=== PATIENT | female | born 1945 | race Caucasian/White ===

== ENCOUNTER → 2017-03-30 | Outpatient (CLI) | payer MEDICARE, BC ==
--- NOTE | 2017-03-30 10:37 | CT ---
EXAMINATION TYPE: CT abdomen pelvis wo con DATE OF EXAM: 03/30/2017 9:52 AM COMPARISON: NONE HISTORY: RUQ and RLQ pain CT DLP: 971.40 mGycm FINDINGS: LUNG BASES: No evidence for nodule. No evidence for infiltrate. LIVER/GB: There is evidence of cholelithiasis. Fatty infiltration is noted. No space-occupying hepati c lesion. PANCREAS: No pancreatic mass identified. No inflammatory process seen. SPLEEN: No evidence for splenomegaly. No intrasplenic lesions seen. ADRENALS: No adrenal nodules identified. No evidence for thickening. KIDNEYS: No evidence for renal mass. Left-sided extrarenal pelvis is suggested. No nephrolithiasis. N o hydronephrosis. BOWEL: Appendix has a normal appearance. No evidence of bowel obstruction. No inflammatory process. S igmoid diverticulosis without diverticulitis. Lymph nodes: No evidence for adenopathy greater than 1 cm. Abdominal aorta: Atheromatous changes seen. No evidence for aneurysm. Genital organs: No significant abnormality. Other: No significant abnormality. IMPRESSION: 1. UNCOMPLICATED CHOLELITHIASIS. 2. Hepatic steatosis.
== END | disposition home or self-care (01) ==
LOC: RADCTMAIN 09:35
PROVIDERS: ATTEND Family Medicine
DX: K80.20 Calculus of gallbladder without cholecystitis without obstruction (principal); K76.0 Fatty (change of) liver, not elsewhere classified; Z88.8 Allergy status to other drugs, medicaments and biological substances
CPT/HCPCS: 74176

== ENCOUNTER → 2017-04-22 | Outpatient (CLI) | payer MEDICARE, BC ==
--- NOTE | 2017-04-22 11:04 | US ---
EXAMINATION TYPE: US abdomen complete DATE OF EXAM: 04/22/2017 8:16 AM COMPARISON: NONE CLINICAL HISTORY: 71-year-old female R10.11 RUQ abdominal pain, K80.0 Gallstones. TECHNIQUE: Multiple sonographic images of the abdomen are obtained. FINDINGS: PHOTOGRAPH INSPECTOR NOTES: Patient of very large body habitus, technically difficult and somewhat limited st udy. EXAM MEASUREMENTS: Liver Length: 19.5 cm Gallbladder Wall: 0.2 cm CBD: 0.5 cm Spleen: 11.2 cm Right Kidney: 11.6 x 5.0 x 4.6 cm Left Kidney: 11.4 X 5.1 x 5.4 cm Pancreas: Limited visualization of the tail secondary to shadowing from bowel gas. Remaining portion s appear within normal limits. Liver: Echogenic and attenuating and mildly enlarged. This secondarily limits assessment for focal le shelli. There is some nodular hypoechoic areas along the gallbladder fossa suggesting focal fatty spari ng. Gallbladder: Small layering calculi present within measuring up to 7 mm. No abnormal gallbladder dis tention, wall thickening, or pericholecystic fluid. CBD: wnl Spleen: wnl Right Kidney: No hydronephrosis. Left Kidney: There is either a 2.8 cm parapelvic cyst in the upper pole or calyceal dilatation. Upper IVC: Not well seen Abd Aorta: bifurcation not visualized due to overlying bowel IMPRESSION: 1. Cholelithiasis without ancillary findings of acute cholecystitis at this time. 2. Hepatomegaly with moderate to severe hepatic steatosis. Correlate with LFTs, lipid profile, and pa tient risk factors. 3. Either a 2.8 cm parapelvic cyst or upper pole calyceal dilatation within the left kidney. Recommen d reassessment in 3 - 6 months.
== END | disposition home or self-care (01) ==
LOC: RADUSWWP 07:42
PROVIDERS: ATTEND Family Medicine
DX: K80.20 Calculus of gallbladder without cholecystitis without obstruction (principal); R16.0 Hepatomegaly, not elsewhere classified
CPT/HCPCS: 76700

== ENCOUNTER → 2017-04-29 | Outpatient (CLI) | payer MEDICARE, BC ==
[2017-04-29 15:27] LABS: ALT 20 U/L (9-52); AST 20 U/L (14-36); Alkaline Phosphatase 110 U/L (38-126); Anion Gap 11 mmol/L; Blood Urea Nitrogen 11 mg/dL (7-17); Calcium 9.5 mg/dL (8.4-10.2); Carbon Dioxide 27 mmol/L (22-30); Chloride 104 mmol/L (98-107); Glucose 148 mg/dL (74-99); Non-African American GFR(MDRD) >60 (>60 ml/min/1.73 sqM); Potassium 3.4 mmol/L (3.5-5.1); Sodium 142 mmol/L (137-145); Total Bilirubin 0.4 mg/dL (0.2-1.3); Total Protein 6.5 g/dL (6.3-8.2)
== END | disposition home or self-care (01) ==
LOC: LABWHC1 14:22
PROVIDERS: ATTEND Family Medicine
DX: R16.0 Hepatomegaly, not elsewhere classified (principal)
CPT/HCPCS: 36415; 80053

== ENCOUNTER → 2017-05-11 | Outpatient (CLI) | payer MEDICARE, BC ==
--- NOTE | 2017-05-11 13:54 | XR ---
EXAMINATION TYPE: XR cervical spine limited DATE OF EXAM: 05/11/2017 COMPARISON: NONE HISTORY: Chronic neck pain TECHNIQUE: 3 views are submitted. FINDINGS: The odontoid view is nondiagnostic but appears intact on the lateral view.. There are no compression deformities. The prevertebral soft tissue structures are within normal limits. Degenerative disc d isease at all levels with most marked changes at levels C5-6 and C6-C7 with facet arthropathy also no tresa at all levels. Posterior spondylosis C4-5 and C5-C6 may result in canal stenosis. IMPRESSION: 1. Multilevel degenerative disc disease with cervical spondylosis. Consider follow-up MRI.
== END | disposition home or self-care (01) ==
LOC: RADXRMAIN 13:19
PROVIDERS: ATTEND Family Medicine
DX: M50.322 Other cervical disc degeneration at C5-C6 level (principal); M47.812 Spondylosis without myelopathy or radiculopathy, cervical region
CPT/HCPCS: 72040

== ENCOUNTER → 2017-06-15 | Outpatient (CLI) | payer MEDICARE, BC ==
--- NOTE | 2017-06-15 14:01 | MR ---
EXAMINATION TYPE: MR cervical spine wo con DATE OF EXAM ORDERED: 06/15/2017 1:48 PM HISTORY: M47.012 osteoarthritis. TECHNOLOGIST HISTORY AT TIME OF EXAM: osteoarthritis COMPARISON: None. TECHNIQUE: Multiplanar, multiecho imaging of the cervical spine was obtained without contrast on a 1 .5 marito magnet. FINDINGS: Prevertebral soft tissues are normal. Vertebral body height and alignment are maintained. Atlantoaxial relationships are normal. There is abnormal signal within the medulla and the yudith. This may simply represent layering degenera tion. Cord signal is unremarkable. At C2-C3, is mild disc space loss. There is mild left-sided intervertebral foraminal narrowing. There is a diffuse disc displacement. There is mild hypertrophic changes in the left facet. There is mild uncovertebral joint disease. At C3-C4, there is disc space loss. There is a diffuse disc displacement. There is bilateral interver tebral foraminal narrowing. The facets are unremarkable. There is uncovertebral joint disease. At C4-C5, there is disc space loss. There is a mixed spondylitic bar present posteriorly deforming th e thecal sac without definite cord contact. The intervertebral foramina are narrowed bilaterally. The re is uncovertebral joint disease. There is mild facet arthropathy on the right. At C5-C6, there is disc space loss. There is a mixed spondylitic bar present posteriorly deforming th e thecal sac without cord contact. There is bilateral intervertebral foraminal narrowing, worse on th e right than the left. There is uncovertebral joint disease. The facets are unremarkable. At C6-C7, there is disc space loss. There is no significant compressive discopathy. There is bilatera l intervertebral foraminal narrowing which is relatively severe. There is mild facet arthropathy. The re is uncovertebral joint disease. At C7-T1, no definite abnormality is seen. IMPRESSION: 1. EXTENSIVE DEGENERATIVE CHANGE. 2. MULTILEVEL INTERVERTEBRAL FORAMINAL NARROWING. 3. ABNORMAL SIGNAL WITHIN THE YUDITH MAY REPRESENT WALLERIAN DEGENERATION. THIS COULD BE CONFIRMED WITH AN MRI OF THE BRAIN.
== END | disposition home or self-care (01) ==
LOC: RADMRIMAIN 13:09
PROVIDERS: ATTEND Family Medicine
DX: M99.71 Connective tissue and disc stenosis of intervertebral foramina of cervical region (principal); M47.812 Spondylosis without myelopathy or radiculopathy, cervical region
CPT/HCPCS: 72141

== ENCOUNTER → 2017-07-02 | Outpatient (CLI) | payer MEDICARE, BC ==
--- NOTE | 2017-07-02 08:54 | MR ---
EXAMINATION TYPE: MR brain wo con DATE OF EXAM: 07/02/2017 8:45 AM. COMPARISON: Previous MRI of the cervical spine dated 06/15/2017. HISTORY: Abnormal MRI of the cervical spine. Technique: Multiplanar, multiecho imaging of the brain was obtained without intravenous contrast. FINDINGS: There is a partially empty sella. Midline structures are otherwise unremarkable. There is a normal craniocervical junction. Echoplanar diffusion imaging is normal. There continues to be some abnormal signal within the alicia. This likely reflects layering degeneratio n. There are both punctate and confluent FLAIR lesions in the deep white matter tracts of the cerebral h emispheres. These are nonspecific. A differential diagnosis includes demyelination, small vessel dise ase, hypertension, migraine headaches and Lyme's disease. There is no mass effect or midline shift. I do not see evidence of intracranial blood. There is mild mucoperiosteal thickening involving the right frontal and ethmoid sinuses bilaterally a s well as the right maxillary sinus. The orbits are normal. There are normal vascular flow voids. There is no evidence of a CP angle mass lesion. IMPRESSION: 1. NO ACUTE INTRACRANIAL ABNORMALITY. 2. BOTH CONFLUENT AND PUNCTATE PERIVENTRICULAR WHITE MATTER FLAIR LESIONS LIKELY REFLECTING SMALL VES LEIGH ANN DISEASE. 3. CHANGES WITHIN THE ALICIA ARE FELT TO REFLECT LIMITED DEGENERATION. 4. PARTIALLY EMPTY SELLA. 5. MILD SINUS MUCOSAL DISEASE.
== END | disposition home or self-care (01) ==
LOC: RADMRIMAIN 08:02
PROVIDERS: ATTEND Family Medicine
DX: R90.89 Other abnormal findings on diagnostic imaging of central nervous system (principal)
CPT/HCPCS: 70551

== ENCOUNTER → 2018-01-16 | Outpatient (CLI) | payer MEDICARE ==
[2018-01-16 13:32] LABS: Blood Urea Nitrogen 14 mg/dL (7-17)
--- NOTE | 2018-01-16 14:59 | CT ---
EXAMINATION TYPE: CT angio chest DATE OF EXAM: 01/16/2018 COMPARISON: CT chest November 12, 2016 and older studies July 13, 2016. HISTORY: Aortic aneurysm follow-up. Shortness of breath. CT DLP: 390.4 mGycm. Automated Exposure Control for Dose Reduction was Utilized. CONTRAST: CTA scan of the thorax is performed with IV Contrast, patient injected with 100 mL of Omnipaque 350, pulmonary embolism protocol. MIP Images are created on CT scanner and reviewed. FINDINGS: LUNGS: Scattered small nodules throughout the left lung remain present. Largest nodule inferior later al left upper lobe on axial image 22 measures 6 x 4 mm and is not significantly changed in size from last 2 CTs. Additional scattered stable nodules are seen on axial images 16, 24, 30, 34, and 37 for r eference. There are similar stable scattered right-sided lung nodules redemonstrated. For reference 2 small nodules axial image 30 are unchanged from priors. No pleural effusion or pneumothorax is seen. Lungs are grossly clear. Tracheobronchial tree is patent. MEDIASTINUM: There is no CT evidence for central pulmonary embolism. There are no greater than 1 cm hilar or mediastinal lymph nodes. No significant pericardial effusion is seen. Cardiomegaly is rede monstrated. Coronary artery calcification is again seen which is noted marker for coronary artery dis ease. Ascending aorta measures 3.8 x 3.7 cm diameter axial image 28 not significantly changed from la st 2 studies. OTHER: Stone filled contracted gallbladder is redemonstrated. IMPRESSION: Accounting for technical differences, presumed stable borderline aneurysmal change of asc ending aorta measuring up to 3.8 cm in diameter on current study. Stable scattered bilateral pulmonar y nodules. No significant new finding seen.
== END | disposition home or self-care (01) ==
LOC: RADCTMAIN 12:52
PROVIDERS: ATTEND Internal Medicine
DX: R91.8 Other nonspecific abnormal finding of lung field (principal)
CPT/HCPCS: 82565; 84520; 71275; 36415; Q9967

== ENCOUNTER → 2018-07-06 | Outpatient (CLI) | payer MEDICARE ==
--- NOTE | 2018-07-07 03:20 | MR ---
EXAMINATION TYPE: MR knee LT wo con DATE OF EXAM: 07/06/2018 COMPARISON: None HISTORY: Lt knee pain, no trauma, poss stress fracture TECHNIQUE: Multiplanar, multisequence imaging of the left knee is performed without IV contrast. FINDINGS: There is a mild knee joint effusion. The posterior cruciate ligament is intact. There is partial tear of the anterior cruciate ligament. There is essentially obliteration of the anterior horn of the lateral meniscus. Posterior horn of the lateral meniscus shows small horizontal tear. There is small horizontal tear of the posterior horn medial meniscus extending to the inferior surfac e. There is severe narrowing of the anterior medial joint space with thinning of the anterior horn me dial meniscus. There is hypertrophic spurring of the femoral and tibial condyles. There is moderate n arrowing of the patellofemoral joint space with spur formation. The collateral ligaments are intact. There is a 8mm degenerative cyst in the subchondral lateral tibial condyle. There is a rounded 6 mm mixed signal lesion within the lateral joint space. This could be an intra-ar ticular loose body related to synovial chondromatosis. I see no fracture. IMPRESSION: Partial tear anterior cruciate ligament. Hypertrophic moderate osteoarthritis. Narrowing of the joint spaces. Patellofemoral joint space is severely narrowed. Obliteration of the anterior horn of the la teral meniscus. Degenerative thinning and displacement of the anterior horn medial meniscus. Horizont al tears of the posterior horn of the medial and lateral meniscus. Intra-articular loose body in the lateral joint space.
== END | disposition home or self-care (01) ==
LOC: RADMRIMAIN 18:55
PROVIDERS: ATTEND Family Medicine
DX: S83.512A Sprain of anterior cruciate ligament of left knee, initial encounter (principal); M17.12 Unilateral primary osteoarthritis, left knee; M25.862 Other specified joint disorders, left knee; S83.242A Other tear of medial meniscus, current injury, left knee, initial encounter; S83.282A Other tear of lateral meniscus, current injury, left knee, initial encounter

== ENCOUNTER → 2018-08-09 | Outpatient (CLI) | payer MEDICARE ==
[2018-08-09 10:39] LABS: HCT 42.2 % (34.0-46.0); HGB 13.4 gm/dL (11.4-16.0); MCHC 31.6 g/dL (31.0-37.0); MCV 91.8 fL (80.0-100.0); Mean Platelet Volume 7.1; Platelet Count 321 k/uL (150-450); WBC 8.3 k/uL (3.8-10.6)
[2018-08-09 10:50] LABS: Albumin 3.6 g/dL (3.5-5.0); Calcium 9.3 mg/dL (8.4-10.2); Potassium 4.1 mmol/L (3.5-5.1); Total Bilirubin 0.5 mg/dL (0.2-1.3); Total Protein 6.7 g/dL (6.3-8.2)
[2018-08-09 10:58] LABS: Partial Thromboplastin Time 23.1 sec (22.0-30.0)
[2018-08-09 11:07] LABS: Appearance,Urine Cloudy (Clear); Bacteria,Urine Many /hpf; Bilirubin,Urine Negative (Negative); Blood,Urine Moderate (Negative); Color,Urine Yellow; Glucose,Urine (UA) Negative (Negative); Hyaline Casts,Urine 1 /lpf (0-2); Ketones,Urine Negative (Negative); Leukocyte Esterase,Urine Moderate (Negative); Mucus,Urine Moderate /hpf; Nitrite,Urine Positive (Negative); PH, Urine 5.5 (5.0-8.0); Protein,Urine Trace (Negative); RBC,Urine 2 /hpf (0-5); Specific Gravity,Urine 1.023 (1.001-1.035); Squamous Epithelial Cell,Urine 5 /hpf (0-4); WBC,Urine 19 /hpf (0-5)
== END | disposition home or self-care (01) ==
LOC: LABPAT 10:06
PROVIDERS: ATTEND Orthopaedic Surgery Sports Medicine
DX: Z01.812 Encounter for preprocedural laboratory examination (principal); Z01.818 Encounter for other preprocedural examination; Z79.01 Long term (current) use of anticoagulants
CPT/HCPCS: 80053; 81001; 85027; 85610; 85730; 87070; 93005

== ENCOUNTER 2018-08-17 12:16 | Inpatient (IN) | payer MEDICARE ==
[2018-08-11 12:05] VITALS: BMI 33.7
[~2018-08-17 12:16] MED LIST: ACETAMINOPHEN TAB 500 MG TAB PO ONE; DEXAMETHASONE SOD PHOSPHATE 10 MG/ML 1 ML VIAL IV ONE; HYDROmorphone 0.5 MG/0.5 ML SYRINGE IVP PRN; LACTATED RINGERS 1,000 ML IV SCH; LIDOCAINE 1% 20 ML VIAL (10MG/ML) FOR IV START INTRADERMA PRN; MELOXICAM 7.5 MG TAB PO ONE; MIDAZOLAM 2 MG/2 ML VIAL IV PRN; NALBUPHINE 10 MG/ML VIAL (10ML MDV) IV PRN; NALOXONE 0.4 MG/ML 1 ML VIAL IV PRN; ONDANSETRON 4 MG/2 ML VIAL IVP ONE; TRANEXAMIC ACID 1,000 MG in SODIUM CHLORIDE 0.9% 50 ML IVPB ONE; VANCOMYCIN 1,500 MG in SODIUM CHLORIDE 0.9% 250 ML IVPB ONE; diphenhydrAMINE 50 MG/ML 1 ML VIAL IVP PRN; fentaNYL (PF) 50 MCG/ML 2 ML AMP IV PRN
[2018-08-17] MEDS ORDERED: ceFAZolin 2,000 MG in DEXTROSE/WATER 1 50ML.BAG IVPB STA (13:01)
[2018-08-17] MEDS ORDERED: ONDANSETRON 4 MG/2 ML VIAL IVP PRN (13:14)
[2018-08-17] MEDS ORDERED: HYDROcodone/APAP 10-325MG 1 EACH TAB PO PRN (13:14)
[2018-08-17] MEDS ORDERED: traMADol 50 MG TAB PO PRN (13:14)
[2018-08-17] MEDS ORDERED: HYDROmorphone 1 MG/ML 1 ML SYRINGE IVP PRN ×3 (13:14)
[2018-08-17] MEDS ORDERED: TEMAZEPAM 15 MG CAP PO PRN (13:14)
[2018-08-17] MEDS ORDERED: NA PHOS,M-B/NA PHOS,DI-BA 133 ML ENEMA RECTAL PRN (13:14)
[2018-08-17] MEDS ORDERED: DIAZEPAM 5 MG TAB PO PRN (13:14)
[2018-08-17] MEDS ORDERED: BISACODYL 10 MG SUPP RECTAL PRN (13:14)
[2018-08-17] MEDS ORDERED: HYDROcodone/APAP 7.5-325MG 1 EACH TAB PO PRN (13:14)
[2018-08-17] MEDS ORDERED: hydrOXYzine PAMOATE 25 MG CAP PO PRN (13:14)
[2018-08-17] MEDS ORDERED: NALOXONE 0.4 MG/ML 1 ML VIAL IV PRN (13:14)
[2018-08-17] MEDS ORDERED: HYDROcodone/APAP 5-325MG 1 EACH TAB PO PRN ×2 (13:14)
[2018-08-17] MEDS ORDERED: MAGNESIUM HYDROXIDE 2,400 MG/10 ML CUP PO PRN (13:14)
[2018-08-17] MEDS ORDERED: ceFAZolin IN SWFI 2 GM/20 ML SYRINGE IVP ONE (13:15)
[2018-08-17] MEDS: ROPIVACAINE 246.25 MG, EPINEPHrine 0.5 MG, KETOROLAC 30 MG, cloNIDine HCL/PF 80 MCG, WA... MISCELLANE ONE ×10 (14:14→16:30)
[2018-08-17] MEDS ORDERED: PROPOFOL 10 MG/ML 20 ML VIAL IV ONE (15:54)
[2018-08-17] MEDS ORDERED: diphenhydrAMINE 50 MG/ML 1 ML VIAL ONE (15:54)
[2018-08-17] MEDS ORDERED: fentaNYL (PF) 50 MCG/ML 2 ML AMP ONE (15:54)
[2018-08-17] MEDS ORDERED: TRANEXAMIC ACID 1,000 MG/10 ML VIAL ONE (15:54)
[2018-08-17] MEDS ORDERED: SODIUM CHLORIDE 0.9% 100 ML BAG ONE (15:54)
[2018-08-17] MEDS ORDERED: MORPHINE SULFATE (PF) 0.3 MG/0.3 ML SYR ONE (15:54)
[2018-08-17] MEDS ORDERED: MIDAZOLAM 2 MG/2 ML VIAL ONE (15:54)
[2018-08-17] MEDS ORDERED: ceFAZolin 3,000 MG in SODIUM CHLORIDE 0.9% IRRIGATIO 3,000 ML IRRIGATION ONE (16:19)
--- NOTE | 2018-08-17 18:06 | OP ---
OPERATIVE REPORT DATE OF PROCEDURE: 08/17/2018 SURGEON: Nakul James MD VENEER STACKER: Dante Dougherty PA-C PREOPERATIVE DIAGNOSIS: Left knee osteoarthrosis. POSTOPERATIVE DIAGNOSIS: Left knee osteoarthrosis. OPERATION: Left total knee arthroplasty. ANESTHESIA: Spinal with sedation. ESTIMATED BLOOD LOSS: 100 mL. TOURNIQUET TIME: 42 minutes @ 250 mmHg. COMPLICATIONS: None apparent. DRAINS: None. DISPOSITION: Post-Anesthesia Care Unit. INDICATIONS: Ana is a 72-year-old female with longstanding history of left knee pain. History and physical examination are consistent with advanced left knee osteoarthrosis. She has been through significant nonoperative management up to this point. Further treatment options were discussed, and she decided to go forward with left total knee arthroplasty. The risks of the procedure were discussed with her in detail. These risks include but are not limited to risk of infection, nerve damage, bleeding, pain and a risk of deep vein thrombosis which could lead to fatal pulmonary embolism. There is also a risk of loosening of the implant which could require revision operation. The patient understands these risks. All of her questions with regard to the risks were answered to her satisfaction. Appropriate informed consent was obtained. DESCRIPTION OF THE PROCEDURE: The patient was identified in the preoperative holding area. Surgical site was marked by both the patient and myself. She was given 2 grams of Ancef IV for prophylactic purposes. She was then transferred to the operative suite. She was placed supine on the operating room table. Spinal anesthetic was then administered and dosed per the anesthesia department without apparent complication. Examination under anesthesia was then performed. The patient was 2-3 degrees shy of full extension. She had 100 degrees of flexion, and the medial collateral ligament, lateral collateral ligament and posterior cruciate ligaments were stable. Tourniquet was then placed high on the left upper thigh, well padded in preparation for surgery. The patient's left lower extremity was then prepped and draped in the usual sterile fashion. Standard surgical pause was undertaken to ensure that we were operating on the correct site and that appropriate preoperative antibiotics had been given. All staff in the room were in agreement and we proceeded. The outlines of the patella were marked with a surgical pen. A planned 12 cm vertical incision centered over the patella was marked with a surgical pen. Leg was then exsanguinated with an Esmarch dressing. The knee was then flexed and the tourniquet was inflated to 250 mmHg. The total tourniquet time for the procedure was 42 minutes. Incision was then made with a 10 blade scalpel. Dissection was carried down sharply to the overlying fascia. Great care was taken to minimize the skin flaps. The knee was then exposed using standard medial parapatellar approach. A small cuff of quadriceps tendon was then left for suturing. She was in quite a bit of valgus preoperatively. A very minimal medial release was made. This was made just enough to place the retractors medially. The medial meniscus was then excised as well. The lateral meniscus was also released anteriorly. The leg was then externally rotated. The patella was everted. The knee was flexed. The retractors were then placed to protect the collateral ligaments. I then proceeded to remove the infrapatellar fat pad. This was excised sharply tangentially with the fibers of the patellar tendon. I then proceeded to remove peripheral osteophytes. This was done with a rongeur. I then proceeded with the distal femoral resection. She did have near-full extension. A planned 9 mm resection was then done. The femoral canal was then entered in the midline of the femur approximately 10 mm anterior to the origin of the posterior cruciate ligament. The liu was then advanced down the center of the femur and placed intramedullary. Based on preoperative radiographs, the angle between the anatomic and mechanical axis of the femur was approximately 4-5 degrees. The valgus angle of the femoral cutting guide was then set at 4 degrees for the left knee. The distal femoral cutting guide was then advanced over the intramedullary liu. This was seated firmly against the femur. I then, as mentioned, planned to take 9 mm off the distal femur. The cutting block was then secured onto the femur with pins. The jig was removed and the distal femoral cut was made through the slot of the block. The pins were then removed and the distal femoral cutting block was removed. The accuracy of the distal femoral cuts was checked with 2 flat bars. I then proceeded with femoral sizing. Posterior referencing sizing guide was held firmly against the resected distal surface of the femur. Posterior condyles were resting on the posterior plane of the guide. The sizing stylus was then placed onto the anterior femur. The size was measured as a size 7. I then assessed for femoral rotation. The plan was for 3 degrees of external rotation. Three degrees of external rotation was placed onto the jig. These holes were then marked. I then confirmed the rotation by 3 separate methods. This was done using epicondylar axis as well as Whitesides line and posterior referencing. It was deemed that the external rotation was proper. I then went forward with placing the femoral cutting block. This was placed over the previously placed pin holes. The Jorge wing was then placed onto the anterior slots to ensure that we would not notch the anterior femur with the anterior femoral cut. I then proceeded with the anterior femoral cut. This was flush with the anterior cortex of the femur. The posterior cuts were then made followed by the anterior chamfer cut and then the posterior chamfer cut. The cutting block was then removed. Throughout the resection, the collateral ligaments were protected with retractors. I then placed a trial size 7 femur. It fit very nice medial to lateral and fit flush with the distal end of the femur. The drill holes were then made. I then proceeded with the tibial cut. I planned for a cruciate-retaining knee. The guide was placed and set for varus, valgus and for slope. The height was set for an approximate 2 mm resection from the lateral tibial plateau, which was the lower side. I was happy with the alignment and the amount of resection. The cutting block was then pinned to the proximal tibia. The alignment liu was removed and the proximal tibia was resected with a reciprocating saw. Again this was done with retractors protecting the collateral ligaments as well as the posterior cruciate ligament. I then proceeded to evaluate the flexion and extension gaps. A 10 mm block was placed. The flexion and extension gaps were equal. I then proceeded with resection of posterior osteophytes. She had very minimal posterior osteophytes. This was done using a curved osteotome. This resected the posterior osteophytes, and posterior capsule stripping was also done off the posterior aspect of the femur at this time. The osteophytes were removed. I then proceeded with resection of the patella. The thickness of the patella was measured using a caliper. The thickness was 22 mm. The thickness of the anticipated patellar dome was taken into account. Resection was then performed and confirmed to be equal in 4 quadrants using a caliper. Approximately 14 mm of bone remained after resection. A 29 x 8 mm standard patellar trial was then placed. The holes were drilled and the trial was then placed. I then proceeded with sizing the tibial plate. A size E tibial plate fit very nicely. I then placed the trial femur, the tibial tray and the patellar button. A 10 mm trial tibial insert was also placed. The components fit very nicely. She had full extension and flexion. The extension and flexion gaps were equal and stable to both varus and valgus stress. The patella tracked appropriately. The tibial tray rotation was marked with a Bovie. This was externally rotated properly. I then proceeded with tibial preparation. I first drilled the femoral holes removed femoral component. The tibial tray was then set for proper external rotation as well as mediolateral placement onto the tibia. It was pinned into place. I then proceeded with punching the keel. I then decided to proceed with cementing of all of our components. The knee was thoroughly irrigated with sterile saline solution via pulse lavage. The lateral geniculate artery was identified and cauterized. All blood was removed from the bone of the tibia, femur and patella with pulse lavage. I then proceed with cementing. Two packs of antibiotic bone cement were prepared on the back table by the surgical services tech. I then proceeded with cementing of the tibia first. The cement was impacted into the keel as well as deeply seated in the bone. A second coat of cement was then placed. The tibia was then impacted into place. Excess cement was removed with Dickerson's and Joker's. I then proceeded with cementing of the femoral component. The femoral component was also cemented using standard technique. Excess cement was removed. A 10 mm trial insert was then placed into the knee. It was brought into full extension with a constant axial load placed until the cement had hardened. The patellar component was then cemented. This was held firmly with a compressive device until the cement had dried. When the cement had dried, the knee was taken out of extension. All excess cement was removed from around the prosthesis. I then trialed the knee with a 10 mm insert. Flexion and extension gaps were appropriate. I then trialed with an 11 mm insert. The flexion and extension gaps felt better. The knee was stable with an 11 mm insert. It came into full extension. I decided to go forward with an 11 mm cross-linked cruciate- retaining tibial insert. Polyethylene was then placed onto the tray and locked into place. The knee was then reduced. The knee was again further irrigated with sterile saline solution with antibiotic added. The tourniquet was then deflated. The total tourniquet time for the procedure was 42 minutes at 250 mmHg. Final components were Marcos Persona size 7 cruciate-retaining femoral component, a size E tibial tray, an 11 mm medial-congruent cruciate-retaining polyethylene insert, and a 29 x 8 mm patella. I then proceeded with closure. Again the knee was thoroughly irrigated. The quadriceps tendon and the medial retinaculum were reapproximated with #2 Ethibond suture. The extensor mechanism was then closed with a running #2 Quill suture. Subcutaneous tissues were closed with 2-0 Vicryl interrupted suture. The skin was closed with running 3-0 Quill suture. Dermabond was applied to the incision. Sterile compressive dressing was then applied. All sponge and needle counts were deemed correct prior to closure. The patient tolerated the procedure without apparent complication. She was transferred to the recovery room in stable condition. MMODL / IJN: [id number] /
[2018-08-17] MEDS ORDERED: LACTATED RINGERS 1,000 ML IV ONE (18:19)
--- NOTE | 2018-08-17 18:29 | XR ---
EXAMINATION TYPE: XR knee limited LT DATE OF EXAM: 08/17/2018 COMPARISON: 10/19/2013 HISTORY: Postop TECHNIQUE: 2 views FINDINGS: There is a left knee prosthesis. Components appear in anatomic position. IMPRESSION: Knee prosthesis without evidence of a complicating process.
[2018-08-17] MEDS ORDERED: ALPRAZolam 0.25 MG TAB PO PRN (20:03)
[2018-08-17] MEDS ORDERED: ALBUTEROL NEBULIZED 2.5 MG/3 ML INHALATION PRN (20:03)
[2018-08-17] MEDS ORDERED: CITALOPRAM HYDROBROMIDE 20 MG TAB PO SCH (21:00)
[2018-08-17] MEDS: LACTATED RINGERS 1,000 ML IV SCH ×2 (21:00→21:03)
[2018-08-17] MEDS ORDERED: SENNOSIDES-DOCUSATE SODIUM 1 EACH TAB PO SCH (21:00)
[2018-08-17 21:59] VITALS: RESP 16
[2018-08-18] MEDS ORDERED: VANCOMYCIN 1,500 MG in SODIUM CHLORIDE 0.9% 250 ML IVPB ONE (01:00)
[2018-08-18] MEDS: LACTATED RINGERS 1,000 ML IV SCH ×2 (01:00→08:58)
--- NOTE | 2018-08-18 06:46 | P.PN ---
Progress Note - Text Date: 08/18 Time:640am Patient is status post total knee replacement by Dr. James. Patient seen this morning with VAS score of 0.no c/o pruritus, no c/o nausea/vomiting, comfortable and doing well.
[2018-08-18] MEDS ORDERED: PANTOPRAZOLE 40 MG TABLET PO SCH (07:30)
[2018-08-18 08:00] LABS: Basophils % (A) 0 %; Eosinophils % (A) 0 %; HCT 35.9 % (34.0-46.0); HGB 11.5 gm/dL (11.4-16.0); Lymphocytes # (A) 2.2 k/uL (1.0-4.8); Lymphocytes % (A) 13 %; MCH 29.8 pg (25.0-35.0); MCHC 32.2 g/dL (31.0-37.0); MCV 92.6 fL (80.0-100.0); Mean Platelet Volume 7.4; Monocytes # (A) 0.7 k/uL (0-1.0); Monocytes % (A) 4 %; Neutrophils # (A) 13.5 k/uL (1.3-7.7); Neutrophils % (A) 81 %; Platelet Count 296 k/uL (150-450); RBC 3.88 m/uL (3.80-5.40); RDW 13.2 % (11.5-15.5); WBC 16.6 k/uL (3.8-10.6)
--- NOTE | 2018-08-18 08:20 | P.CONS ---
History of Present Illness - Reason for Consult Consult date: 08/18/18 - Chief Complaint Knee osteoarthritis - History of Present Illness This is a consultation on a 72-year-old white female with history of asthma and hypertension who is essentially here for knee replacement. The patient is sitting bedside quite comfortable. No postoperative nausea or vomiting. Appetite is nominal. No significant fever or chills are stated. Pain is fairly well controlled with appropriate postoperative protocol. Review of Systems Constitutional: Denies chills, Denies fever Eyes: denies blurred vision, denies pain Ears, nose, mouth and throat: Denies headache, Denies sore throat Cardiovascular: Reports as per HPI Respiratory: Denies cough Gastrointestinal: Denies abdominal pain, Denies diarrhea, Denies nausea, Denies vomiting Genitourinary: Denies dysuria, Denies hematuria Past Medical History Past Medical History: Asthma, CVA/TIA, Deep Vein Thrombosis (DVT), GERD/Reflux, Hypertension Additional Past Medical History / Comment(s): "mini stroke-no residual",urinary leakage, restless leg syndrome, "thickening in left lung per recent scan", states upset stomach most, "lung aneurysm", States Hx of Rheumatic Fever, Measles x5 and several occurances of Mumps when she was a child,varicose veins History of Any Multi-Drug Resistant Organisms: None Reported Past Surgical History: Hernia Repair, Tonsillectomy, Tubal Ligation Additional Past Surgical History / Comment(s): vein stripping left leg,left carpel tunnel Past Anesthesia/Blood Transfusion Reactions: No Reported Reaction, Motion Sickness Additional Past Anesthesia/Blood Transfusion Reaction / Comm: no hx blood transfusion Smoking Status: Never smoker - Past Family History Mother Family Medical History: Cancer Additional Family Medical History / Comment(s): Lung cancer Father Family Medical History: Hypertension Medications and Allergies Home Medications Medication Instructions Recorded Confirmed Type ALPRAZolam [Xanax] 0.25 mg PO TID PRN 07/14/16 08/17/18 History Acetaminophen Tab [Tylenol Tab] 1,000 mg PO Q6H PRN 07/14/16 08/17/18 History Calcium Citrate 500 mg PO DAILY 07/14/16 08/17/18 History Clopidogrel [Plavix] 75 mg PO DAILY 07/14/16 08/17/18 History Multivitamins, Thera [Multivitamin] 1 tab PO DAILY 07/14/16 08/17/18 History amLODIPine BESYLATE [Norvasc] 10 mg PO QAM 07/14/16 08/17/18 History Albuterol Sulfate [Proventil Hfa] 1 - 2 puff INHALATION RT-Q6H PRN 08/11/18 History Citalopram Hydrobromide [CeleXA] 20 mg PO HS 08/17/18 08/17/18 History Omeprazole 40 mg PO DAILY 08/17/18 08/17/18 History Sulfamethox-Tmp 800-160Mg [Bactrim 1 tab PO Q12HR 08/17/18 08/17/18 History DS 800-160 mg] Allergies Allergy/AdvReac Type Severity Reaction Status Date / Time albuterol Allergy Severe Rapid Verified 08/17/18 19:52 Heart Rate,see comment Physical Exam Vitals: Vital Signs Temp Pulse Pulse Resp BP BP Pulse Ox 08/17/18 23:59 97.6 F 78 16 100/62 92 L 08/17/18 22:29 94 L 08/17/18 21:15 86 106/67 91 L 08/17/18 21:00 87 105/55 89 L 08/17/18 20:45 87 118/74 90 L 08/17/18 20:30 92 108/72 88 L 08/17/18 20:15 88 117/49 94 L 08/17/18 20:00 85 123/75 95 08/17/18 19:45 82 99/63 95 08/17/18 19:30 83 107/70 94 L 08/17/18 19:15 86 98/52 08/17/18 19:00 81 100/53 08/17/18 18:45 98 F 84 16 101/51 94 L 08/17/18 18:15 78 18 117/55 95 08/17/18 18:02 75 18 109/55 95 08/17/18 17:45 83 18 118/59 96 08/17/18 17:38 98.8 F 83 16 120/58 92 L 08/17/18 13:03 97.8 F 77 16 193/81 93 L Intake and Output 08/17/18 08/18/18 08/18/18 22:59 06:59 14:59 Intake Total 951 1250 Output Total 400 Balance 551 1250 Intake: IV 751 Intake, IV Titration 200 1250 Amount Lactated Ringers 1,000 ml 200 1000 @ 100 mls/hr IV .Q10H [facility] Rx#:[id number] Vancomycin 1,500 mg In 250 Sodium Chloride 0.9% 250 ml @ 125 mls/hr IVPB ONCE ONE Rx#:[id number] Output: Urine 300 Estimated Blood Loss 100 Other: Voiding Method Toilet # Voids 1 - Constitutional General appearance: no acute distress - EENT Eyes: EOMI - Neck Neck: no lymphadenopathy - Respiratory Respiratory: bilateral: CTA - Cardiovascular Rhythm: regular Heart sounds: normal: S1, S2 Abnormal Heart Sounds: no S3 Gallop - Gastrointestinal General gastrointestinal: soft, no tenderness Results CBC & Chem 7: 08/18/18 07:07 Labs: Abnormal Lab Results - Last 24 Hours (Table) 08/18/18 Range/Units 07:07 WBC 16.6 H (3.8-10.6) k/uL Neutrophils # 13.5 H (1.3-7.7) k/uL Assessment and Plan (1) Knee osteoarthritis Current Visit: Yes Status: Acute Code(s): M17.10 - UNILATERAL PRIMARY OSTEOARTHRITIS, UNSPECIFIED KNEE SNOMED Code(s): 089795325 (2) History of DVT (deep vein thrombosis) Current Visit: Yes Status: Acute Code(s): Z86.718 - PERSONAL HISTORY OF OTHER VENOUS THROMBOSIS AND EMBOLISM SNOMED Code(s): 157070979 (3) Asthma Current Visit: Yes Status: Acute Code(s): J45.909 - UNSPECIFIED ASTHMA, UNCOMPLICATED SNOMED Code(s): 667864141 (4) Hypertension Current Visit: Yes Status: Acute Code(s): I10 - ESSENTIAL (PRIMARY) HYPERTENSION SNOMED Code(s): 63776414 Plan: reconcile home medications. Hypertension parameters for blood pressure control. The patient is full code. Appropriate pain control. See orders otherwise. Ancillary discharge in next 2440 hours if stable. Otherwise, Dr. Corona's group will covering for the weekend. Time with Patient: Greater than 30
[2018-08-18 08:54] VITALS: BP 118/76; PULSE 75; TEMP 97.8
[2018-08-18] MEDS ORDERED: MULTIVITAMINS, THERA 1 EACH TAB PO SCH ×2 (09:00→13:16)
[2018-08-18] MEDS ORDERED: CLOPIDOGREL 75 MG TAB PO SCH (09:00)
[2018-08-18] MEDS ORDERED: amLODIPine 10 MG TAB PO SCH (09:00)
[2018-08-18] MEDS ORDERED: CALCIUM CARBONATE 500 MG CHEWABLE PO SCH (09:00)
--- NOTE | 2018-08-18 11:15 | P.DS ---
Providers Date of admission: 08/17/18 12:16 Expected date of discharge: 08/18/18 Attending physician: Nakul James Consults: 08/17/18 13:14 Consult Physician Routine Consulting Provider: Anmol Rey Consult Reason/Comments: post op medical management Do you want consulting provider notified?: Yes Primary care physician: Anmol Rey - Discharge Diagnosis(es) (1) Knee osteoarthritis Patient was admitted to the OR on 08/18/2018 to undergo a left total knee arthroplasty. She had failed conservative measures as an outpatient and desired to proceed with elective surgery after given informed consent. She underwent the above procedure which she tolerated well without complication. Postoperative hospital course has remained without complication. On day of discharge she is afebrile, vital signs stable, labs within acceptable ranges, tolerating by mouth meds and diet, voiding without difficulty, positive flatus, denies abdominal pain or calf pain, pain is controlled on oral pain medication and has no new complaints. Wound is benign, neurovascular status is intact, calf is soft and nontender, abdomen soft and nontender. Review of systems is negative for numbness, tingling, fever, chills, chest pain, shortness breath, nausea, vomiting, dizziness, headaches, slurred speech or other. Current Visit: Yes Status: Acute Priority: Medium Procedures: Left TKA Patient Condition at Discharge: Good Plan - Discharge Summary Discharge Rx Participant: No New Discharge Prescriptions: No Action ALPRAZolam [Xanax] 0.25 mg PO TID PRN PRN Reason: Anxiety amLODIPine BESYLATE [Norvasc] 10 mg PO QAM Clopidogrel [Plavix] 75 mg PO DAILY Acetaminophen Tab [Tylenol Tab] 1,000 mg PO Q6H PRN PRN Reason: Pain Multivitamins, Thera [Multivitamin] 1 tab PO DAILY Calcium Citrate 500 mg PO DAILY Albuterol Sulfate [Proventil Hfa] 1 - 2 puff INHALATION RT-Q6H PRN PRN Reason: Shortness Of Breath Sulfamethox-Tmp 800-160Mg [Bactrim DS 800-160 mg] 1 tab PO Q12HR Omeprazole 40 mg PO DAILY Citalopram Hydrobromide [CeleXA] 20 mg PO HS Discharge Medication List ALPRAZolam [Xanax] 0.25 mg PO TID PRN 07/14/16 [History] Acetaminophen Tab [Tylenol Tab] 1,000 mg PO Q6H PRN 07/14/16 [History] Calcium Citrate 500 mg PO DAILY 07/14/16 [History] Clopidogrel [Plavix] 75 mg PO DAILY 07/14/16 [History] Multivitamins, Thera [Multivitamin] 1 tab PO DAILY 07/14/16 [History] amLODIPine BESYLATE [Norvasc] 10 mg PO QAM 07/14/16 [History] Albuterol Sulfate [Proventil Hfa] 1 - 2 puff INHALATION RT-Q6H PRN 08/11/18 [ History] Citalopram Hydrobromide [CeleXA] 20 mg PO HS 08/17/18 [History] Omeprazole 40 mg PO DAILY 08/17/18 [History] Sulfamethox-Tmp 800-160Mg [Bactrim DS 800-160 mg] 1 tab PO Q12HR 08/17/18 [ History] Follow up Appointment(s)/Referral(s): [facility], [NON-STAFF] -
== END 2018-08-18 14:00 | disposition home health service (06) | DRG 470 ==
LOC: 2ORMAIN 12:16 → 3SUR 18:33
PROVIDERS: ADMIT Orthopaedic Surgery Sports Medicine; ATTEND Orthopaedic Surgery Sports Medicine
PROC: 0SRD0J9 Replacement of Left Knee Joint with Synthetic Substitute, Cemented, Open Approach (ICD-10-PCS; principal; 2018-08-17 15:35)
DX: M17.12 Unilateral primary osteoarthritis, left knee (principal); I10 Essential (primary) hypertension; J45.909 Unspecified asthma, uncomplicated; G25.81 Restless legs syndrome; F41.9 Anxiety disorder, unspecified; K21.9 Gastro-esophageal reflux disease without esophagitis; N39.41 Urge incontinence; Z79.02 Long term (current) use of antithrombotics/antiplatelets; Z79.899 Other long term (current) drug therapy; Z86.718 Personal history of other venous thrombosis and embolism; Z86.73 Personal history of transient ischemic attack (TIA), and cerebral infarction without residual deficits; Z86.19 Personal history of other infectious and parasitic diseases; Z98.51 Tubal ligation status; Z88.8 Allergy status to other drugs, medicaments and biological substances; Z80.1 Family history of malignant neoplasm of trachea, bronchus and lung; Z82.49 Family history of ischemic heart disease and other diseases of the circulatory system; Z80.49 Family history of malignant neoplasm of other genital organs
CPT/HCPCS: 85025; 88300; 94760

== ENCOUNTER → 2019-02-09 | Outpatient (CLI) | payer OTHER ==
--- NOTE | 2019-02-09 13:08 | XR ---
EXAMINATION TYPE: XR thoracic spine 2V DATE OF EXAM: 02/09/2019 COMPARISON: NONE HISTORY: Pain Alignment is anatomic. There is no compression deformities. Vertebral body height and disc interspa gena are maintained. Curvature the spine. Degenerative changes seen. Diffuse osteopenia. Pedicles int act. IMPRESSION: 1. Diffuse osteopenia with multilevel degenerative change.
--- NOTE | 2019-02-09 13:12 | XR ---
EXAM TYPE: LUMBAR SPINE X RAY SERIES COMPARISON: 10/19/2013 HISTORY: Pain TECHNIQUE: 4 views are submitted. FINDINGS: There is diffuse osteopenia. Arthropathy of the right SI joint noted. There is grade 1 anterolisthesi s L4 on L5 with multilevel severe facet arthropathy and multilevel moderate to severe degenerative di sc disease. There is a moderate superior endplate compression fracture of L3. IMPRESSION: 1. Severe multilevel degenerative disc disease and facet arthropathy with grade 1 anterolisthesis L4 on L5. 2. Superior endplate compression fracture L3 of indeterminate age but likely chronic. Correlate with MRI as clinically warranted.
== END ==
LOC: RADXRMAIN 11:43
PROVIDERS: ATTEND Family Medicine
DX: M43.16 Spondylolisthesis, lumbar region (principal); M51.36 Other intervertebral disc degeneration, lumbar region; M46.96 Unspecified inflammatory spondylopathy, lumbar region; S32.039A Unspecified fracture of third lumbar vertebra, initial encounter for closed fracture; M47.814 Spondylosis without myelopathy or radiculopathy, thoracic region; M85.88 Other specified disorders of bone density and structure, other site
CPT/HCPCS: 72070; 72100

== ENCOUNTER 2021-01-25 18:54 | Emergency (ER) | payer MEDICARE ==
[2021-01-25 18:59] VITALS: BP 171/95; PULSE 88; RESP 22; TEMP 98
[2021-01-25] MEDS ORDERED: MORPHINE SULFATE 2 MG/ML SYRINGE IM STA (19:16)
--- NOTE | 2021-01-25 19:19 | ED ---
Extremity Problem HPI - General Chief complaint: Extremity Problem,Nontraumatic Stated complaint: Fall, R knee Pain Time Seen by Provider: 01/25/21 19:03 Source: patient, RN notes reviewed Mode of arrival: ambulatory Limitations: no limitations - History of Present Illness Initial comments: Patient is 75-year-old female presents to emergency department complaining of right knee pain status post fall approximately 1 week ago on Tuesday at 10:30 in the morning. She noted that she did not go to the doctor or get any x-rays done, she's regretting it today because he has been urinating or since then. She notes that she can walk on it with no issue is just sore. She does have old bruising at the superior aspect of the patella on the medial aspect of the knee. She states the pain is about 8 out of 10 currently worse with walking throbbing while in bed. She notes that she does have a high pain tolerance [place] pain medication. She denied any tenderness to the touch decreased range of motion decreased strength weakness numbness tingling chest pain shortness of breath headache nausea vomiting diarrhea constipation fever fatigue chills - Related Data Home Medications Medication Instructions Recorded Confirmed ALPRAZolam [Xanax] 0.25 mg PO TID PRN 07/14/16 08/17/18 Acetaminophen Tab [Tylenol Tab] 1,000 mg PO Q6H PRN 07/14/16 08/17/18 Calcium Citrate 500 mg PO DAILY 07/14/16 08/17/18 Clopidogrel [Plavix] 75 mg PO DAILY 07/14/16 08/17/18 Multivitamins, Thera [Multivitamin] 1 tab PO DAILY 07/14/16 08/17/18 amLODIPine BESYLATE [Norvasc] 10 mg PO QAM 07/14/16 08/17/18 Albuterol Sulfate [Proventil Hfa] 1 - 2 puff INHALATION RT-Q6H PRN 08/11/18 08/17/18 Citalopram Hydrobromide [CeleXA] 20 mg PO HS 08/17/18 08/17/18 Omeprazole 40 mg PO DAILY 08/17/18 08/17/18 Sulfamethox-Tmp 800-160Mg [Bactrim 1 tab PO Q12HR 08/17/18 08/17/18 DS 800-160 mg] Previous Rx's Medication Instructions Recorded Aspirin 325 mg PO BID #60 tab 08/18/18 Docusate [Colace] 100 mg PO BID #60 capsule 08/18/18 HYDROcodone/APAP 7.5-325MG [[place] 1 - 2 tab PO Q6HR PRN #56 tab 08/18/18 7.5-325] Allergies Allergy/AdvReac Type Severity Reaction Status Date / Time albuterol Allergy Severe Rapid Verified 01/25/21 18:58 Heart Rate,see comment Review of Systems ROS Statement: Those systems with pertinent positive or pertinent negative responses have been documented in the HPI. ROS Other: All systems not noted in ROS Statement are negative. Past Medical History Past Medical History: Asthma, CVA/TIA, Deep Vein Thrombosis (DVT), GERD/Reflux, Hypertension Additional Past Medical History / Comment(s): "mini stroke-no residual",urinary leakage, restless leg syndrome, "thickening in left lung per recent scan", states upset stomach most, "lung aneurysm", States Hx of Rheumatic Fever, Measles x5 and several occurances of Mumps when she was a child,varicose veins History of Any Multi-Drug Resistant Organisms: None Reported Past Surgical History: Hernia Repair, Tonsillectomy, Tubal Ligation Additional Past Surgical History / Comment(s): vein stripping left leg,left carpel tunnel Past Anesthesia/Blood Transfusion Reactions: No Reported Reaction, Motion Sickness Additional Past Anesthesia/Blood Transfusion Reaction / Comment(s): no hx blood transfusion Past Psychological History: Anxiety Smoking Status: Never smoker Past Alcohol Use History: None Reported Past Drug Use History: None Reported - Past Family History Mother Family Medical History: Cancer Additional Family Medical History / Comment(s): Lung cancer Father Family Medical History: Hypertension General Exam Limitations: no limitations General appearance: alert, in no apparent distress, obese Head exam: Present: atraumatic, normocephalic, normal inspection Eye exam: Present: normal appearance, PERRL, EOMI. Absent: scleral icterus, conjunctival injection, periorbital swelling Neck exam: Present: normal inspection. Absent: tenderness, meningismus, lymphadenopathy Respiratory exam: Present: normal lung sounds bilaterally. Absent: respiratory distress, wheezes, rales, rhonchi, stridor Cardiovascular Exam: Present: regular rate, normal rhythm, normal heart sounds. Absent: systolic murmur, diastolic murmur, rubs, gallop, clicks Extremities exam: Present: normal inspection, full ROM, normal capillary refill, other (Ecchymosis to the right knee superior-medial aspect). Absent: tenderness, pedal edema, joint swelling, calf tenderness Neurological exam: Present: alert, oriented X3, CN II-XII intact Psychiatric exam: Present: normal affect, normal mood Skin exam: Present: warm, dry, intact, normal color. Absent: rash Course Vital Signs 01/25/21 18:56 Temperature 98 F Pulse Rate 88 Respiratory 22 Rate Blood Pressure 171/95 O2 Sat by Pulse 95 Oximetry Medical Decision Making - Medical Decision Making 75-year-old female complaining of right knee pain status post fall 1 week ago Complete right knee x-ray, 2 mg morphine ordered for pain. No acute fracture or abnormality. Case discussed with Dr. dunn, was decided the patient could discharge home with conservative management. - Radiology Data Radiology results: report reviewed, image reviewed Complete right knee x-ray: Moderate hypertrophic osteoarthritis no fracture. Disposition Clinical Impression: Knee osteoarthritis, Knee pain Disposition: HOME SELF-CARE Condition: Stable Instructions (If sedation given, give patient instructions): Knee Pain (ED), Arthralgia (ED) Additional Instructions: Please return to the Emergency Department if symptoms worsen or any other concerns. Follow-up primary care 1-2 days. Rest ice elevate compress, use ice or heating pads as needed for conservative pain management. Continue to take [id number] pain medications for symptom control. Is patient prescribed a controlled substance at d/c from ED?: No Referrals: Anmol Rey MD [Primary Care Provider] - 1-2 days Ishaan Rodas DO [Doctor of Osteopathic Medicine] - 1-2 days Time of Disposition: 20:22
--- NOTE | 2021-01-25 20:14 | XR ---
EXAMINATION TYPE: XR knee complete RT DATE OF EXAM: 01/25/2021 COMPARISON: NONE HISTORY: Pain TECHNIQUE: 3 views FINDINGS: There is moderate narrowing of the medial joint space. There is spurring of the femoral and tibial condyles. There is mild calcification of the lateral meniscus. I see no fracture nor dislocat ion. There is spurring on the patella. IMPRESSION: Moderate hypertrophic osteoarthritis. No fracture.
== END 2021-01-25 20:45 | disposition home or self-care (01) ==
LOC: EC 18:54
DX: M17.11 Unilateral primary osteoarthritis, right knee (principal); J45.909 Unspecified asthma, uncomplicated; K21.9 Gastro-esophageal reflux disease without esophagitis; F41.9 Anxiety disorder, unspecified; I10 Essential (primary) hypertension; Z86.73 Personal history of transient ischemic attack (TIA), and cerebral infarction without residual deficits; Z86.718 Personal history of other venous thrombosis and embolism; Z98.51 Tubal ligation status; Z90.09 Acquired absence of other part of head and neck; Z79.02 Long term (current) use of antithrombotics/antiplatelets; Z79.82 Long term (current) use of aspirin
CPT/HCPCS: 73562; 99283; 96372; J2270

== ENCOUNTER 2021-10-13 18:23 | Inpatient (IN) | payer MEDICARE ==
[2021-10-13] MEDS ORDERED: methylPREDNISolone SOD SUCCI 125 MG/2 ML VIAL IV STA (19:56)
[2021-10-13 20:30] LABS: Basophils % (A) 0 %; Eosinophils % (A) 0 %; HCT 40.9 % (34.0-46.0); HGB 13.6 gm/dL (11.4-16.0); Lymphocytes # (A) 1.3 k/uL (1.0-4.8); Lymphocytes % (A) 19 %; MCH 30.1 pg (25.0-35.0); MCHC 33.3 g/dL (31.0-37.0); MCV 90.5 fL (80.0-100.0); Mean Platelet Volume 8.5; Monocytes # (A) 0.3 k/uL (0-1.0); Monocytes % (A) 5 %; Neutrophils # (A) 5.2 k/uL (1.3-7.7); Neutrophils % (A) 75 %; Platelet Count 183 k/uL (150-450); RBC 4.52 m/uL (3.80-5.40); RDW 12.1 % (11.5-15.5)
[2021-10-13 20:38] LABS: INR 0.9 (<1.2); Partial Thromboplastin Time 23.9 sec (22.0-30.0); Prothrombin Time 10.2 sec (9.0-12.0)
[2021-10-13 20:47] LABS: Albumin 3.5 g/dL (3.5-5.0); Calcium 8.7 mg/dL (8.4-10.2); Magnesium 1.6 mg/dL (1.6-2.3); Potassium 3.5 mmol/L (3.5-5.1); Total Bilirubin 0.5 mg/dL (0.2-1.3); Total Protein 6.6 g/dL (6.3-8.2)
--- NOTE | 2021-10-13 20:47 | ED ---
General Adult HPI - General Chief complaint: Shortness of Breath Stated complaint: sob Time Seen by Provider: 10/13/21 19:47 Source: patient, RN notes reviewed, old records reviewed Mode of arrival: wheelchair Limitations: no limitations - History of Present Illness Initial comments: 68-year-old female presenting with cough and dyspnea. No measured fever. No central chest pain. Patient had been treated as an outpatient for pneumonia. She has a history of asthma. She has had several sick contacts but has not had a confirmatory testing of patient with coronavirus. She is not currently vaccinated. - Related Data Home Medications Medication Instructions Recorded Confirmed ALPRAZolam [Xanax] 0.25 mg PO TID PRN 07/14/16 10/13/21 Clopidogrel [Plavix] 75 mg PO DAILY 07/14/16 10/13/21 Citalopram Hydrobromide [CeleXA] 20 mg PO HS 08/17/18 10/13/21 Omeprazole 40 mg PO BID 08/17/18 10/13/21 Albuterol Sulfate [Proventil Hfa] 1 puff INHALATION RT-Q6H PRN 10/13/21 10/13/21 Montelukast Sodium [Singulair] 10 mg PO DAILY PRN 10/13/21 10/13/21 Tolterodine Tartrate [Tolterodine 4 mg PO DAILY 10/13/21 10/13/21 Tartrate ER] amLODIPine [Norvasc] 5 mg PO DAILY 10/13/21 10/13/21 rOPINIRole HCL [Requip] 0.5 mg PO HS 10/13/21 10/13/21 Allergies Allergy/AdvReac Type Severity Reaction Status Date / Time albuterol Allergy Severe Rapid Verified 10/13/21 21:28 Heart Rate,see comment Review of Systems ROS Statement: Those systems with pertinent positive or pertinent negative responses have been documented in the HPI. ROS Other: All systems not noted in ROS Statement are negative. Past Medical History Past Medical History: Asthma, CVA/TIA, Deep Vein Thrombosis (DVT), GERD/Reflux, Hypertension Additional Past Medical History / Comment(s): "mini stroke-no residual",urinary leakage, restless leg syndrome, "thickening in left lung per recent scan", states upset stomach most, "lung aneurysm", States Hx of Rheumatic Fever, Measles x5 and several occurances of Mumps when she was a child,varicose veins History of Any Multi-Drug Resistant Organisms: None Reported Past Surgical History: Hernia Repair, Tonsillectomy, Tubal Ligation Additional Past Surgical History / Comment(s): vein stripping left leg,left carpel tunnel Past Anesthesia/Blood Transfusion Reactions: No Reported Reaction, Motion Sickness Additional Past Anesthesia/Blood Transfusion Reaction / Comment(s): no hx blood transfusion Past Psychological History: Anxiety Smoking Status: Never smoker Past Alcohol Use History: None Reported Past Drug Use History: None Reported - Past Family History Mother Family Medical History: Cancer Additional Family Medical History / Comment(s): Lung cancer Father Family Medical History: Hypertension General Exam Limitations: no limitations General appearance: alert, in no apparent distress Head exam: Present: atraumatic, normocephalic Eye exam: Present: normal appearance, PERRL ENT exam: Present: normal exam Neck exam: Present: normal inspection. Absent: tenderness, meningismus Respiratory exam: Present: wheezes, rhonchi, decreased breath sounds. Absent: respiratory distress Cardiovascular Exam: Present: regular rate, normal rhythm GI/Abdominal exam: Present: soft. Absent: distended, tenderness, guarding Extremities exam: Present: normal inspection, normal capillary refill. Absent: pedal edema, calf tenderness Neurological exam: Present: alert, oriented X3, CN II-XII intact. Absent: motor sensory deficit Psychiatric exam: Present: normal affect, normal mood Skin exam: Present: warm, dry, intact. Absent: cyanosis, diaphoretic Course Vital Signs 10/13/21 19:16 Temperature 98.2 F Pulse Rate 78 Respiratory 18 Rate Blood Pressure 139/75 O2 Sat by Pulse 94 L Oximetry EKG Findings - EKG Comments: EKG Findings:: EKG: Normal sinus rhythm, rate of 70, AK interval 196, QRS duration 98, QTC 451, no ST segment elevation. Medical Decision Making - Medical Decision Making 76-year-old female not vaccinated against coronavirus presenting with increased cough and dyspnea. Chest x-ray performed as an outpatient was negative for larg e focal pneumonia. She had a normal CBC, normal CMP, negative troponin, negative BNP. Her coronavirus test was positive. She was transfused monoclonal antibodies in the emergency department as well as given steroids. On reevaluation the patient still is moderate dyspnea. She will be admitted for IV steroids, IV fluid and reevaluation. She has an ALLERGY to albuterol and therefore no bronchodilators will be given currently. Case discussed with Dr. Rey. - Lab Data Result diagrams: 10/13/21 Unknown 10/13/21 Unknown Lab Results 10/13/21 10/13/21 10/13/21 Range/Units 20:43 Unknown Unknown WBC 7.0 (3.8-10.6) k/uL RBC 4.52 (3.80-5.40) m/uL Hgb 13.6 (11.4-16.0) gm/dL Hct 40.9 (34.0-46.0) % MCV 90.5 (80.0-100.0) fL MCH 30.1 (25.0-35.0) pg MCHC 33.3 (31.0-37.0) g/dL RDW 12.1 (11.5-15.5) % Plt Count 183 (150-450) k/uL MPV 8.5 Neutrophils % 75 % Lymphocytes % 19 % Monocytes % 5 % Eosinophils % 0 % Basophils % 0 % Neutrophils # 5.2 (1.3-7.7) k/uL Lymphocytes # 1.3 (1.0-4.8) k/uL Monocytes # 0.3 (0-1.0) k/uL Eosinophils # 0.0 (0-0.7) k/uL Basophils # 0.0 (0-0.2) k/uL PT 10.2 (9.0-12.0) sec INR 0.9 (<1.2) APTT 23.9 (22.0-30.0) sec Sodium (137-145) mmol/L Potassium (3.5-5.1) mmol/L Chloride (98-107) mmol/L Carbon Dioxide (22-30) mmol/L Anion Gap mmol/L BUN (7-17) mg/dL Creatinine (0.52-1.04) mg/dL Est GFR (CKD-EPI)AfAm (>60 ml/min/1.73 sqM) Est GFR (CKD-EPI)NonAf (>60 ml/min/1.73 sqM) Glucose (74-99) mg/dL Plasma Lactic Acid Olvin (0.7-2.0) mmol/L Calcium (8.4-10.2) mg/dL Magnesium (1.6-2.3) mg/dL Total Bilirubin (0.2-1.3) mg/dL AST (14-36) U/L ALT (4-34) U/L Alkaline Phosphatase (38-126) U/L Troponin I (0.000-0.034) ng/mL NT-Pro-B Natriuret Pep pg/mL Total Protein (6.3-8.2) g/dL Albumin (3.5-5.0) g/dL Coronavirus (PCR) Detected A (Not Detectd) 10/13/21 10/13/21 10/13/21 Range/Units Unknown Unknown Unknown WBC (3.8-10.6) k/uL RBC (3.80-5.40) m/uL Hgb (11.4-16.0) gm/dL Hct (34.0-46.0) % MCV (80.0-100.0) fL MCH (25.0-35.0) pg MCHC (31.0-37.0) g/dL RDW (11.5-15.5) % Plt Count (150-450) k/uL MPV Neutrophils % % Lymphocytes % % Monocytes % % Eosinophils % % Basophils % % Neutrophils # (1.3-7.7) k/uL Lymphocytes # (1.0-4.8) k/uL Monocytes # (0-1.0) k/uL Eosinophils # (0-0.7) k/uL Basophils # (0-0.2) k/uL PT (9.0-12.0) sec INR (<1.2) APTT (22.0-30.0) sec Sodium 135 L (137-145) mmol/L Potassium 3.5 (3.5-5.1) mmol/L Chloride 101 (98-107) mmol/L Carbon Dioxide 25 (22-30) mmol/L Anion Gap 9 mmol/L BUN 11 (7-17) mg/dL Creatinine 0.79 (0.52-1.04) mg/dL Est GFR (CKD-EPI)AfAm 84 (>60 ml/min/1.73 sqM) Est GFR (CKD-EPI)NonAf 73 (>60 ml/min/1.73 sqM) Glucose 113 H (74-99) mg/dL Plasma Lactic Acid Olvin 1.5 (0.7-2.0) mmol/L Calcium 8.7 (8.4-10.2) mg/dL Magnesium 1.6 (1.6-2.3) mg/dL Total Bilirubin 0.5 (0.2-1.3) mg/dL AST 29 (14-36) U/L ALT 13 (4-34) U/L Alkaline Phosphatase 102 (38-126) U/L Troponin I <0.012 (0.000-0.034) ng/mL NT-Pro-B Natriuret Pep pg/mL Total Protein 6.6 (6.3-8.2) g/dL Albumin 3.5 (3.5-5.0) g/dL Coronavirus (PCR) (Not Detectd) 10/13/21 Range/Units Unknown WBC (3.8-10.6) k/uL RBC (3.80-5.40) m/uL Hgb (11.4-16.0) gm/dL Hct (34.0-46.0) % MCV (80.0-100.0) fL MCH (25.0-35.0) pg MCHC (31.0-37.0) g/dL RDW (11.5-15.5) % Plt Count (150-450) k/uL MPV Neutrophils % % Lymphocytes % % Monocytes % % Eosinophils % % Basophils % % Neutrophils # (1.3-7.7) k/uL Lymphocytes # (1.0-4.8) k/uL Monocytes # (0-1.0) k/uL Eosinophils # (0-0.7) k/uL Basophils # (0-0.2) k/uL PT (9.0-12.0) sec INR (<1.2) APTT (22.0-30.0) sec Sodium (137-145) mmol/L Potassium (3.5-5.1) mmol/L Chloride (98-107) mmol/L Carbon Dioxide (22-30) mmol/L Anion Gap mmol/L BUN (7-17) mg/dL Creatinine (0.52-1.04) mg/dL Est GFR (CKD-EPI)AfAm (>60 ml/min/1.73 sqM) Est GFR (CKD-EPI)NonAf (>60 ml/min/1.73 sqM) Glucose (74-99) mg/dL Plasma Lactic Acid Olvin (0.7-2.0) mmol/L Calcium (8.4-10.2) mg/dL Magnesium (1.6-2.3) mg/dL Total Bilirubin (0.2-1.3) mg/dL AST (14-36) U/L ALT (4-34) U/L Alkaline Phosphatase (38-126) U/L Troponin I (0.000-0.034) ng/mL NT-Pro-B Natriuret Pep 518 pg/mL Total Protein (6.3-8.2) g/dL Albumin (3.5-5.0) g/dL Coronavirus (PCR) (Not Detectd) Disposition Clinical Impression: Pneumonia due to COVID-19 virus Disposition: ADMITTED IP TO THIS [facility] Condition: Stable Is patient prescribed a controlled substance at d/c from ED?: No Referrals: Anmol Rey MD [Primary Care Provider] - 1-2 days Decision to Admit Reason: Admit from EC Decision Date: 10/13/21 Decision Time: 22:45
--- NOTE | 2021-10-13 22:40 | CT ---
EXAMINATION TYPE: CT angio chest DATE OF EXAM: 10/13/2021 COMPARISON: 01/16/2018 HISTORY: cough, SOB CT DLP: 321.7 mGycm Automated exposure control for dose reduction was used. CONTRAST: Performed with IV Contrast, patient injected with 85cc mL of Isovue 370. There are 3-D post processed images. Heart is enlarged. There is no pericardial effusion. There are small bilateral pleural effusions. There is patchy peripheral bilateral pulmonary predominantly interstitial infiltrates. No suspicious pulmonary mass. There is some atelectasis at the lung bases. Thoracic aorta is atheromatous. Ascending aorta measures 4 cm. There are no hilar masses. There is no mediastinal adenopathy. There are a few bronchial lymph nodes up to 1.5 cm. There is normal contrast opacification of the pulmonary arteries. There are no filling defects. The bony thorax is intact. Up per abdominal soft tissues are intact. IMPRESSION: bilateral pulmonary infiltrates consistent with multifocal pneumonia. Small pleural effusions. Cardi omegaly. Mild thoracic aortic aneurysm. Heart appears increased compared to old exam. There is probab ly congestive heart failure. no evidence of pulmonary embolism.
[2021-10-13] MEDS ORDERED: NALOXONE 0.4 MG/ML 1 ML VIAL IV PRN (22:42)
[2021-10-13] MEDS ORDERED: ONDANSETRON 4 MG/2 ML VIAL IVP PRN (22:42)
[2021-10-13] MEDS ORDERED: BAMLANIVIMAB (EUA) 700 MG, ETESEVIMAB (EUA) 1,400 MG in SODIUM CHLORIDE 0.9% 50 ML IVPB ONE (22:45)
[2021-10-13] MEDS ORDERED: SODIUM CHLORIDE 0.9% 50 ML IVPB ONE (22:45)
[2021-10-13] MEDS: SODIUM CHLORIDE 0.9% 1,000 ML IV SCH (23:34)
[2021-10-14] MEDS: methylPREDNISolone SOD SUCCI 125 MG/2 ML VIAL IV SCH ×3 (03:22→15:34)
[2021-10-14] MEDS ORDERED: ALPRAZolam 0.25 MG TAB PO PRN (08:11)
[2021-10-14] MEDS ORDERED: MONTELUKAST 10 MG TAB PO PRN (08:11)
--- NOTE | 2021-10-14 08:19 | P.HPIM ---
History of Present Illness H&P Date: 10/14/21 Chief Complaint: Weakness This is a history and physical on a 68-year-old white female who has an underlying history of ALLERGIES and asthma who came in yesterday with signifi cant weakness. There was no significant dyspnea but when I sent her for an x- ray she got weaker. There was no overt cough no fever but evaluation did show significant weakness: Positivity was noted on admission and she is now admitted. No known sick contacts she's quite sequestered. However she did go shopping about 5 days ago. 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 Otherwise history of asthma and reflux Review of Systems Constitutional: Denies chills, Denies fever Eyes: denies blurred vision, denies pain Ears, nose, mouth and throat: Denies headache, Denies sore throat Cardiovascular: Denies chest pain, Denies shortness of breath Respiratory: Reports congestion, Reports cough Gastrointestinal: Denies abdominal pain, Denies diarrhea, Denies nausea, Denies vomiting Genitourinary: Denies dysuria, Denies hematuria Past Medical History Past Medical History: Asthma, CVA/TIA, Deep Vein Thrombosis (DVT), GERD/Reflux, Hypertension Additional Past Medical History / Comment(s): "mini stroke-no residual",urinary leakage, restless leg syndrome, "thickening in left lung per recent scan", states upset stomach most, "lung aneurysm", States Hx of Rheumatic Fever, Measles x5 and several occurances of Mumps when she was a child,varicose veins History of Any Multi-Drug Resistant Organisms: None Reported Past Surgical History: Hernia Repair, Tonsillectomy, Tubal Ligation Additional Past Surgical History / Comment(s): vein stripping left leg,left carpel tunnel Past Anesthesia/Blood Transfusion Reactions: No Reported Reaction, Motion Sickness Additional Past Anesthesia/Blood Transfusion Reaction / Comment(s): no hx blood transfusion Past Psychological History: Anxiety Smoking Status: Never smoker Past Alcohol Use History: None Reported Past Drug Use History: None Reported - Past Family History Mother Family Medical History: Cancer Additional Family Medical History / Comment(s): Lung cancer Father Family Medical History: Hypertension Medications and Allergies Home Medications Medication Instructions Recorded Confirmed Type ALPRAZolam [Xanax] 0.25 mg PO TID PRN 07/14/16 10/13/21 History Clopidogrel [Plavix] 75 mg PO DAILY 07/14/16 10/13/21 History Citalopram Hydrobromide [CeleXA] 20 mg PO HS 08/17/18 10/13/21 History Omeprazole 40 mg PO BID 08/17/18 10/13/21 History Albuterol Sulfate [Proventil Hfa] 1 puff INHALATION RT-Q6H PRN 10/13/21 10/13/21 History Montelukast Sodium [Singulair] 10 mg PO DAILY PRN 10/13/21 10/13/21 History Tolterodine Tartrate [Tolterodine 4 mg PO DAILY 10/13/21 10/13/21 History Tartrate ER] amLODIPine [Norvasc] 5 mg PO DAILY 10/13/21 10/13/21 History rOPINIRole HCL [Requip] 0.5 mg PO HS 10/13/21 10/13/21 History Allergies Allergy/AdvReac Type Severity Reaction Status Date / Time albuterol Allergy Severe Rapid Verified 10/13/21 21:28 Heart Rate,see comment Physical Exam Vitals: Vital Signs Temp Pulse Resp BP Pulse Ox 10/14/21 06:38 69 16 141/66 95 10/13/21 23:23 72 17 142/82 93 L 10/13/21 19:16 98.2 F 78 18 139/75 94 L Intake and Output 10/13/21 10/14/21 10/14/21 22:59 06:59 14:59 Other: Weight 91.626 kg - Constitutional General appearance: mild distress - EENT Eyes: EOMI - Neck Neck: no lymphadenopathy - Respiratory Respiratory: bilateral: wheezing - Cardiovascular Rhythm: regular Heart sounds: normal: S1, S2 Abnormal Heart Sounds: no S3 Gallop - Gastrointestinal General gastrointestinal: soft, no tenderness - Integumentary Integumentary: no cellulitis - Musculoskeletal Musculoskeletal: generalized weakness - Psychiatric Psychiatric: A&O x's 3 Results CBC & Chem 7: 10/13/21 Unknown 10/13/21 Unknown Labs: Abnormal Lab Results - Last 24 Hours (Table) 10/13/21 10/13/21 Range/Units 20:43 Unknown Sodium 135 L (137-145) mmol/L Glucose 113 H (74-99) mg/dL Coronavirus (PCR) Detected A (Not Detectd) Assessment and Plan (1) Pneumonia due to COVID-19 virus Current Visit: Yes Status: Acute Code(s): U07.1 - COVID-19; J12.82 - Pneumonia due to coronavirus disease 2019 SNOMED Code(s): 870426139252678491 (2) Asthma Current Visit: No Status: Acute Code(s): J45.909 - UNSPECIFIED ASTHMA, UNCOMPLICATED SNOMED Code(s): 243335179 (3) History of DVT (deep vein thrombosis) Current Visit: No Status: Acute Code(s): Z86.718 - PERSONAL HISTORY OF OTHER VENOUS THROMBOSIS AND EMBOLISM SNOMED Code(s): 383950762 (4) Hypertension Current Visit: No Status: Acute Code(s): I10 - ESSENTIAL (PRIMARY) HYPERTENS ION SNOMED Code(s): 12394270 Plan: Antibody infusion given. Reconcile home medications. Check CBC and CMP in a.m. The patient is otherwise full code. Consult pulmonology. Anticipate discharge if she improves in the next 24-48 hours
[2021-10-14] MEDS: CLOPIDOGREL 75 MG TAB PO SCH (08:49)
[2021-10-14] MEDS: amLODIPine 5 MG TAB PO SCH (08:49)
[2021-10-14] MEDS: SODIUM CHLORIDE 0.9% 1,000 ML IV SCH (08:50)
[2021-10-14] MEDS: PANTOPRAZOLE 40 MG TABLET PO SCH ×2 (08:52→15:33)
[2021-10-14] MEDS: OXYBUTYNIN XL 5 MG TAB.ER.24 PO SCH (11:36)
[2021-10-14] MEDS: ACETAMINOPHEN TAB 325 MG TAB PO PRN (20:43)
[2021-10-14] MEDS: CITALOPRAM HYDROBROMIDE 20 MG TAB PO SCH (20:45)
[2021-10-15] MEDS: methylPREDNISolone SOD SUCCI 125 MG/2 ML VIAL IV SCH ×3 (01:08→16:41)
[2021-10-15] MEDS: SODIUM CHLORIDE 0.9% 1,000 ML IV SCH ×2 (05:31→17:22)
[2021-10-15] MEDS: PANTOPRAZOLE 40 MG TABLET PO SCH ×2 (08:31→16:41)
[2021-10-15] MEDS: CLOPIDOGREL 75 MG TAB PO SCH (08:31)
[2021-10-15] MEDS: amLODIPine 5 MG TAB PO SCH (08:31)
[2021-10-15] MEDS: OXYBUTYNIN XL 5 MG TAB.ER.24 PO SCH (08:31)
--- NOTE | 2021-10-15 08:47 | P.PN ---
Subjective Progress Note Date: 10/15/21 Principal diagnosis: This is a 68-year-old white female essentially admitted for: Pneumonia. Pulse ox is still dropping on room air to 83%. No significant nausea or vomiting. Sh e's not having issues tolerating diet no voiding difficulties. Weakness is stated The patient states that she has enough weakness where she would have difficulty completing the minimal ADLs at home. Objective - Vital Signs Vital signs: Vital Signs Temp 97.8 F 10/15/21 08:00 Pulse 70 10/15/21 08:00 Resp 16 10/15/21 08:00 BP 132/70 10/15/21 08:00 Pulse Ox 92 L 10/15/21 08:00 Intake & Output 10/14/21 10/15/21 10/15/21 18:59 06:59 18:59 Intake Total 118 825 118 Balance 118 825 118 Intake: Intake, IV Titration 825 Amount Sodium Chloride 0.9% 1, 825 000 ml @ 75 mls/hr IV . [id number] [facility] Rx#:[id number] Oral 118 118 - Constitutional General appearance: Present: average body habitus - EENT Eyes: Absent: abnormal pupil - Neck Neck: Absent: lymphadenopathy - Respiratory Respiratory: right: wheezing, bilateral: diminished - Cardiovascular Rhythm: regular Heart sounds: normal: S1, S2 Abnormal Heart Sounds: Absent: S3 Gallop - Gastrointestinal General gastrointestinal: Present: soft. Absent: tenderness - Integumentary Integumentary: Absent: cellulitis - Labs CBC & Chem 7: 10/13/21 Unknown 10/13/21 Unknown Assessment and Plan (1) Pneumonia due to COVID-19 virus Current Visit: Yes Status: Acute Code(s): U07.1 - COVID-19; J12.82 - Pneumonia due to coronavirus disease 2019 SNOMED Code(s): 164537005418425853 (2) Asthma Current Visit: No Status: Acute Code(s): J45.909 - UNSPECIFIED ASTHMA, UNCOMPLICATED SNOMED Code(s): 081012489 (3) History of DVT (deep vein thrombosis) Current Visit: No Status: Acute Code(s): Z86.718 - PERSONAL HISTORY OF OTHER VENOUS THROMBOSIS AND EMBOLISM SNOMED Code(s): 367647844 (4) Hypertension Current Visit: No Status: Acute Code(s): I10 - ESSENTIAL (PRIMARY) HYPERTE NSION SNOMED Code(s): 94300605 Plan: Antibody infusion given. Reconcile home medications. Check CBC and CMP in a.m. The patient is otherwise full code. Consult pulmonology. Anticipate discharge if she improves in the next 24-48 hours Continue steroids. Add vitamin C and zinc.
[2021-10-15 09:14] LABS: HGB 12.1 g/dL (12.0-15.0); MCH 28.9 pg (27.0-32.0); MCHC 31.8 g/dL (32.0-37.0); MCV 90.9 fL (80.0-97.0); Mean Platelet Volume 11.5 fL (9.5-12.2); Platelet Count 186 X 10*3/uL (140-440); RBC 4.18 X 10*6/uL (4.10-5.20); WBC 9.88 X 10*3/uL (4.50-10.00)
[2021-10-15] MEDS: ZINC SULFATE 220 MG CAP PO SCH (09:58)
[2021-10-15] MEDS: ASCORBIC ACID 500 MG TAB PO SCH (09:58)
--- NOTE | 2021-10-15 10:02 | P.CNPUL ---
History of Present Illness Consult date: 10/14/21 Reason for consult: dyspnea, cough Chief complaint: Shortness of breath and cough History of present illness: Patient is a 76-year-old morbidly obese nonsmoker start not feeling well aches pains shortness of breath for 2 weeks with intermittent cough, symptoms were consistent, she has a history of mild intermittent asthma, she has exposure to several sick contacts, presented to emergency department with above symptoms labs reviewed CBC within normal limit, she had a computed tomography scan done in the emergency department significant for bilateral patchy multifocal infiltrate consistent with the COVID-19 pneumonia admitted into the hospital and services Dr. Rey she still feel congested and short of breath but feels that severity or shortness of breath improved, she is on 2 L oxygen currently, Past medical history significant for mild intermittent asthma, CVA, DVT, GERD, hypertension hypertensive cardiovascular disease, Past surgical history significant for a venous stripping varicose veins, left-sided carpal tunnel surgery Review of Systems All systems: negative Past Medical History Past Medical History: Asthma, CVA/TIA, Deep Vein Thrombosis (DVT), GERD/Reflux, Hypertension Additional Past Medical History / Comment(s): "mini stroke-no residual",urinary leakage, restless leg syndrome, "thickening in left lung per recent scan", states upset stomach most, "lung aneurysm", States Hx of Rheumatic Fever, Measles x5 and several occurances of Mumps when she was a child,varicose veins History of Any Multi-Drug Resistant Organisms: None Reported Past Surgical History: Hernia Repair, Tonsillectomy, Tubal Ligation Additional Past Surgical History / Comment(s): vein stripping left leg,left carpel tunnel Past Anesthesia/Blood Transfusion Reactions: No Reported Reaction, Motion Sickness Additional Past Anesthesia/Blood Transfusion Reaction / Comment(s): no hx blood transfusion Past Psychological History: Anxiety Smoking Status: Never smoker Past Alcohol Use History: None Reported Past Drug Use History: None Reported - Past Family History Mother Family Medical History: Cancer Additional Family Medical History / Comment(s): Lung cancer Father Family Medical History: Hypertension Medications and Allergies Home Medications Medication Instructions Recorded Confirmed Type ALPRAZolam [Xanax] 0.25 mg PO TID PRN 07/14/16 10/13/21 History Clopidogrel [Plavix] 75 mg PO DAILY 07/14/16 10/13/21 History Citalopram Hydrobromide [CeleXA] 20 mg PO HS 08/17/18 10/13/21 History Omeprazole 40 mg PO BID 08/17/18 10/13/21 History Albuterol Sulfate [Proventil Hfa] 1 puff INHALATION RT-Q6H PRN 10/13/21 10/13/21 History Montelukast Sodium [Singulair] 10 mg PO DAILY PRN 10/13/21 10/13/21 History Tolterodine Tartrate [Tolterodine 4 mg PO DAILY 10/13/21 10/13/21 History Tartrate ER] amLODIPine [Norvasc] 5 mg PO DAILY 10/13/21 10/13/21 History rOPINIRole HCL [Requip] 0.5 mg PO HS 10/13/21 10/13/21 History Allergies Allergy/AdvReac Type Severity Reaction Status Date / Time albuterol Allergy Severe Rapid Verified 10/13/21 21:28 Heart Rate,see comment Physical Exam Vitals: Vital Signs Temp Pulse Pulse Resp BP BP Pulse Ox 10/14/21 15:09 97.6 F 73 16 152/70 96 10/14/21 11:47 97.9 F 75 16 133/62 92 L 10/14/21 09:08 92 L 10/14/21 08:30 73 18 10/14/21 07:14 98.1 F 73 18 148/69 92 L 10/14/21 06:38 69 16 141/66 95 10/13/21 23:23 72 17 142/82 93 L 10/13/21 19:16 98.2 F 78 18 139/75 94 L Intake and Output 10/14/21 10/14/21 10/14/21 06:59 14:59 22:59 Other: Weight 91.626 kg - Constitutional General appearance: disheveled, morbidly obese, no acute distress - EENT Eyes: EOMI, PERRLA Ears: bilateral: normal - Neck Neck: normal ROM Carotids: bilateral: upstroke normal Thyroid: bilateral: normal size - Respiratory Respiratory: bilateral: wheezing - Cardiovascular Rhythm: regular Heart sounds: normal: S1, S2 - Gastrointestinal General gastrointestinal: normal bowel sounds - Integumentary Integumentary: decreased turgor, normal turgor - Neurologic Neurologic: CNII-XII intact - Musculoskeletal Musculoskeletal: gait normal, generalized weakness, strength equal bilaterally - Psychiatric Psychiatric: A&O x's 3, appropriate affect, intact judgment & insight Results - Laboratory Findings CBC and BMP: 10/15/21 06:12 10/13/21 Unknown PT/INR, D-dimer PT 10.2 sec (9.0-12.0) 10/13/21 Unknown INR 0.9 (<1.2) 10/13/21 Unknown Abnormal lab findings: Abnormal Labs 10/13/21 10/13/21 20:43 Unknown Sodium 135 L Glucose 113 H Coronavirus (PCR) Detected A - Diagnostic Findings CT scan - chest: report reviewed, image reviewed (Finding as noted above) Assessment and Plan Assessment: COVID-19 pneumonia Acute hypoxic respiratory failure due to COVID-19 pneumonia History of chronic intermittent asthma but it appears to have acute exacerbation post covert TIA by history Remote History of DVT Plan: Patient has passed the window of REMdesivir and antibody therapy, patient has been started on IV steroids Patient refused bronchodilator Continue Singulair Continue home medications Follow clinical response of the therapy closely Time with Patient: Greater than 30
--- NOTE | 2021-10-15 10:07 | P.PN ---
Subjective Progress Note Date: 10/15/21 Principal diagnosis: COVID-19 pneumonia Acute hypoxic respiratory failure due to COVID-19 pneumonia History of chronic intermittent asthma but it appears to have acute exacerbation post covert TIA by history Remote History of DVT 10/15/2021, patient seen eval examined follow-up for asthma exacerbation COVID- 19 pneumonia, patient remains on IV steroids feels slightly better appetite has improved, but still complaining of severe generalized weakness, denies any chest pain, no fever or chills, computed tomography scan of the chest reviewed positive bilateral infiltrate noted however no pulmonary embolism Patient is a 76-year-old morbidly obese nonsmoker start not feeling well aches pains shortness of breath for 2 weeks with intermittent cough, symptoms were consistent, she has a history of mild intermittent asthma, she has exposure to several sick contacts, presented to emergency department with above symptoms labs reviewed CBC within normal limit, she had a computed tomography scan done in the emergency department significant for bilateral patchy multifocal i nfiltrate consistent with the COVID-19 pneumonia admitted into the hospital and services Dr. Rey she still feel congested and short of breath but feels that severity or shortness of breath improved, she is on 2 L oxygen currently, Past medical history significant for mild intermittent asthma, CVA, DVT, GERD, hypertension hypertensive cardiovascular disease, Past surgical history significant for a venous stripping varicose veins, left- sided carpal tunnel surgery Objective - Vital Signs Vital signs: Vital Signs Temp 97.8 F 10/15/21 08:00 Pulse 70 10/15/21 08:00 Resp 16 10/15/21 08:00 BP 132/70 10/15/21 08:00 Pulse Ox 92 L 10/15/21 08:00 Intake & Output 10/14/21 10/15/21 10/15/21 18:59 06:59 18:59 Intake Total 118 825 118 Balance 118 825 118 Intake: Intake, IV Titration 825 Amount Sodium Chloride 0.9% 1, 825 000 ml @ 75 mls/hr IV . [id number] [facility] Rx#:[id number] Oral 118 118 - Exam - Constitutional General appearance: disheveled, morbidly obese, no acute distress - EENT Eyes: EOMI, PERRLA Ears: bilateral: normal - Neck Neck: normal ROM Carotids: bilateral: upstroke normal Thyroid: bilateral: normal size - Respiratory Respiratory: bilateral: wheezing - Cardiovascular Rhythm: regular Heart sounds: normal: S1, S2 - Gastrointestinal General gastrointestinal: normal bowel sounds - Integumentary Integumentary: decreased turgor, normal turgor - Neurologic Neurologic: CNII-XII intact - Musculoskeletal Musculoskeletal: gait normal, generalized weakness, strength equal bilaterally - Psychiatric Psychiatric: A&O x's 3, appropriate affect, intact judgment & insight - Labs CBC & Chem 7: 10/15/21 06:12 10/13/21 Unknown Labs: Abnormal Lab Results - Last 24 Hours (Table) 10/15/21 Range/Units 06:12 MCHC 31.8 L (32.0-37.0) g/dL Assessment and Plan Assessment: COVID-19 pneumonia Acute hypoxic respiratory failure due to COVID-19 pneumonia History of chronic intermittent asthma but it appears to have acute exacerbation post covert TIA by history Remote History of DVT Plan: Patient has passed the window of REMdesivir and antibody therapy, patient has been started on IV steroids Will order inflammatory panel and also d-dimer DVT prophylaxis/anticoagulation with Lovenox Patient refused bronchodilator Continue Singulair Continue home medications Follow clinical response of the therapy closely Time with Patient: Greater than 30
[2021-10-15] MEDS: ENOXAPARIN 30 MG/0.3 ML SYRINGE SQ SCH (10:57)
[2021-10-15 10:59] LABS: C Reactive Protein 2.6 mg/dL (<1.0)
[2021-10-15 13:02] LABS: African American GFR (CKD) 96.2 (60.0-200.0); Albumin 3.1 g/dL (3.8-4.9); Albumin/Globulin Ratio 1.29 (1.60-3.17); Anion Gap 11.1 mmol/L (4.00-12.00); Blood Urea Nitrogen 9.8 mg/dL (9.0-27.0); Calcium 8.3 mg/dL (8.7-10.3); Carbon Dioxide 23.9 mmol/L (21.6-31.8); Globulin 2.4 g/dL (1.6-3.3); Potassium 3.6 mmol/L (3.5-5.5); Total Bilirubin 0.3 mg/dL (0.30-1.20); Total Protein 5.5 g/dL (6.2-8.2)
[2021-10-15] MEDS: CITALOPRAM HYDROBROMIDE 20 MG TAB PO SCH (21:28)
[2021-10-15] MEDS: ACETAMINOPHEN TAB 325 MG TAB PO PRN (21:37)
[2021-10-16] MEDS: SODIUM CHLORIDE 0.9% 1,000 ML IV SCH ×2 (00:31→19:36)
[2021-10-16] MEDS: methylPREDNISolone SOD SUCCI 125 MG/2 ML VIAL IV SCH ×3 (00:31→17:18)
[2021-10-16] MEDS: CLOPIDOGREL 75 MG TAB PO SCH (08:45)
[2021-10-16] MEDS: PANTOPRAZOLE 40 MG TABLET PO SCH ×2 (08:45→17:18)
[2021-10-16] MEDS: ASCORBIC ACID 500 MG TAB PO SCH (08:45)
[2021-10-16] MEDS: amLODIPine 5 MG TAB PO SCH (08:45)
[2021-10-16] MEDS: ENOXAPARIN 30 MG/0.3 ML SYRINGE SQ SCH (08:46)
[2021-10-16] MEDS: ZINC SULFATE 220 MG CAP PO SCH (08:46)
[2021-10-16] MEDS: OXYBUTYNIN XL 5 MG TAB.ER.24 PO SCH (08:46)
--- NOTE | 2021-10-16 08:49 | P.PN ---
Subjective Principal diagnosis: This is a 68-year-old white female essentially admitted for: Pneumonia. Pulse ox is still dropping on room air to 83%. No significant nausea or vomiting. She's not having issues tolerating diet no voiding difficulties. Weakness is stated The patient states that she has enough weakness where she would have difficulty completing the minimal ADLs at home. The patient otherwise is having saturations drop below normal when ambulating. Objective - Vital Signs Vital signs: Vital Signs Temp 97.6 F 10/16/21 07:52 Pulse 72 10/16/21 07:52 Resp 18 10/16/21 07:52 BP 136/74 10/16/21 07:52 Pulse Ox 90 L 10/16/21 07:52 Intake & Output 10/15/21 10/16/21 10/16/21 18:59 06:59 18:59 Intake Total 236 180 Output Total 0 Balance 236 180 Intake: Oral 236 180 Output: Emesis 0 Other: Voiding Method Toilet Diaper - Constitutional General appearance: Present: obese - EENT Eyes: Absent: abnormal pupil - Neck Neck: Present: normal ROM. Absent: lymphadenopathy - Respiratory Respiratory: bilateral: diminished - Cardiovascular Rhythm: regular Heart sounds: normal: S1, S2 Abnormal Heart Sounds: Absent: S3 Gallop - Gastrointestinal General gastrointestinal: Present: soft. Absent: tenderness - Neurologic Neurologic: Present: CNII-XII intact - Musculoskeletal Musculoskeletal: Present: generalized weakness - Labs CBC & Chem 7: 10/15/21 06:12 10/15/21 06:12 Labs: Abnormal Lab Results - Last 24 Hours (Table) 10/15/21 10/15/21 10/15/21 Range/Units 06:12 06:12 10:05 MCHC 31.8 L (32.0-37.0) g/dL D-Dimer (<0.60) mg/L FEU Glucose 161 H (70-110) mg/dL Plasma Lactic Acid Olvin 2.7 H* (0.7-2.0) mmol/L Calcium 8.3 L (8.7-10.3) mg/dL Ferritin (10.0-291.0) ng/mL C-Reactive Protein (<1.0) mg/dL Total Protein 5.5 L (6.2-8.2) g/dL Albumin 3.1 L (3.8-4.9) g/dL Albumin/Globulin Ratio 1.29 L (1.60-3.17) g/dL 10/15/21 10/15/21 Range/Units 10:33 10:34 MCHC (32.0-37.0) g/dL D-Dimer 0.76 H (<0.60) mg/L FEU Glucose (70-110) mg/dL Plasma Lactic Acid Olvin (0.7-2.0) mmol/L Calcium (8.7-10.3) mg/dL Ferritin 503.0 H (10.0-291.0) ng/mL C-Reactive Protein 2.6 H (<1.0) mg/dL Total Protein (6.2-8.2) g/dL Albumin (3.8-4.9) g/dL Albumin/Globulin Ratio (1.60-3.17) g/dL Assessment and Plan (1) Pneumonia due to COVID-19 virus Current Visit: Yes Status: Acute Code(s): U07.1 - COVID-19; J12.82 - PNEUMON IA DUE TO CORONAVIRUS DISEASE 2018 SNOMED Code(s): 366019054533562506 (2) Asthma Current Visit: No Status: Acute Code(s): J45.909 - UNSPECIFIED ASTHMA, UNCOMPLICATED SNOMED Code(s): 357040981 (3) History of DVT (deep vein thrombosis) Current Visit: No Status: Acute Code(s): Z86.718 - PERSONAL HISTORY OF OTHER VENOUS THROMBOSIS AND EMBOLISM SNOMED Code(s): 433284793 (4) Hypertension Current Visit: No Status: Acute Code(s): I10 - ESSENTIAL (PRIMARY) HYPERTENSION SNOMED Code(s): 49703759 Plan: Antibody infusion given. Reconcile home medications. Check CBC and CMP in a.m. Continue to follow, trajectory of recovery is improving.
[2021-10-16 09:17] LABS: HCT 36.3 % (37.2-46.3); HGB 11.4 g/dL (12.0-15.0); MCH 28.9 pg (27.0-32.0); MCHC 31.4 g/dL (32.0-37.0); MCV 91.9 fL (80.0-97.0); Mean Platelet Volume 11.8 fL (9.5-12.2); Platelet Count 233 X 10*3/uL (140-440); RBC 3.95 X 10*6/uL (4.10-5.20); RDW 12.1 % (11.5-14.5); WBC 9.72 X 10*3/uL (4.50-10.00)
[2021-10-16 13:22] LABS: ALT 10 U/L (8-44); AST 16 U/L (13-35); African American GFR (CKD) 97.1 (60.0-200.0); Albumin 2.9 g/dL (3.8-4.9); Albumin/Globulin Ratio 1.35 (1.60-3.17); Alkaline Phosphatase 71 U/L (41-126); BUN/Creat Ratio 18.68 Ratio (12.00-20.00); Blood Urea Nitrogen 12.7 mg/dL (9.0-27.0); Calcium 8.4 mg/dL (8.7-10.3); Carbon Dioxide 24.8 mmol/L (21.6-31.8); Chloride 105 mmol/L (96-109); Globulin 2.2 g/dL (1.6-3.3); Glucose 149 mg/dL (70-110); Non-African American GFR(CKD) 83.8 (60.0-200.0); Potassium 3.7 mmol/L (3.5-5.5); Sodium 140 mmol/L (135-145); Total Bilirubin <0.20 mg/dL (0.30-1.20); Total Protein 5.1 g/dL (6.2-8.2)
--- NOTE | 2021-10-16 16:12 | P.PN ---
Subjective Progress Note Date: 10/16/21 Principal diagnosis: COVID-19 pneumonia Acute hypoxic respiratory failure due to COVID-19 pneumonia History of chronic intermittent asthma but it appears to have acute exacerbation post covert TIA by history Remote History of DVT 10/16/2021, patient seen eval reexamined still short of breath somewhat abscesses with multiple illnesses in the immediate family, and cough is slightly better wheezing is better, 10/15/2021, patient seen eval examined follow-up for asthma exacerbation COVID- 19 pneumonia, patient remains on IV steroids feels slightly better appetite has improved, but still complaining of severe generalized weakness, denies any chest pain, no fever or chills, computed tomography scan of the chest reviewed positive bilateral infiltrate noted however no pulmonary embolism Patient is a 76-year-old morbidly obese nonsmoker start not feeling well aches pains shortness of breath for 2 weeks with intermittent cough, symptoms were consistent, she has a history of mild intermittent asthma, she has exposure to several sick contacts, presented to emergency department with above symptoms labs reviewed CBC within normal limit, she had a computed tomography scan done in the emergency department significant for bilateral patchy multifocal infiltrate consistent with the COVID-19 pneumonia admitted into the hospital and services Dr. Rey she still feel congested and short of breath but feels that severity or shortness of breath improved, she is on 2 L oxygen currently, Past medical history significant for mild intermittent asthma, CVA, DVT, GERD, hypertension hypertensive cardiovascular disease, Past surgical history significant for a venous stripping varicose veins, left- sided carpal tunnel surgery Objective - Vital Signs Vital signs: Vital Signs Temp 97.6 F 10/16/21 14:00 Pulse 65 10/16/21 14:00 Resp 17 10/16/21 14:00 BP 138/71 10/16/21 14:00 Pulse Ox 91 L 10/16/21 15:13 Intake & Output 10/15/21 10/16/21 10/16/21 18:59 06:59 18:59 Intake Total 236 180 236 Output Total 0 Balance 236 180 236 Intake: Oral 236 180 236 Output: Emesis 0 Other: Voiding Method Toilet Diaper - Exam - Constitutional General appearance: disheveled, morbidly obese, no acute distress - EENT Eyes: EOMI, PERRLA Ears: bilateral: normal - Neck Neck: normal ROM Carotids: bilateral: upstroke normal Thyroid: bilateral: normal size - Respiratory Respiratory: bilateral: wheezing - Cardiovascular Rhythm: regular Heart sounds: normal: S1, S2 - Gastrointestinal General gastrointestinal: normal bowel sounds - Integumentary Integumentary: decreased turgor, normal turgor - Neurologic Neurologic: CNII-XII intact - Musculoskeletal Musculoskeletal: gait normal, generalized weakness, strength equal bilaterally - Psychiatric Psychiatric: A&O x's 3, appropriate affect, intact judgment & insight - Labs CBC & Chem 7: 10/16/21 06:17 10/16/21 06:17 Labs: Abnormal Lab Results - Last 24 Hours (Table) 10/15/21 10/16/21 10/16/21 Range/Units 10:33 06:17 06:17 RBC 3.95 L (4.10-5.20) X 10*6/uL Hgb 11.4 L (12.0-15.0) g/dL Hct 36.3 L (37.2-46.3) % MCHC 31.4 L (32.0-37.0) g/dL Glucose 149 H (70-110) mg/dL Calcium 8.4 L (8.7-10.3) mg/dL Ferritin 503.0 H (10.0-291.0) ng/mL Total Bilirubin <0.20 L (0.30-1.20) mg/dL Total Protein 5.1 L (6.2-8.2) g/dL Albumin 2.9 L (3.8-4.9) g/dL Albumin/Globulin Ratio 1.35 L (1.60-3.17) g/dL Microbiology - Last 24 Hours (Table) 10/15/21 10:05 Blood Culture - Preliminary Blood No Growth after 24 hours Assessment and Plan Assessment: COVID-19 pneumonia Acute hypoxic respiratory failure due to COVID-19 pneumonia History of chronic intermittent asthma but it appears to have acute exacerbation post covert TIA by history Remote History of DVT Plan: Patient has passed the window of REMdesivir and antibody therapy, patient has been started on IV steroids Will order inflammatory panel and also d-dimer DVT prophylaxis/anticoagulation with Lovenox Patient refused bronchodilator Continue Singulair Continue home medications Follow clinical response of the therapy closely
[2021-10-16] MEDS: CITALOPRAM HYDROBROMIDE 20 MG TAB PO SCH (20:21)
[2021-10-16] MEDS: ACETAMINOPHEN TAB 325 MG TAB PO PRN (20:23)
[2021-10-17] MEDS: methylPREDNISolone SOD SUCCI 125 MG/2 ML VIAL IV SCH ×4 (00:56→23:15)
[2021-10-17 09:00] LABS: HCT 36.7 % (37.2-46.3); HGB 11.5 g/dL (12.0-15.0); MCH 28.8 pg (27.0-32.0); MCHC 31.3 g/dL (32.0-37.0); Mean Platelet Volume 11.4 fL (9.5-12.2); Platelet Count 254 X 10*3/uL (140-440); RBC 3.99 X 10*6/uL (4.10-5.20); RDW 11.9 % (11.5-14.5); WBC 7.69 X 10*3/uL (4.50-10.00)
[2021-10-17 09:06] LABS: African American GFR (CKD) 100.9 (60.0-200.0); Albumin 2.9 g/dL (3.8-4.9); Albumin/Globulin Ratio 1.36 (1.60-3.17); Anion Gap 10.7 mmol/L (4.00-12.00); BUN/Creat Ratio 22.11 Ratio (12.00-20.00); Blood Urea Nitrogen 13.4 mg/dL (9.0-27.0); Calcium 8.2 mg/dL (8.7-10.3); Carbon Dioxide 24.3 mmol/L (21.6-31.8); Globulin 2.1 g/dL (1.6-3.3); Potassium 3.7 mmol/L (3.5-5.5); Total Bilirubin 0.2 mg/dL (0.30-1.20)
[2021-10-17] MEDS: ASCORBIC ACID 500 MG TAB PO SCH (09:23)
[2021-10-17] MEDS: CLOPIDOGREL 75 MG TAB PO SCH (09:23)
[2021-10-17] MEDS: PANTOPRAZOLE 40 MG TABLET PO SCH ×2 (09:23→17:39)
[2021-10-17] MEDS: amLODIPine 5 MG TAB PO SCH (09:23)
[2021-10-17] MEDS: OXYBUTYNIN XL 5 MG TAB.ER.24 PO SCH (09:24)
[2021-10-17] MEDS: ZINC SULFATE 220 MG CAP PO SCH (09:25)
[2021-10-17] MEDS: ENOXAPARIN 30 MG/0.3 ML SYRINGE SQ SCH (09:25)
[2021-10-17] MEDS: SODIUM CHLORIDE 0.9% 1,000 ML IV SCH ×3 (09:29→20:48)
--- NOTE | 2021-10-17 12:14 | XR ---
EXAMINATION TYPE: XR chest 1V portable DATE OF EXAM: 10/17/2021 Comparison: 10/13/2021 Clinical History: 76-year-old female pneumonia Findings: Heart mildly enlarged. No focal right midlung, left midlung, and left basilar opacities. No pleural e ffusion. Impression: 1. Mild cardiomegaly. 2. New airspace disease in the bilateral mid lungs and left base. Correlate for multifocal pneumonia.
[2021-10-17] MEDS: CITALOPRAM HYDROBROMIDE 20 MG TAB PO SCH (20:48)
--- NOTE | 2021-10-17 21:17 | PN ---
PROGRESS NOTE DATE OF SERVICE: 10/17/2021 I am covering for Dr. Rey. This 76-year-old woman who was admitted with acute Covid 19 pneumonia and acute hypoxic respiratory being closely monitored. The patient is extremely weak. The patient is unable to ambulate without much support. The patient is afraid of falls at this time. Chest x-ray which I reviewed personally showed bilateral interstitial pneumonia at this time. Lab-barrera, hemoglobin 7.5. The patient had some elevations inflammatory markers of Covid 19. PAST MEDICAL HISTORY: Reviewed. REVIEW OF SYSTEMS: CARDIOVASCULAR system: No angina or palpitations. RESPIRATORY: As mentioned earlier. GI no nausea or vomiting. no dysuria. Nervous system: No numbness. Generalized weakness. CURRENT MEDICATIONS: Tylenol. Xanax, Norvasc, vitamin C, Celebrex, Plavix, Lovenox. Doses and other medication reviewed. PHYSICAL EXAMINATION: Alert and oriented times three. Pulse 70. Blood pressure 165/70, respiration 18, temperature 97.8, pulse ox 98% on 2 L. HEENT: Conjunctivae normal. NECK: No JVD. RESPIRATION: Breath sounds diminished in the bases. Few scattered rhonchi. ABDOMEN: Soft. Obese. LEGS are no edema. No swelling. Nervous system: Diffusely weak. LABS: WBC 7, hemoglobin 7.4. ASSESSMENT: 1. Acute Covid 19 infection with acute bilateral aspiration pneumonia with acute hypoxic respiratory failure. 2. Gait dysfunction and high risk of falls. 3. History of intermittent asthma. 4. History of transient ischemic attack. 5. Remote history of deep vein thrombosis. 6. Anemia, normocytic anemia of chronic disease. 7. Hypoalbuminemia with mild protein-calorie malnutrition. 8. Severe morbid obesity, BMI of 32.6. 9. History of cerebrovascular accident/transient ischemic attack. 10.Deep vein thrombosis. 11.Hypertension. 12.History of gastroesophageal reflux disease. 13.History of hernia repair. 14.History of tonsillectomy. 15.History of anxiety. 16.FULL CODE. RECOMMENDATIONS AND DISCUSSION: This 76-year-old woman who presented with multiple complex medical issues, we will monitor the patient closely, continue the current medications, management and symptomatic treatment. Continue the IV steroids. Continue with the rest of the medications. PT/OT evaluation. Also recommend ECF rehab. Continue with Lovenox. Increase Lovenox dose to 40 and we will continue to monitor with Pulmonary. Prognosis guarded. Further recommendations to follow. MMODL / IJN: [id number] /
[2021-10-17] MEDS: ACETAMINOPHEN TAB 325 MG TAB PO PRN (23:15)
[2021-10-18] MEDS: ENOXAPARIN 40 MG/0.4 ML SYRINGE SQ SCH (08:50)
[2021-10-18] MEDS: PANTOPRAZOLE 40 MG TABLET PO SCH ×2 (08:50→16:15)
[2021-10-18] MEDS: methylPREDNISolone SOD SUCCI 125 MG/2 ML VIAL IV SCH ×2 (08:50→16:14)
[2021-10-18] MEDS: OXYBUTYNIN XL 5 MG TAB.ER.24 PO SCH (08:51)
[2021-10-18] MEDS: CLOPIDOGREL 75 MG TAB PO SCH (08:51)
[2021-10-18] MEDS: ZINC SULFATE 220 MG CAP PO SCH (08:51)
[2021-10-18] MEDS: amLODIPine 5 MG TAB PO SCH (08:51)
[2021-10-18] MEDS: ASCORBIC ACID 500 MG TAB PO SCH (08:51)
[2021-10-18] MEDS: SODIUM CHLORIDE 0.9% 1,000 ML IV SCH (11:27)
[2021-10-18 12:27] LABS: Basophils # (A) 0.02 X 10*3/uL (0.00-0.10); Basophils % (A) 0.3 %; Eosinophils # (A) 0 X 10*3/uL (0.04-0.35); Eosinophils % (A) 0 %; HCT 36.8 % (37.2-46.3); HGB 11.8 g/dL (12.0-15.0); Lymphocytes # (A) 0.97 X 10*3/uL (0.90-5.00); Lymphocytes % (A) 15.8 %; MCH 29.1 pg (27.0-32.0); MCHC 32.1 g/dL (32.0-37.0); MCV 90.9 fL (80.0-97.0); Mean Platelet Volume 11.2 fL (9.5-12.2); Monocytes # (A) 0.25 X 10*3/uL (0.20-1.00); Monocytes % (A) 4.1 %; Neutrophils # (A) 4.75 X 10*3/uL (1.80-7.70); Neutrophils % (A) 77.2 %; Platelet Count 280 X 10*3/uL (140-440); RBC 4.05 X 10*6/uL (4.10-5.20); WBC 6.15 X 10*3/uL (4.50-10.00)
[2021-10-18 13:06] LABS: African American GFR (CKD) 96.2 (60.0-200.0); Anion Gap 11.8 mmol/L (4.00-12.00); BUN/Creat Ratio 19.71 Ratio (12.00-20.00); Blood Urea Nitrogen 13.8 mg/dL (9.0-27.0); Calcium 8.3 mg/dL (8.7-10.3); Carbon Dioxide 25.2 mmol/L (21.6-31.8); Potassium 3.5 mmol/L (3.5-5.5)
--- NOTE | 2021-10-18 19:15 | PN ---
PROGRESS NOTE DATE OF SERVICE: 10/18/2021 I am covering for Dr. Rey. This 70-year-old woman was admitted with acute Covid 19 infection, had pneumonia and is being closely monitored. The patient complains of weakness yesterday but today the patient is feeling much better. The patient is able to ambulate herself. No chest pain. No palpitations. No fever. The most recent chest x-ray which was done and reviewed by me showed bilateral extensive pneumonia apparently secondary to Covid 19 pneumonia. No chest pain. No palpitations. No fever. PHYSICAL EXAMINATION: Alert and oriented x3. Pulse 77. Blood pressure 151/81, respiration 18, temperature 97.6, pulse ox 90% on room air. HEENT: Conjunctivae normal. Neck: No JVD. Cardiovascular: S1, S2 muffled. Respiratory: Breath sounds diminished in the bases. A few scattered rhonchi and crackles. Abdomen: Soft. Nontender. Nervous system: No focal deficits. LABS: WBC 6.2, hemoglobin 11.8. Labs are reviewed. ASSESSMENT: 1. Acute Covid 19 infection with acute bilateral interstitial pneumonia with acute hypoxic respiratory failure. 2. Gait dysfunction. 3. History of intermittent asthma. 4. History of transient ischemic attack. 5. Remote history of deep vein thrombosis. 6. Anemia, normocytic anemia of chronic disease. 7. Hypoalbuminemia with mild protein-calorie malnutrition. 8. Severe morbid obesity, BMI of 38.6. 9. History of cerebrovascular accident, transient ischemic attack. 10.History of deep vein thrombosis. 11.Hypertension. 12.History of gastroesophageal reflux disease. 13.History of hernia repair. 14.History of tonsillectomy. 15.History of anxiety. 16.FULL CODE. RECOMMENDATION AND DISCUSSION: Continue current medications, management and symptomatic treatment. Bronchodilators. Continue rest of medications and the patient would like to go home at this point. Dr. Rey will follow tomorrow. Further recommendations to follow then. MMODL / IJN: [id number] /
[2021-10-18] MEDS: CITALOPRAM HYDROBROMIDE 20 MG TAB PO SCH (20:20)
[2021-10-19] MEDS: SODIUM CHLORIDE 0.9% 1,000 ML IV SCH (00:18)
[2021-10-19] MEDS: methylPREDNISolone SOD SUCCI 125 MG/2 ML VIAL IV SCH ×2 (00:54→07:56)
[2021-10-19] MEDS: ACETAMINOPHEN TAB 325 MG TAB PO PRN (00:54)
[2021-10-19 07:47] VITALS: BP 156/73; PULSE 67; TEMP 97.4
[2021-10-19] MEDS: CLOPIDOGREL 75 MG TAB PO SCH (07:56)
[2021-10-19] MEDS: ZINC SULFATE 220 MG CAP PO SCH (07:56)
[2021-10-19] MEDS: OXYBUTYNIN XL 5 MG TAB.ER.24 PO SCH (07:57)
[2021-10-19] MEDS: PANTOPRAZOLE 40 MG TABLET PO SCH (07:57)
[2021-10-19] MEDS: amLODIPine 5 MG TAB PO SCH (07:57)
[2021-10-19] MEDS: ASCORBIC ACID 500 MG TAB PO SCH (07:57)
[2021-10-19] MEDS: ENOXAPARIN 40 MG/0.4 ML SYRINGE SQ SCH (07:57)
--- NOTE | 2021-10-19 08:31 | P.DS ---
Providers Date of admission: 10/15/21 09:50 Attending physician: Anmol Jones Consults: 10/14/21 08:10 Consult Physician Routine Consulting Provider: Abad Salas Consult Reason/Comments: Covid pneumonia Do you want consulting provider notified?: Yes Primary care physician: Anmol Jones - Discharge Diagnosis(es) (1) Pneumonia due to COVID-19 virus Current Visit: Yes Status: Acute (2) Asthma Current Visit: No Status: Acute (3) History of DVT (deep vein thrombosis) Current Visit: No Status: Acute (4) Hypertension Current Visit: No Status: Acute Hospital Course: This is a continuing discharge summary on a 76-year-old white female essentially admitted for bilateral pelvic pneumonia. The patient was stabilized with antibiotic infusion and started on appropriate steroid treatment. She was ashen dependent until 24 hours prior to discharge. She will be discharged in stable condition to follow-up with me in about 7-10 days Patient Condition at Discharge: Stable Plan - Discharge Summary New Discharge Prescriptions: New Dexamethasone [Decadron] 6 mg PO DAILY #6 tablet Zinc Sulfate [Orazinc] 220 mg PO DAILY #20 cap Acetaminophen Tab [Tylenol] 650 mg PO Q6HR PRN tab PRN Reason: Mild Pain Or Fever > 100.5 Ascorbic Acid [Vitamin C] 500 mg PO DAILY #20 tab Continue ALPRAZolam [Xanax] 0.25 mg PO TID PRN PRN Reason: Anxiety Clopidogrel [Plavix] 75 mg PO DAILY Omeprazole 40 mg PO BID Citalopram Hydrobromide [CeleXA] 20 mg PO HS Tolterodine Tartrate [Tolterodine Tartrate ER] 4 mg PO DAILY Montelukast Sodium [Singulair] 10 mg PO DAILY PRN PRN Reason: Allergy Symptoms rOPINIRole HCL [Requip] 0.5 mg PO HS Albuterol Sulfate [Proventil Hfa] 1 puff INHALATION RT-Q6H PRN PRN Reason: Shortness Of Breath amLODIPine [Norvasc] 5 mg PO DAILY Discharge Medication List ALPRAZolam [Xanax] 0.25 mg PO TID PRN 07/14/16 [History] Clopidogrel [Plavix] 75 mg PO DAILY 07/14/16 [History] Citalopram Hydrobromide [CeleXA] 20 mg PO HS 08/17/18 [History] Omeprazole 40 mg PO BID 08/17/18 [History] Albuterol Sulfate [Proventil Hfa] 1 puff INHALATION RT-Q6H PRN 10/13/21 [History] Montelukast Sodium [Singulair] 10 mg PO DAILY PRN 10/13/21 [History] Tolterodine Tartrate [Tolterodine Tartrate ER] 4 mg PO DAILY 10/13/21 [History] amLODIPine [Norvasc] 5 mg PO DAILY 10/13/21 [History] rOPINIRole HCL [Requip] 0.5 mg PO HS 10/13/21 [History] Acetaminophen Tab [Tylenol] 650 mg PO Q6HR PRN tab 10/17/21 [Rx] Ascorbic Acid [Vitamin C] 500 mg PO DAILY #20 tab 10/17/21 [Rx] Dexamethasone [Decadron] 6 mg PO DAILY #6 tablet 10/17/21 [Rx] Zinc Sulfate [Orazinc] 220 mg PO DAILY #20 cap 10/17/21 [Rx] Follow up Appointment(s)/Referral(s): Etelvina Pedro [NON-STAFF] - 1-2 Days Anmol Jones MD [Primary Care Provider] - 1 Week Ambulatory/Diagnostic Orders: Complete Blood Count w/diff [LAB.AMB] Location: None Selected Activity/Diet/Wound Care/Special Instructions: diet cardiac.. Activity Limited follow-up Arrange follow-up with dr jones and pulmonology Arrange home O2 Discharge Disposition: HOME SELF-CARE
[2021-10-19 09:06] VITALS: RESP 18
== END 2021-10-19 09:55 | disposition home health service (06) | DRG 177 ==
LOC: EC 18:23 → 4SSUR 22:42 → 1SOBS 10-14 04:08 → 6NMEDSUR 10-14 16:27 → OBSVTOIN 10-15 09:50 → 6NMEDSUR 10-15 21:39
PROVIDERS: ADMIT Family Medicine; ATTEND Family Medicine
DX: U07.1 COVID-19 (principal); J12.82 Pneumonia due to coronavirus disease 2019; J96.01 Acute respiratory failure with hypoxia; E44.1 Mild protein-calorie malnutrition; J45.21 Mild intermittent asthma with (acute) exacerbation; G25.81 Restless legs syndrome; D63.8 Anemia in other chronic diseases classified elsewhere; E66.01 Morbid (severe) obesity due to excess calories; F41.9 Anxiety disorder, unspecified; I10 Essential (primary) hypertension; Z68.38 Body mass index [BMI] 38.0-38.9, adult; Z79.02 Long term (current) use of antithrombotics/antiplatelets; Z79.899 Other long term (current) drug therapy; Z86.718 Personal history of other venous thrombosis and embolism; Z86.73 Personal history of transient ischemic attack (TIA), and cerebral infarction without residual deficits; Z91.81 History of falling; Z87.19 Personal history of other diseases of the digestive system; Z88.8 Allergy status to other drugs, medicaments and biological substances; Z98.51 Tubal ligation status
CPT/HCPCS: 36415; 71045; 71275; 80048; 80053; 82728; 83605; 83735; 83880; 84484; 85025; 85027; 85379; 85610; 85730; 86140; 87040; 87635; 93005; 94760; 96374; 99285

== ENCOUNTER → 2022-09-13 | Outpatient (CLI) | payer MEDICARE ==
--- NOTE | 2022-09-13 14:02 | XR ---
EXAMINATION TYPE: XR chest 2V DATE OF EXAM: 09/13/2022 11:25 AM COMPARISON: Chest radiographs from 03/03/2022. TECHNIQUE: XR chest 2V Frontal and lateral views of the chest. CLINICAL INDICATION:Female, 77 years old with history of R05.9 Cough; FINDINGS: Lungs/Pleura: There is no evidence of pleural effusion or pneumothorax. Similar right suprahilar left infrahilar prominent lung markings. No new focal consolidation. Pulmonary vascularity: Unremarkable. Heart/mediastinum: Cardiomediastinal silhouette is unremarkable. Musculoskeletal: No acute osseous pathology. Degenerative changes of the visualized spine. IMPRESSION: No acute cardiopulmonary disease/process. No significant change from prior examination.
== END | disposition home or self-care (01) ==
LOC: RADXRMAIN 11:08
PROVIDERS: ATTEND Family Medicine
DX: R05.9 Cough, unspecified (principal)
CPT/HCPCS: 71046

== ENCOUNTER → 2022-10-25 | Outpatient (CLI) | payer MEDICARE ==
--- NOTE | 2022-10-26 12:46 | XR ---
EXAMINATION TYPE: XR chest 2V DATE OF EXAM: 10/25/2022 COMPARISON: Chest x-ray September 13, 2022 HISTORY: Cough. TECHNIQUE: Frontal and lateral views of the chest are obtained. FINDINGS: There is chronic parenchymal change bilaterally redemonstrated without suspicious focal ai r space opacity, pleural effusion, or pneumothorax seen. The cardiac silhouette size is stable and u pper limits of normal with atherosclerotic thoracic aorta redemonstrated. The osseous structures re main demineralized. Underlying scoliosis redemonstrated. IMPRESSION: Chronic changes without new acute pulmonary process.
== END | disposition home or self-care (01) ==
LOC: RADXRMAIN 15:49
PROVIDERS: ATTEND Family Medicine
DX: J98.4 Other disorders of lung (principal); R05.9 Cough, unspecified
CPT/HCPCS: 71046

== ENCOUNTER 2022-11-17 17:17 | Inpatient (IN) | payer MEDICARE ==
[2022-11-17] MEDS ORDERED: PANTOPRAZOLE 40 MG/10 ML VIAL IVP STA (18:09)
--- NOTE | 2022-11-17 18:38 | ED ---
General Adult HPI - General Chief complaint: Recheck/Abnormal Lab/Rx Stated complaint: air in abd sent from dr office Time Seen by Provider: 11/17/22 18:09 Source: patient, RN notes reviewed, old records reviewed (Computed tomography scan revealed from outpatient earlier today) Mode of arrival: ambulatory Limitations: no limitations - History of Present Illness Initial comments: Patient is a pleasant 77-year-old female presenting to the reported abnormal computed tomography scan. Computed tomography scan was done today as a routine monitoring for aneurysm. Patient denies any abdominal discomfort. When further questioned patient states there has been some mild epigastric discomfort for the past approximately 13 months since she had COVID-19 infection. Patient states this is no worse or different than normal. Patient has no complaints at this time. No fever. No nausea vomiting. No chest pain. - Related Data Home Medications Medication Instructions Recorded Confirmed ALPRAZolam [Xanax] 0.25 mg PO TID PRN 07/14/16 10/13/21 Clopidogrel [Plavix] 75 mg PO DAILY 07/14/16 10/13/21 Citalopram Hydrobromide [CeleXA] 20 mg PO HS 08/17/18 10/13/21 Omeprazole 40 mg PO BID 08/17/18 10/13/21 Albuterol Sulfate [Proventil Hfa] 1 puff INHALATION RT-Q6H PRN 10/13/21 10/13/21 Montelukast Sodium [Singulair] 10 mg PO DAILY PRN 10/13/21 10/13/21 Tolterodine Tartrate [Tolterodine 4 mg PO DAILY 10/13/21 10/13/21 Tartrate ER] amLODIPine [Norvasc] 5 mg PO DAILY 10/13/21 10/13/21 rOPINIRole HCL [Requip] 0.5 mg PO HS 10/13/21 10/13/21 Previous Rx's Medication Instructions Recorded Acetaminophen Tab [Tylenol] 650 mg PO Q6HR PRN tab 10/17/21 Ascorbic Acid [Vitamin C] 500 mg PO DAILY #20 tab 10/17/21 Zinc Sulfate [Orazinc] 220 mg PO DAILY #20 cap 10/17/21 dexAMETHasone [Decadron] 6 mg PO DAILY #6 tablet 10/17/21 Allergies Allergy/AdvReac Type Severity Reaction Status Date / Time albuterol Allergy Severe Rapid Verified 11/17/22 17:50 Heart Rate,see comment Review of Systems ROS Statement: Those systems with pertinent positive or pertinent negative responses have been documented in the HPI. ROS Other: All systems not noted in ROS Statement are negative. Constitutional: Denies: fever Eyes: Denies: eye pain ENT: Denies: ear pain Respiratory: Denies: cough Cardiovascular: Denies: chest pain Endocrine: Denies: fatigue Gastrointestinal: Denies: abdominal pain Genitourinary: Denies: dysuria Musculoskeletal: Denies: back pain Skin: Denies: rash Neurological: Denies: weakness Past Medical History Past Medical History: Asthma, CVA/TIA, Deep Vein Thrombosis (DVT), GERD/Reflux, Hypertension Additional Past Medical History / Comment(s): "mini stroke-no residual",urinary leakage, restless leg syndrome, "thickening in left lung per recent scan", states upset stomach most, "lung aneurysm", States Hx of Rheumatic Fever, Measles x5 and several occurances of Mumps when she was a child,varicose veins History of Any Multi-Drug Resistant Organisms: None Reported Past Surgical History: Hernia Repair, Tonsillectomy, Tubal Ligation Additional Past Surgical History / Comment(s): vein stripping left leg,left carpel tunnel Past Anesthesia/Blood Transfusion Reactions: No Reported Reaction, Motion Sickness Additional Past Anesthesia/Blood Transfusion Reaction / Comment(s): no hx blood transfusion Past Psychological History: Anxiety Smoking Status: Never smoker Past Alcohol Use History: None Reported Past Drug Use History: None Reported - Past Family History Mother Family Medical History: Cancer Additional Family Medical History / Comment(s): Lung cancer Father Family Medical History: Hypertension General Exam Limitations: no limitations General appearance: alert, in no apparent distress Head exam: Present: normocephalic Eye exam: Present: normal appearance Neck exam: Present: normal inspection Respiratory exam: Present: normal lung sounds bilaterally Cardiovascular Exam: Present: regular rate, normal rhythm GI/Abdominal exam: Present: soft, tenderness (Minimal epigastric which patient claims is a chronic condition for her symptoms she had COVID-19 in September of last year), normal bowel sounds. Absent: distended, guarding, rebound, rigid, pulsatile mass Extremities exam: Present: normal inspection Neurological exam: Present: alert Psychiatric exam: Present: normal affect, normal mood Skin exam: Present: normal color Course Vital Signs 11/17/22 17:46 Temperature 97.9 F Pulse Rate 85 Respiratory 16 Rate Blood Pressure 129/76 O2 Sat by Pulse 95 Oximetry EKG Findings - EKG Results: EKG: interpreted by ERMD (Left axis. LVH criteria. PVC present.), sinus rhythm, normal ST/T Medical Decision Making - Medical Decision Making Patient reevaluated and remains resting comfortably in bed, symptomatic free. Patient updated on results and plan. Case was discussed in detail with Dr. Ryan who does want patient to be treated medically at this point. She recommends nothing by mouth except ice chips, antibiotics and Protonix. She will consult. - Lab Data Result diagrams: 11/17/22 18:09 11/17/22 18:09 Lab Results 11/17/22 11/17/22 11/17/22 Range/Units 18:09 18:09 18:09 WBC 12.4 H (3.8-10.6) k/uL RBC 4.42 (3.80-5.40) m/uL Hgb 13.2 (11.4-16.0) gm/dL Hct 39.3 (34.0-46.0) % MCV 89.1 (80.0-100.0) fL MCH 29.8 (25.0-35.0) pg MCHC 33.4 (31.0-37.0) g/dL RDW 13.4 (11.5-15.5) % Plt Count 267 (150-450) k/uL MPV 9.0 Neutrophils % 57 % Lymphocytes % 35 % Monocytes % 4 % Eosinophils % 2 % Basophils % 1 % Neutrophils # 7.0 (1.3-7.7) k/uL Lymphocytes # 4.3 (1.0-4.8) k/uL Monocytes # 0.6 (0-1.0) k/uL Eosinophils # 0.2 (0-0.7) k/uL Basophils # 0.1 (0-0.2) k/uL PT 9.9 (9.0-12.0) sec INR 0.9 (<1.2) APTT 22.5 (22.0-30.0) sec Sodium 137 (137-145) mmol/L Potassium 4.0 (3.5-5.1) mmol/L Chloride 105 (98-107) mmol/L Carbon Dioxide 25 (22-30) mmol/L Anion Gap 7 mmol/L BUN 13 (7-17) mg/dL Creatinine 0.92 (0.52-1.04) mg/dL Est GFR (CKD-EPI)AfAm 69 (>60 ml/min/1.73 sqM) Est GFR (CKD-EPI)NonAf 60 (>60 ml/min/1.73 sqM) Glucose 104 H (74-99) mg/dL Plasma Lactic Acid Olvin (0.7-2.0) mmol/L Calcium 8.7 (8.4-10.2) mg/dL Total Bilirubin 0.5 (0.2-1.3) mg/dL AST 18 (14-36) U/L ALT 12 (4-34) U/L Alkaline Phosphatase 119 (38-126) U/L Total Protein 6.4 (6.3-8.2) g/dL Albumin 3.6 (3.5-5.0) g/dL Amylase 32 (30-110) U/L Lipase 63 (23-300) U/L 11/17/22 Range/Units 18:09 WBC (3.8-10.6) k/uL RBC (3.80-5.40) m/uL Hgb (11.4-16.0) gm/dL Hct (34.0-46.0) % MCV (80.0-100.0) fL MCH (25.0-35.0) pg MCHC (31.0-37.0) g/dL RDW (11.5-15.5) % Plt Count (150-450) k/uL MPV Neutrophils % % Lymphocytes % % Monocytes % % Eosinophils % % Basophils % % Neutrophils # (1.3-7.7) k/uL Lymphocytes # (1.0-4.8) k/uL Monocytes # (0-1.0) k/uL Eosinophils # (0-0.7) k/uL Basophils # (0-0.2) k/uL PT (9.0-12.0) sec INR (<1.2) APTT (22.0-30.0) sec Sodium (137-145) mmol/L Potassium (3.5-5.1) mmol/L Chloride (98-107) mmol/L Carbon Dioxide (22-30) mmol/L Anion Gap mmol/L BUN (7-17) mg/dL Creatinine (0.52-1.04) mg/dL Est GFR (CKD-EPI)AfAm (>60 ml/min/1.73 sqM) Est GFR (CKD-EPI)NonAf (>60 ml/min/1.73 sqM) Glucose (74-99) mg/dL Plasma Lactic Acid Olvin 1.5 (0.7-2.0) mmol/L Calcium (8.4-10.2) mg/dL Total Bilirubin (0.2-1.3) mg/dL AST (14-36) U/L ALT (4-34) U/L Alkaline Phosphatase (38-126) U/L Total Protein (6.3-8.2) g/dL Albumin (3.5-5.0) g/dL Amylase (30-110) U/L Lipase (23-300) U/L - Radiology Data Radiology results: report reviewed Interpreted by me: Chest and abdominal x-ray do show concern for air under the diaphragm. Disposition Clinical Impression: Pneumoperitoneum Disposition: ADMITTED IP TO THIS HOSP Is patient prescribed a controlled substance at d/c from ED?: No Referrals: Anmol Rey MD [Primary Care Provider] - 1-2 days Time of Disposition: 19:44
[2022-11-17 18:53] LABS: Basophils # (A) 0.1 k/uL (0-0.2); Basophils % (A) 1 %; Eosinophils # (A) 0.2 k/uL (0-0.7); Eosinophils % (A) 2 %; HCT 39.3 % (34.0-46.0); HGB 13.2 gm/dL (11.4-16.0); Lymphocytes # (A) 4.3 k/uL (1.0-4.8); Lymphocytes % (A) 35 %; MCH 29.8 pg (25.0-35.0); MCHC 33.4 g/dL (31.0-37.0); MCV 89.1 fL (80.0-100.0); Monocytes # (A) 0.6 k/uL (0-1.0); Monocytes % (A) 4 %; Neutrophils % (A) 57 %; Platelet Count 267 k/uL (150-450); RBC 4.42 m/uL (3.80-5.40); RDW 13.4 % (11.5-15.5); WBC 12.4 k/uL (3.8-10.6)
[2022-11-17 18:56] LABS: Albumin 3.6 g/dL (3.5-5.0); Calcium 8.7 mg/dL (8.4-10.2); Total Bilirubin 0.5 mg/dL (0.2-1.3); Total Protein 6.4 g/dL (6.3-8.2)
[2022-11-17 18:58] LABS: INR 0.9 (<1.2); Partial Thromboplastin Time 22.5 sec (22.0-30.0); Prothrombin Time 9.9 sec (9.0-12.0)
--- NOTE | 2022-11-17 19:02 | XR ---
EXAMINATION TYPE: XR chest 2V DATE OF EXAM: 11/17/2022 6:53 PM COMPARISON: CT 11/17/2022 TECHNIQUE: XR chest 2V Frontal and lateral views of the chest. CLINICAL INDICATION:Female, 77 years old with history of abdominal pain; FINDINGS: Lungs/Pleura: There is no evidence of pleural effusion, focal consolidation, or pneumothorax. Flatte roxanna of the diaphragm with increased lucency the lung apices.. Pulmonary vascularity: Unremarkable. Heart/mediastinum: Cardiomediastinal silhouette is unremarkable. Musculoskeletal: No acute osseous pathology. Other: There is free air under the diaphragm similar same day CT. IMPRESSION: 1. Free air under the diaphragm is again seen similar to same day 11/17/2022 CT. 2. COPD changes.
--- NOTE | 2022-11-17 19:10 | XR ---
EXAMINATION TYPE: XR abdomen 2V DATE OF EXAM: 11/17/2022 6:53 PM INDICATION: Patient age:Female; 77 years old; Reason for study: abdominal pain; COMPARISON: Same day CT TECHNIQUE: Two views of the abdomen were obtained. FINDINGS: There is free air under of the diaphragm seen on the right. The bowel gas pattern is nonspe cific without dilated loops of small or large bowel. There is no evidence for organomegaly. The osse ous structures are intact. No abnormal calcifications are present. Fecal material and gas are demons trated throughout the colon and rectum. Excreted IV contrast is seen within urinary bladder. IMPRESSION: Redemonstration of free air under the right diaphragm as seen on same day CT.
[2022-11-17] MEDS ORDERED: NALOXONE 0.4 MG/ML 1 ML VIAL IV PRN (19:48)
[2022-11-17 19:53] LABS: Appearance,Urine Clear (Clear); Bacteria,Urine Occasional /hpf; Bilirubin,Urine Negative (Negative); Blood,Urine Small (Negative); Color,Urine Yellow; Glucose,Urine (UA) Negative (Negative); Ketones,Urine Negative (Negative); Leukocyte Esterase,Urine Negative (Negative); Mucus,Urine Rare /hpf; Nitrite,Urine Positive (Negative); PH, Urine 5.5 (5.0-8.0); Protein,Urine Negative (Negative); RBC,Urine 4 /hpf (0-5); Squamous Epithelial Cell,Urine <1 /hpf (0-4)
[2022-11-17 19:55] LABS: Specific Gravity,Urine >1.050 (1.001-1.035)
[2022-11-17] MEDS: PIPERACILLIN-TAZOBACTAM 3.375 GM in SODIUM CHLORIDE 0.9% 100 ML IVPB SCH (20:24)
[2022-11-17] MEDS: SODIUM CHLORIDE 0.9% 1,000 ML IV SCH (20:24)
[2022-11-18] MEDS: PIPERACILLIN-TAZOBACTAM 3.375 GM in SODIUM CHLORIDE 0.9% 100 ML IVPB SCH ×2 (06:10→16:41)
[2022-11-18] MEDS: PANTOPRAZOLE 40 MG/10 ML VIAL IVP SCH (07:40)
[2022-11-18 08:56] LABS: HCT 44.1 % (37.2-46.3); HGB 13.3 g/dL (12.0-15.0); MCH 28.1 pg (27.0-32.0); MCHC 30.2 g/dL (32.0-37.0); NRBC Per 100 WBC 0 /100 WBCS (0.0-0.0); Platelet Count 311 X 10*3/uL (140-440); RBC 4.74 X 10*6/uL (4.10-5.20); RDW 13.3 % (11.5-14.5); WBC 13.09 X 10*3/uL (4.50-10.00)
--- NOTE | 2022-11-18 09:02 | P.HPIM ---
History of Present Illness H&P Date: 11/18/22 Chief Complaint: Abnormal CT, free air in abdomen This is a 77-year-old female who was admitted after an abnormal routine outpatient CT yesterday. Dr. Rey was called with the CT results which showed possible free air below the diaphragm. He then called the patient and told her to come in to the ER to be evaluated. Past medical history is extensive as noted below. Patient is seen resting comfortably in bed today. She remains nothing by mouth, but is allowed ice chips. Does admit to some left lower quadrant tenderness. Dr. Reyes has been consult. Review of Systems Constitutional: Denies chills, Denies fever Cardiovascular: Denies chest pain, Denies dyspnea on exertion Respiratory: Denies cough, Denies dyspnea Gastrointestinal: Denies abdominal pain, Denies nausea Musculoskeletal: Denies arm numbness/tingling, Denies leg numbness/tingling Past Medical History Past Medical History: Asthma, CVA/TIA, Deep Vein Thrombosis (DVT), GERD/Reflux, Hypertension Additional Past Medical History / Comment(s): "mini stroke-no residual",urinary leakage, restless leg syndrome, "thickening in left lung per recent scan", states upset stomach most, "lung aneurysm", States Hx of Rheumatic Fever, Measles x5 and several occurances of Mumps when she was a child,varicose veins History of Any Multi-Drug Resistant Organisms: None Reported Past Surgical History: Hernia Repair, Tonsillectomy, Tubal Ligation Additional Past Surgical History / Comment(s): vein stripping left leg,left carpel tunnel Past Anesthesia/Blood Transfusion Reactions: No Reported Reaction, Motion Sickness Additional Past Anesthesia/Blood Transfusion Reaction / Comment(s): no hx blood transfusion Past Psychological History: Anxiety Smoking Status: Never smoker Past Alcohol Use History: None Reported Past Drug Use History: None Reported - Past Family History Mother Family Medical History: Cancer Additional Family Medical History / Comment(s): Lung cancer Father Family Medical History: Hypertension Medications and Allergies Home Medications Medication Instructions Recorded Confirmed Type ALPRAZolam [Xanax] 0.25 mg PO BID 07/14/16 11/17/22 History Clopidogrel [Plavix] 75 mg PO DAILY 07/14/16 11/17/22 History Citalopram Hydrobromide [CeleXA] 20 mg PO HS 08/17/18 11/17/22 History Omeprazole 40 mg PO BID 08/17/18 11/17/22 History Montelukast Sodium [Singulair] 10 mg PO HS 10/13/21 11/17/22 History Tolterodine Tartrate [Tolterodine 4 mg PO DAILY 10/13/21 11/17/22 History Tartrate ER] amLODIPine [Norvasc] 5 mg PO DAILY 10/13/21 11/17/22 History rOPINIRole HCL [Requip] 0.5 mg PO HS 10/13/21 11/17/22 History Acetaminophen Tab [Tylenol Tab] 1,000 mg PO Q6HR PRN 11/17/22 11/17/22 History Famotidine [Pepcid] 40 mg PO BID 11/17/22 11/17/22 History Allergies Allergy/AdvReac Type Severity Reaction Status Date / Time albuterol Allergy Severe Rapid Verified 11/17/22 20:16 Heart Rate,see comment Physical Exam Vitals: Vital Signs Temp Pulse Pulse Resp BP BP Pulse Ox 11/18/22 01:01 97.4 F L 67 19 118/79 95 11/17/22 20:00 97.9 F 75 18 143/81 96 11/17/22 17:46 97.9 F 85 16 129/76 95 Intake and Output 11/17/22 11/18/22 11/18/22 22:59 06:59 14:59 Other: # Voids 1 Weight 86.636 kg - Constitutional General appearance: cooperative, no no acute distress - EENT Eyes: EOMI, PERRLA - Respiratory Respiratory: bilateral: CTA - Cardiovascular Rhythm: regular Heart sounds: normal: S1, S2 - Gastrointestinal Tenderness to left lower quadrant General gastrointestinal: normal bowel sounds, soft, tenderness - Integumentary Integumentary: normal, normal turgor - Psychiatric Psychiatric: A&O x's 3, appropriate affect, intact judgment & insight Results CBC & Chem 7: 11/17/22 18:09 11/17/22 18:09 Labs: Abnormal Lab Results - Last 24 Hours (Table) 11/17/22 11/17/22 11/17/22 Range/Units 18:09 18:09 19:25 WBC 12.4 H (3.8-10.6) k/uL Glucose 104 H (74-99) mg/dL Ur Specific Hugo >1.050 H (1.001-1.035) Urine Blood Small H (Negative) Urine Nitrite Positive H (Negative) Urine Bacteria Occasional H (None) /hpf Urine Mucus Rare H (None) /hpf Thrombosis Risk Factor Assmnt - Choose All That Apply Any of the Below Risk Factors Present?: Yes Each Factor Represents 1 point: Obesity (BMI >25) Other Risk Factors: Yes Each Risk Factor Represents 3 Points: Elevated anticardiolipin antibodies Other congenital or acquired thrombophilia - If yes, enter type in comment: No Thrombosis Risk Factor Assessment Total Risk Factor Score: 4 Thrombosis Risk Factor Assessment Level: Moderate Risk Assessment and Plan (1) Pneumoperitoneum Current Visit: Yes Status: Acute Code(s): K66.8 - OTHER SPECIFIED DISORDERS OF PERITONEUM SNOMED Code(s): 98086025 (2) Asthma Current Visit: No Status: Acute Code(s): J45.909 - UNSPECIFIED ASTHMA, UNCOMPLICATED SNOMED Code(s): 866762526 (3) History of DVT (deep vein thrombosis) Current Visit: No Status: Acute Code(s): Z86.718 - PERSONAL HISTORY OF OTHER VENOUS THROMBOSIS AND EMBOLISM SNOMED Code(s): 490841857 (4) Hypertension Current Visit: No Status: Acute Code(s): I10 - ESSENTIAL (PRIMARY) HYPERTENSION SNOMED Code(s): 15179061 Plan: Keep patient nothing by mouth Will await consult from surgeon. CMP and CBC in the morning. Patient seen and evaluated by nurse practitioner, physician in agreement with plan
[2022-11-18 09:11] LABS: African American GFR (CKD) 65.4 (60.0-200.0); Albumin 3.7 g/dL (3.8-4.9); Albumin/Globulin Ratio 1.45 (1.60-3.17); Anion Gap 11.2 mmol/L (10.00-18.00); BUN/Creat Ratio 9.41 Ratio (12.00-20.00); Calcium 9.2 mg/dL (8.7-10.3); Carbon Dioxide 24.3 mmol/L (20.0-27.5); Globulin 2.5 g/dL (1.6-3.3); Non-African American GFR(CKD) 56.5 (60.0-200.0); Potassium 4.2 mmol/L (3.5-5.5); Total Bilirubin 0.5 mg/dL (0.30-1.20); Total Protein 6.2 g/dL (6.2-8.2)
[2022-11-18] MEDS: SODIUM CHLORIDE 0.9% 1,000 ML IV SCH ×4 (10:32→22:07)
[2022-11-18 11:34] LABS: Basophils # (M) 0 X 10*3/uL (0.00-0.10); Eosinophils # (M) 0.52 X 10*3/uL (0.04-0.35); Lymphocytes # (M) 2.49 X 10*3/uL (0.90-5.00); Monocytes # (M) 0.52 X 10*3/uL (0.20-1.00); Neutrophils # (M) 9.56 X 10*3/uL (2.00-8.90); Neutrophils % (M) 73 %; RBC Morphology NORMAL
[2022-11-18] MEDS: metroNIDAZOLE-NS PMX 500 MG in SALINE 1 100ML.BAG IVPB SCH ×2 (13:16→17:37)
[2022-11-18] MEDS ORDERED: SODIUM CHLORIDE 0.9% 1,000 ML IV ONE (13:27)
--- NOTE | 2022-11-18 13:27 | P.GSCN ---
History of Present Illness Consult date: 11/18/22 History of present illness: Patient reports having mild left lower quadrant abdominal pain. CT images and abdominal x-rays reviewed. Clinically doing well. Recommend increase antibiotic to Flagyl 500 mg 4 times daily. Repeat CBC. May have ice chips popsicles. Discharge pending improvement of white blood cell count. Continue hospitalization at this time. Son at bedside. No peritonitis on exam. Past Medical History Past Medical History: Asthma, CVA/TIA, Deep Vein Thrombosis (DVT), GERD/Reflux, Hypertension Additional Past Medical History / Comment(s): "mini stroke-no residual",urinary leakage, restless leg syndrome, "thickening in left lung per recent scan", states upset stomach most, "lung aneurysm", States Hx of Rheumatic Fever, Measles x5 and several occurances of Mumps when she was a child,varicose veins History of Any Multi-Drug Resistant Organisms: None Reported Past Surgical History: Hernia Repair, Tonsillectomy, Tubal Ligation Additional Past Surgical History / Comment(s): vein stripping left leg,left carpel tunnel Past Anesthesia/Blood Transfusion Reactions: No Reported Reaction, Motion Sickness Additional Past Anesthesia/Blood Transfusion Reaction / Comm: no hx blood transfusion Past Psychological History: Anxiety Smoking Status: Never smoker Past Alcohol Use History: None Reported Past Drug Use History: None Reported - Past Family History Mother Family Medical History: Cancer Additional Family Medical History / Comment(s): Lung cancer Father Family Medical History: Hypertension Medications and Allergies Home Medications Medication Instructions Recorded Confirmed Type ALPRAZolam [Xanax] 0.25 mg PO BID 07/14/16 11/17/22 History Clopidogrel [Plavix] 75 mg PO DAILY 07/14/16 11/17/22 History Citalopram Hydrobromide [CeleXA] 20 mg PO HS 08/17/18 11/17/22 History Omeprazole 40 mg PO BID 08/17/18 11/17/22 History Montelukast Sodium [Singulair] 10 mg PO HS 10/13/21 11/17/22 History Tolterodine Tartrate [Tolterodine 4 mg PO DAILY 10/13/21 11/17/22 History Tartrate ER] amLODIPine [Norvasc] 5 mg PO DAILY 10/13/21 11/17/22 History rOPINIRole HCL [Requip] 0.5 mg PO HS 10/13/21 11/17/22 History Acetaminophen Tab [Tylenol Tab] 1,000 mg PO Q6HR PRN 11/17/22 11/17/22 History Famotidine [Pepcid] 40 mg PO BID 11/17/22 11/17/22 History Allergies Allergy/AdvReac Type Severity Reaction Status Date / Time albuterol Allergy Severe Rapid Verified 11/17/22 20:16 Heart Rate,see comment Surgical - Exam Vital Signs Temp Pulse Resp BP Pulse Ox 97.9 F 85 16 129/76 95 11/17/22 17:46 11/17/22 17:46 11/17/22 17:46 11/17/22 17:46 11/17/22 17:46 Results - Labs 11/18/22 05:37 11/18/22 05:37 Abnormal Lab Results - Last 24 Hours (Table) 11/17/22 11/17/22 11/17/22 Range/Units 18:09 18:09 19:25 WBC 12.4 H (3.8-10.6) k/uL MCHC (32.0-37.0) g/dL Neutrophils # (Manual) (2.00-8.90) X 10*3/uL Eosinophils # (Manual) (0.04-0.35) X 10*3/uL Est GFR (CKD-EPI)NonAf (60.0-200.0) BUN/Creatinine Ratio (12.00-20.00) Ratio Glucose 104 H (74-99) mg/dL Albumin (3.8-4.9) g/dL Albumin/Globulin Ratio (1.60-3.17) g/dL Ur Specific [place] >1.050 H (1.001-1.035) Urine Blood Small H (Negative) Urine Nitrite Positive H (Negative) Urine Bacteria Occasional H (None) /hpf Urine Mucus Rare H (None) /hpf 11/18/22 11/18/22 Range/Units 05:37 05:37 WBC 13.09 H (3.8-10.6) k/uL MCHC 30.2 L (32.0-37.0) g/dL Neutrophils # (Manual) 9.56 H (2.00-8.90) X 10*3/uL Eosinophils # (Manual) 0.52 H (0.04-0.35) X 10*3/uL Est GFR (CKD-EPI)NonAf 56.5 L (60.0-200.0) BUN/Creatinine Ratio 9.41 L (12.00-20.00) Ratio Glucose (74-99) mg/dL Albumin 3.7 L (3.8-4.9) g/dL Albumin/Globulin Ratio 1.45 L (1.60-3.17) g/dL Ur Specific [place] (1.001-1.035) Urine Blood (Negative) Urine Nitrite (Negative) Urine Bacteria (None) /hpf Urine Mucus (None) /hpf Diabetes panel 11/17/22 11/18/22 Range/Units 18:09 05:37 Sodium 137 141 (137-145) mmol/L Potassium 4.0 4.2 (3.5-5.1) mmol/L Chloride 105 106 (98-107) mmol/L Carbon Dioxide 25 24.3 (22-30) mmol/L BUN 13 9.0 (7-17) mg/dL Creatinine 0.92 1.0 (0.52-1.04) mg/dL Glucose 104 H 82 (74-99) mg/dL Calcium 8.7 9.2 (8.4-10.2) mg/dL AST 18 14 (14-36) U/L ALT 12 10 (4-34) U/L Alkaline Phosphatase 119 101 (38-126) U/L Total Protein 6.4 6.2 (6.3-8.2) g/dL Albumin 3.6 3.7 L (3.5-5.0) g/dL Calcium panel 11/17/22 11/18/22 Range/Units 18:09 05:37 Calcium 8.7 9.2 (8.4-10.2) mg/dL Albumin 3.6 3.7 L (3.5-5.0) g/dL Pituitary panel 11/17/22 11/18/22 Range/Units 18:09 05:37 Sodium 137 141 (137-145) mmol/L Potassium 4.0 4.2 (3.5-5.1) mmol/L Chloride 105 106 (98-107) mmol/L Carbon Dioxide 25 24.3 (22-30) mmol/L BUN 13 9.0 (7-17) mg/dL Creatinine 0.92 1.0 (0.52-1.04) mg/dL Glucose 104 H 82 (74-99) mg/dL Calcium 8.7 9.2 (8.4-10.2) mg/dL Adrenal panel 11/17/22 11/18/22 Range/Units 18:09 05:37 Sodium 137 141 (137-145) mmol/L Potassium 4.0 4.2 (3.5-5.1) mmol/L Chloride 105 106 (98-107) mmol/L Carbon Dioxide 25 24.3 (22-30) mmol/L BUN 13 9.0 (7-17) mg/dL Creatinine 0.92 1.0 (0.52-1.04) mg/dL Glucose 104 H 82 (74-99) mg/dL Calcium 8.7 9.2 (8.4-10.2) mg/dL Total Bilirubin 0.5 0.50 (0.2-1.3) mg/dL AST 18 14 (14-36) U/L ALT 12 10 (4-34) U/L Alkaline Phosphatase 119 101 (38-126) U/L Total Protein 6.4 6.2 (6.3-8.2) g/dL Albumin 3.6 3.7 L (3.5-5.0) g/dL
[2022-11-18 15:54] LABS: Basophils # (A) 0.1 k/uL (0-0.2); Basophils % (A) 1 %; Eosinophils # (A) 0.2 k/uL (0-0.7); Eosinophils % (A) 2 %; HCT 39.7 % (34.0-46.0); HGB 12.7 gm/dL (11.4-16.0); Lymphocytes # (A) 2.5 k/uL (1.0-4.8); Lymphocytes % (A) 31 %; MCH 29.2 pg (25.0-35.0); MCHC 32.1 g/dL (31.0-37.0); MCV 91.1 fL (80.0-100.0); Mean Platelet Volume 8.6; Monocytes # (A) 0.4 k/uL (0-1.0); Monocytes % (A) 5 %; Neutrophils # (A) 4.9 k/uL (1.3-7.7); Neutrophils % (A) 60 %; Platelet Count 247 k/uL (150-450); RBC 4.36 m/uL (3.80-5.40); RDW 12.9 % (11.5-15.5); WBC 8.1 k/uL (3.8-10.6)
[2022-11-18 15:56] LABS: African American GFR (CKD) 73 (>60 ml/min/1.73 sqM); Anion Gap 4 mmol/L; Blood Urea Nitrogen 8 mg/dL (7-17); Calcium 8.4 mg/dL (8.4-10.2); Carbon Dioxide 26 mmol/L (22-30); Chloride 109 mmol/L (98-107); Glucose 85 mg/dL (74-99); Non-African American GFR(CKD) 64 (>60 ml/min/1.73 sqM); Potassium 3.7 mmol/L (3.5-5.1); Sodium 139 mmol/L (137-145)
[2022-11-18] MEDS ORDERED: ACETAMINOPHEN TAB 500 MG TAB PO PRN (20:17)
[2022-11-18] MEDS ORDERED: MONTELUKAST 10 MG TAB PO SCH (21:00)
[2022-11-18] MEDS ORDERED: CITALOPRAM HYDROBROMIDE 20 MG TAB PO SCH (21:00)
[2022-11-18] MEDS: ALPRAZolam 0.25 MG TAB PO SCH (22:06)
[2022-11-19] MEDS: PIPERACILLIN-TAZOBACTAM 3.375 GM in SODIUM CHLORIDE 0.9% 100 ML IVPB SCH ×2 (00:42→08:51)
[2022-11-19] MEDS: metroNIDAZOLE-NS PMX 500 MG in SALINE 1 100ML.BAG IVPB SCH ×2 (00:43→06:30)
[2022-11-19] MEDS: SODIUM CHLORIDE 0.9% 1,000 ML IV SCH ×2 (07:33→08:50)
[2022-11-19 07:40] VITALS: BP 137/70; PULSE 60; TEMP 98
[2022-11-19 07:59] LABS: ALT 11 U/L (4-34); AST 16 U/L (14-36); African American GFR (CKD) 76 (>60 ml/min/1.73 sqM); Albumin 2.7 g/dL (3.5-5.0); Albumin/Globulin Ratio 1.1; Alkaline Phosphatase 79 U/L (38-126); Anion Gap 4 mmol/L; Blood Urea Nitrogen 6 mg/dL (7-17); Calcium 8.2 mg/dL (8.4-10.2); Carbon Dioxide 24 mmol/L (22-30); Chloride 111 mmol/L (98-107); Globulin 2.4 g/dL; Glucose 87 mg/dL (74-99); Non-African American GFR(CKD) 66 (>60 ml/min/1.73 sqM); Potassium 3.9 mmol/L (3.5-5.1); Sodium 139 mmol/L (137-145); Total Bilirubin 0.7 mg/dL (0.2-1.3); Total Protein 5.1 g/dL (6.3-8.2)
[2022-11-19 08:04] LABS: HCT 37.3 % (34.0-46.0); HGB 12.1 gm/dL (11.4-16.0); MCH 29.6 pg (25.0-35.0); MCHC 32.5 g/dL (31.0-37.0); MCV 91.2 fL (80.0-100.0); Mean Platelet Volume 9.2; Platelet Count 249 k/uL (150-450); RBC 4.08 m/uL (3.80-5.40); RDW 12.9 % (11.5-15.5); WBC 8.1 k/uL (3.8-10.6)
[2022-11-19] MEDS: ALPRAZolam 0.25 MG TAB PO SCH (08:50)
[2022-11-19] MEDS: PANTOPRAZOLE 40 MG/10 ML VIAL IVP SCH (08:50)
[2022-11-19] MEDS ORDERED: amLODIPine 5 MG TAB PO SCH (09:00)
[2022-11-19] MEDS ORDERED: OXYBUTYNIN 10 MG TAB.ER.24 PO SCH (09:00)
[2022-11-19 10:09] VITALS: RESP 18
--- NOTE | 2022-11-19 12:11 | P.PN ---
Subjective Progress Note Date: 11/19/22 Patient clinically stable. Tolerating diet. WBC normal. Treatment for diverticulitis for outpatient advised. May follow up in office in 2 weeks. Objective - Vital Signs Vital signs: Vital Signs Temp 98.0 F 11/19/22 07:39 Pulse 60 11/19/22 07:39 Resp 18 11/19/22 08:00 BP 137/70 11/19/22 07:39 Pulse Ox 96 11/19/22 07:39 FiO2 Intake & Output 11/18/22 11/19/22 11/19/22 18:59 06:59 18:59 Other: Voiding Method Toilet # Voids 1 3 # Bowel Movements 3 - Labs CBC & Chem 7: 11/19/22 05:26 11/19/22 05:26 Labs: Abnormal Lab Results - Last 24 Hours (Table) 11/18/22 11/19/22 Range/Units 15:35 05:26 Chloride 109 H 111 H (98-107) mmol/L BUN 6 L (7-17) mg/dL Calcium 8.2 L (8.4-10.2) mg/dL Total Protein 5.1 L (6.3-8.2) g/dL Albumin 2.7 L (3.5-5.0) g/dL Microbiology - Last 24 Hours (Table) 11/17/22 18:38 Blood Culture - Preliminary Blood No Growth after 24 hours 11/17/22 18:09 Blood Culture - Preliminary Blood No Growth after 24 hours
== END 2022-11-19 12:59 | disposition home or self-care (01) | DRG 392 ==
LOC: EC 17:17 → 4SSUR 19:50
PROVIDERS: ADMIT Family Medicine; ATTEND Family Medicine
DX: K57.92 Diverticulitis of intestine, part unspecified, without perforation or abscess without bleeding (principal); F41.9 Anxiety disorder, unspecified; K21.9 Gastro-esophageal reflux disease without esophagitis; I10 Essential (primary) hypertension; Z86.16 Personal history of COVID-19; J45.909 Unspecified asthma, uncomplicated; Z79.02 Long term (current) use of antithrombotics/antiplatelets; Z79.899 Other long term (current) drug therapy; Z86.718 Personal history of other venous thrombosis and embolism; Z86.73 Personal history of transient ischemic attack (TIA), and cerebral infarction without residual deficits; Z87.19 Personal history of other diseases of the digestive system; Z98.51 Tubal ligation status
CPT/HCPCS: 36415; 71046; 74019; 80048; 80053; 81001; 82150; 83605; 83690; 85025; 85027; 85610; 85730; 87040; 93005

== ENCOUNTER → 2022-11-17 | Outpatient (CLI) | payer MEDICARE ==
--- NOTE | 2022-11-17 14:39 | CT ---
EXAMINATION TYPE: CT angio thor/abd pel aorta DATE OF EXAM: 11/17/2022 COMPARISON: 10/13/2021 HISTORY: THORACIC AORTIC ANEURYSM W/O RUPTURE. CT DLP: 1716.8 mGycm CONTRAST: CTA thoracic and abdominal aorta with 3-D reconstruction is performed and without and with IV Contras t, patient injected with 100ml mL of Isovue 370. Contrast CTA of the thoracic and abdominal aorta was performed from the lung apex through the base of the pelvis. 3-D reconstruction imaging obtained at a separate workstation. CT Chest: THORACIC AORTA: There is ascending thoracic aortic aneurysm measuring approximately 4.1 cm AP dimensi on versus 4 cm previously. Atheromatous changes noted at the aortic arch and descending thoracic aort a which are of normal caliber. No dissection or mediastinal hematoma. Mild atheromatous changes are seen. LUNGS: The lungs are clear and free of infiltrate or atelectasis. No pulmonary nodule or mass is det ected. No pleural effusion or CT evidence of interstitial lung disease. MEDIASTINUM: The heart is not enlarged. No evidence for mediastinal mass or adenopathy. HILAR STRUCTURES: No evidence for mass. No hilar adenopathy is appreciated. OTHER: No significant abnormality. CONTRAST CT ABDOMEN AND PELVIS ABDOMINAL AORTA: No evidence for abdominal aortic aneurysm. No dissection. Iliac vessels are symmet reilly and patent. LIVER/GB- Uncomplicated cholelithiasis. No space-occupying lesion of the liver biliary tree is within normal limits. PANCREAS- No significant abnormality is seen. SPLEEN- No significant abnormality is seen. ADRENALS- No significant abnormality is seen. KIDNEYS/BLADDER- No significant abnormality is seen. BOWEL-there is a small amount of free air within the abdomen. Has there been recent procedure? If not perforated viscus is not excluded. There is irregularity of the descending duodenum which could refl ect the site of perforation. No obstruction or abscess. GENITAL ORGANS: No gross abnormality seen. LYMPH NODES- No greater than 1cm abdominal or pelvic lymph nodes are appreciated. OSSEOUS STRUCTURES- No significant abnormality is seen. OTHER- No significant abnormality is seen. IMPRESSION- 1. Small amount of free air within the abdomen. Correlate with any recent surgical procedures. Otherw ise a perforated viscus should be considered. As noted there is irregularity of the descending duoden um. 2. Ascending thoracic aortic aneurysm essentially unchanged. 3. Uncomplicated cholelithiasis.
== END | disposition home or self-care (01) ==
LOC: RADCTMAIN 12:21
PROVIDERS: ATTEND Family Medicine
DX: I71.21 Aneurysm of the ascending aorta, without rupture (principal); K80.20 Calculus of gallbladder without cholecystitis without obstruction; I71.20 Thoracic aortic aneurysm, without rupture, unspecified
CPT/HCPCS: 71275; 74174; 82565; 84520

== ENCOUNTER 2023-02-05 18:58 | Inpatient (IN) | payer MEDICARE ==
[2023-02-05 20:01] LABS: Basophils # (A) 0.1 k/uL (0-0.2); Basophils % (A) 1 %; Eosinophils # (A) 0.2 k/uL (0-0.7); Eosinophils % (A) 4 %; HCT 38.8 % (34.0-46.0); HGB 12.9 gm/dL (11.4-16.0); Lymphocytes # (A) 1.4 k/uL (1.0-4.8); Lymphocytes % (A) 26 %; MCH 29.9 pg (25.0-35.0); MCHC 33.3 g/dL (31.0-37.0); MCV 89.7 fL (80.0-100.0); Mean Platelet Volume 8.7; Monocytes # (A) 0.4 k/uL (0-1.0); Monocytes % (A) 7 %; Neutrophils # (A) 3.2 k/uL (1.3-7.7); Neutrophils % (A) 58 %; Platelet Count 250 k/uL (150-450); RBC 4.33 m/uL (3.80-5.40); RDW 13.4 % (11.5-15.5); WBC 5.4 k/uL (3.8-10.6)
[2023-02-05 20:13] LABS: ALT 18 U/L (4-34); AST 30 U/L (14-36); African American GFR (CKD) >90 (>60 ml/min/1.73 sqM); Albumin 3.3 g/dL (3.5-5.0); Alkaline Phosphatase 104 U/L (38-126); Anion Gap 6 mmol/L; Blood Urea Nitrogen 11 mg/dL (7-17); Calcium 8.5 mg/dL (8.4-10.2); Carbon Dioxide 27 mmol/L (22-30); Chloride 103 mmol/L (98-107); Glucose 132 mg/dL (74-99); Magnesium 1.8 mg/dL (1.6-2.3); Non-African American GFR(CKD) 81 (>60 ml/min/1.73 sqM); Potassium 3.6 mmol/L (3.5-5.1); Sodium 136 mmol/L (137-145); Total Bilirubin 0.9 mg/dL (0.2-1.3); Total Protein 6.1 g/dL (6.3-8.2)
--- NOTE | 2023-02-05 20:18 | XR ---
EXAMINATION TYPE: XR chest 2V DATE OF EXAM: 02/05/2023 COMPARISON: 11/17/2022 HISTORY: Abdominal pain TECHNIQUE: 2 views FINDINGS: Heart is normal. Lungs are clear of consolidation. Diaphragm is normal. Bony thorax appears normal. Thoracic aorta is atheromatous. There is small linear density left midlung field. IMPRESSION: Minimal subsegmental atelectasis or scarring in the left mid lung. Normal heart.
--- NOTE | 2023-02-05 20:25 | XR ---
EXAMINATION TYPE: XR ankle complete RT DATE OF EXAM: 02/05/2023 COMPARISON: NONE HISTORY: Pain TECHNIQUE: 3 views FINDINGS: There is soft tissue swelling around the ankle joint. Ankle mortise is anatomic. There is s ubcutaneous edema around the ankle. There is spurring at the talonavicular joint. Subtalar joint is i ntact. IMPRESSION: Soft tissue swelling. No fracture. 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
[2023-02-05 20:28] LABS: INR 0.9 (<1.2); Partial Thromboplastin Time 22.4 sec (22.0-30.0)
[2023-02-05] MEDS ORDERED: ASPIRIN 81 MG PO STA (20:54)
[2023-02-05] MEDS ORDERED: HEPARIN SODIUM 1,000 UN/ML (10ML VL) IV PRN (20:54)
[2023-02-05] MEDS ORDERED: HEPARIN SODIUM 1,000 UN/ML (10ML VL) IV ONE (20:54)
[2023-02-05] MEDS ORDERED: FUROSEMIDE 10 MG/ML 2 ML VIAL IV ONE (20:55)
--- NOTE | 2023-02-05 20:58 | XR ---
EXAMINATION TYPE: XR foot complete RT DATE OF EXAM: 02/05/2023 COMPARISON: None HISTORY: Pain and swelling TECHNIQUE: 3 views FINDINGS: Metatarsals are intact. There is some narrowing and spurring at the tarsometatarsal joints. The toes are intact. There is soft tissue swelling of the forefoot. 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 No fracture. Soft tissue swelling.
--- NOTE | 2023-02-05 21:02 | US ---
EXAMINATION TYPE: US venous doppler duplex LE DATE OF EXAM: 02/05/2023 7:26 PM COMPARISON: NONE CLINICAL HISTORY: LE swelling. Came back from cruise today and has bilateral leg swelling, injury to both lower legs on trip, no h/o dvt SIDE PERFORMED: Bilateral TECHNIQUE: The lower extremity deep venous system is examined utilizing real time linear array sonog lou with graded compression, doppler sonography and color-flow sonography. VESSELS IMAGED: Common Femoral Vein Deep Femoral Vein Greater Saphenous Vein * Femoral Vein Popliteal Vein Small Saphenous Vein * Proximal Calf Veins (* superficial vessels) Right Leg: Negative for DVT Left Leg: Negative for DVT IMPRESSION: No evidence of deep vein thrombosis in both legs.
[2023-02-05] MEDS: HEPARIN SOD,PORK IN 0.45% NACL 25,000 UNIT in 0.45% NACL 1 250ML.BAG IV SCH (21:33)
[2023-02-05] MEDS ORDERED: NALOXONE 0.4 MG/ML 1 ML VIAL IV PRN (21:35)
[2023-02-05] MEDS ORDERED: ACETAMINOPHEN TAB 325 MG TAB PO PRN (21:35)
[2023-02-05 22:20] LABS: Glucose,Whole Blood 121 mg/dL (70-110)
[2023-02-05 22:39] LABS: Appearance,Urine Clear (Clear); Bacteria,Urine Few /hpf; Bilirubin,Urine Negative (Negative); Blood,Urine Moderate (Negative); Color,Urine Light Yellow; Glucose,Urine (UA) Negative (Negative); Ketones,Urine Negative (Negative); Leukocyte Esterase,Urine Large (Negative); Mucus,Urine Rare /hpf; Nitrite,Urine Negative (Negative); Protein,Urine Negative (Negative); RBC,Urine 2 /hpf (0-5); Specific Gravity,Urine 1.005 (1.001-1.035); Squamous Epithelial Cell,Urine <1 /hpf (0-4); Urobilinogen,Urine <2.0 mg/dL (<2.0); WBC,Urine 44 /hpf (0-5)
--- NOTE | 2023-02-05 22:59 | ED ---
General Adult HPI - General Chief complaint: Extremity Injury, Lower Stated complaint: sick to stomach, leg pain, coughing Time Seen by Provider: 02/05/23 19:07 Source: patient Mode of arrival: ambulatory Limitations: no limitations - History of Present Illness Initial comments: Patient is a 77-year-old female presenting with lower extremity swelling and difficulty breathing. Patient notes that she just got off a cruise today. She is having bilateral swelling to the lower extremities. She also notes an area of injury, states that she had a wheelchair pushed into the back of her leg a few days ago, it is now red and tender, she is worried for infection. She admits to moderately increasing shortness of breath. She denies any chest pain. She also admits to nausea. No vomiting, abdominal pain, diarrhea, fever, chills. Patient is also complaining of bruises on the arm, she states that the other day her son grabbed her arm to help her stand up and it bruised very easily. She notes that she is on Plavix. - Related Data Home Medications Medication Instructions Recorded Confirmed ALPRAZolam [Xanax] 0.25 mg PO TID PRN 07/14/16 02/05/23 Clopidogrel [Plavix] 75 mg PO DAILY 07/14/16 02/05/23 Citalopram Hydrobromide [CeleXA] 20 mg PO HS 08/17/18 02/05/23 Omeprazole 40 mg PO BID 08/17/18 02/05/23 Montelukast Sodium [Singulair] 10 mg PO HS 10/13/21 02/05/23 Tolterodine Tartrate [Tolterodine 4 mg PO DAILY 10/13/21 02/05/23 Tartrate ER] amLODIPine [Norvasc] 5 mg PO DAILY 10/13/21 02/05/23 rOPINIRole HCL [Requip] 0.5 mg PO HS 10/13/21 02/05/23 Famotidine [Pepcid] 40 mg PO BID 11/17/22 02/05/23 Albuterol Sulfate [Proventil Hfa] 2 puff INHALATION RT-Q6H PRN 01/04/23 02/05/23 Celecoxib [CeleBREX] 200 mg PO DAILY 02/05/23 02/05/23 Pantoprazole [Protonix] 40 mg PO DAILY 02/05/23 02/05/23 Allergies Allergy/AdvReac Type Severity Reaction Status Date / Time albuterol Allergy Severe Rapid Verified 02/05/23 20:41 Heart Rate,see comment Review of Systems ROS Statement: Those systems with pertinent positive or pertinent negative responses have been documented in the HPI. ROS Other: All systems not noted in ROS Statement are negative. Past Medical History Past Medical History: Asthma, CVA/TIA, Deep Vein Thrombosis (DVT), GERD/Reflux, Hypertension, Osteoarthritis (OA) Additional Past Medical History / Comment(s): "mini stroke-no residual",urinary leakage, restless leg syndrome, "thickening in left lung per scan", "lung aneurysm", Hx of Rheumatic Fever, Measles x5 and several occurances of Mumps when she was a child., COVID sep 2021, hx "broken back". History of Any Multi-Drug Resistant Organisms: None Reported Past Surgical History: Hernia Repair, Tonsillectomy, Tubal Ligation Additional Past Surgical History / Comment(s): vein stripping left leg,left carpel tunnel Past Anesthesia/Blood Transfusion Reactions: No Reported Reaction, Motion Sickness Additional Past Anesthesia/Blood Transfusion Reaction / Comment(s): no hx blood transfusion Past Psychological History: Anxiety Smoking Status: Never smoker Past Alcohol Use History: None Reported Past Drug Use History: None Reported - Past Family History Mother Family Medical History: Cancer Additional Family Medical History / Comment(s): Lung cancer Father Family Medical History: Hypertension General Exam Limitations: no limitations General appearance: alert, in no apparent distress Head exam: Present: atraumatic, normocephalic, normal inspection Eye exam: Present: normal appearance Neck exam: Present: normal inspection, full ROM Respiratory exam: Present: normal lung sounds bilaterally. Absent: respiratory distress, wheezes, rales, rhonchi, stridor Cardiovascular Exam: Present: regular rate, normal rhythm, normal heart sounds. Absent: systolic murmur, diastolic murmur, rubs, gallop, clicks Extremities exam: Present: pedal edema Neurological exam: Present: alert, oriented X3, CN II-XII intact Psychiatric exam: Present: normal affect, normal mood Skin exam: Present: warm, dry, erythema (Area of erythema to the posterior lower leg) Course Vital Signs 02/05/23 02/05/23 19:00 21:00 Temperature 97.8 F Pulse Rate 90 74 Respiratory 20 16 Rate Blood Pressure 124/82 129/65 O2 Sat by Pulse 94 L 95 Oximetry EKG Findings - EKG Comments: EKG Findings:: Sinus rhythm ventricular rate 79. AR interval 199. QRS 102. QT 403. QTC 437. No acute ST segment deviation Medical Decision Making - Medical Decision Making Was pt. sent in by a medical professional or institution (, PA, CRIMINAL RESEARCHER, urgent care, hospital, or skilled nursing...) When possible be specific @ -No Did you speak to anyone other than the patient for history (EMS, parent, family, police, friend...)? What history was obtained from this source @ -No Did you review nursing and triage notes (agree or disagree)? Why? @ -Reviewed the triage note and agreed with the exception that the patient's primary complaint is lower extremity swelling Were old charts reviewed (outside hosp., previous admission, EMS record, old EKG, old radiological studies, urgent care reports/EKG's, skilled nursing records)? Report findings @ -No old charts were reviewed Differential Diagnosis (chest pain, altered mental status, abdominal pain women, abdominal pain men, vaginal bleeding, weakness, fever, dyspnea, syncope, headache, dizziness, GI bleed, back pain, seizure, CVA, palpatations, mental health, musculoskeletal)? @ -MDM Differential Dyspnea: Coronary syndrome, arrhythmia, tamponade, asthma, COPD, pulmonary embolism, pneumonia, pneumothorax, pulmonary effusion, anaphylaxis, diabetic ketoacidosis, flailed chest, pulmonary contusion, diaphragmatic rupture, anemia, neuromuscular this is not meant to be an all-inclusive list. EKG interpreted by me (3pts min.). @ -As above X-rays interpreted by me (1pt min.). @ -Chest x-ray shows minimal subsegmental atelectasis or scarring in the left midlung. Normal heart. X-ray of the foot and ankle show no fracture or dislocation. CT interpreted by me (1pt min.). @ -None done U/S interpreted by me (1pt. min.). @ -Ultrasound shows no evidence of DVT bilaterally What testing was considered but not performed or refused? (CT, X-rays, U/S, labs)? Why? @ -None What meds were considered but not given or refused? Why? @ -None Did you discuss the management of the patient with other professionals (professionals i.e. , PA, CRIMINAL RESEARCHER, lab, RT, psych nurse, health and social care teacher, cutting pressman, teacher, lead security officer, oil field caser)? Give summary @ -Discussed with admitting physician Dr. conn Was smoking cessation discussed for >3mins.? @ -No Was critical care preformed (if so, how long)? @ -No Were there social determinants of health that impacted care today? How? (Homelessness, low income, unemployed, alcoholism, drug addiction, transportation, low edu. Level, literacy, decrease access to med. care, nursing home, rehab)? @ -No Was there de-escalation of care discussed even if they declined (Discuss DNR or withdrawal of care, Hospice)? DNR status @ -No What co-morbidities impacted this encounter? (DM, HTN, Smoking, COPD, CAD, Cancer, CVA, ARF, Chemo, Hep., AIDS, mental health diagnosis, sleep apnea, morbid obesity)? @ -Asthma, hypertension, history of CVA/TIA Was patient admitted / discharged? Hospital course, mention meds given and route, prescriptions, significant lab abnormalities, going to OR and other pertinent info. @ -Patient is a 77-year-old female presenting with multiple complaints. Of those include lower extremity edema with shortness of breath, area of redness and swelling to the posterior left lower leg, and nausea. On physical examination there is bilateral pitting edema to the lower extremities. There is an area of erythema and tenderness that appears consistent with cellulitis to the posterior left lower leg. Patient is complaining of pain over the right foot after dropping a suitcase on it. Lab work shows troponin of 0.539. BNP 2840. EKG shows no acute changes. Patient is started on heparin, she is given a dose of aspirin and Lasix. X-rays are negative for acute fracture. Chest x- ray shows no acute process. Ultrasound is negative for DVT. Urine is pending at this time. I spoke with admitting physician Dr. conn who accepted this patient. Patient is agreeable with this plan. I discussed this case with my attending Dr. Mata Undiagnosed new problem with uncertain prognosis? @ -No Drug Therapy requiring intensive monitoring for toxicity (Heparin, Nitro, Insulin, Cardizem)? @ -Heparin Were any procedures done? @ -No Diagnosis/symptom? @ -NSTEMI Acute, or Chronic, or Acute on Chronic? @ -Acute Uncomplicated (without systemic symptoms) or Complicated (systemic symptoms)? @ -Complicated Side effects of treatment? @ -No Exacerbation, Progression, or Severe Exacerbation? @ -No Poses a threat to life or bodily function? How? (Chest pain, USA, PR, pneumonia, PE, COPD, DKA, ARF, appy, cholecystitis, CVA, Diverticulitis, Homicidal, Suicidal, threat to staff... and all critical care pts) @ -yes Diagnosis/symptom? @CHF Acute, or Chronic, or Acute on Chronic? @Acute Uncomplicated (without systemic symptoms) or Complicated (systemic symptoms)? @Complicated Side effects of treatment? @ none Exacerbation, Progression, or Severe Exacerbation] @Exacerbation Poses a threat to life or bodily function? @Yes - Lab Data Result diagrams: 02/05/23 19:43 02/05/23 19:43 Lab Results 02/05/23 02/05/23 02/05/23 Range/Units 19:43 19:43 19:43 WBC 5.4 (3.8-10.6) k/uL RBC 4.33 (3.80-5.40) m/uL Hgb 12.9 (11.4-16.0) gm/dL Hct 38.8 (34.0-46.0) % MCV 89.7 (80.0-100.0) fL MCH 29.9 (25.0-35.0) pg MCHC 33.3 (31.0-37.0) g/dL RDW 13.4 (11.5-15.5) % Plt Count 250 (150-450) k/uL MPV 8.7 Neutrophils % 58 % Lymphocytes % 26 % Monocytes % 7 % Eosinophils % 4 % Basophils % 1 % Neutrophils # 3.2 (1.3-7.7) k/uL Lymphocytes # 1.4 (1.0-4.8) k/uL Monocytes # 0.4 (0-1.0) k/uL Eosinophils # 0.2 (0-0.7) k/uL Basophils # 0.1 (0-0.2) k/uL PT 10.0 (9.0-12.0) sec INR 0.9 (<1.2) APTT 22.4 (22.0-30.0) sec Sodium 136 L (137-145) mmol/L Potassium 3.6 (3.5-5.1) mmol/L Chloride 103 (98-107) mmol/L Carbon Dioxide 27 (22-30) mmol/L Anion Gap 6 mmol/L BUN 11 (7-17) mg/dL Creatinine 0.72 (0.52-1.04) mg/dL Est GFR (CKD-EPI)AfAm >90 (>60 ml/min/1.73 sqM) Est GFR (CKD-EPI)NonAf 81 (>60 ml/min/1.73 sqM) Glucose 132 H (74-99) mg/dL Plasma Lactic Acid Olvin (0.7-2.0) mmol/L Calcium 8.5 (8.4-10.2) mg/dL Magnesium 1.8 (1.6-2.3) mg/dL Total Bilirubin 0.9 (0.2-1.3) mg/dL AST 30 (14-36) U/L ALT 18 (4-34) U/L Alkaline Phosphatase 104 (38-126) U/L Troponin I (0.000-0.034) ng/mL NT-Pro-B Natriuret Pep pg/mL Total Protein 6.1 L (6.3-8.2) g/dL Albumin 3.3 L (3.5-5.0) g/dL 02/05/23 02/05/23 02/05/23 Range/Units 19:43 19:43 19:43 WBC (3.8-10.6) k/uL RBC (3.80-5.40) m/uL Hgb (11.4-16.0) gm/dL Hct (34.0-46.0) % MCV (80.0-100.0) fL MCH (25.0-35.0) pg MCHC (31.0-37.0) g/dL RDW (11.5-15.5) % Plt Count (150-450) k/uL MPV Neutrophils % % Lymphocytes % % Monocytes % % Eosinophils % % Basophils % % Neutrophils # (1.3-7.7) k/uL Lymphocytes # (1.0-4.8) k/uL Monocytes # (0-1.0) k/uL Eosinophils # (0-0.7) k/uL Basophils # (0-0.2) k/uL PT (9.0-12.0) sec INR (<1.2) APTT (22.0-30.0) sec Sodium (137-145) mmol/L Potassium (3.5-5.1) mmol/L Chloride (98-107) mmol/L Carbon Dioxide (22-30) mmol/L Anion Gap mmol/L BUN (7-17) mg/dL Creatinine (0.52-1.04) mg/dL Est GFR (CKD-EPI)AfAm (>60 ml/min/1.73 sqM) Est GFR (CKD-EPI)NonAf (>60 ml/min/1.73 sqM) Glucose (74-99) mg/dL Plasma Lactic Acid Olvin 1.6 (0.7-2.0) mmol/L Calcium (8.4-10.2) mg/dL Magnesium (1.6-2.3) mg/dL Total Bilirubin (0.2-1.3) mg/dL AST (14-36) U/L ALT (4-34) U/L Alkaline Phosphatase (38-126) U/L Troponin I 0.539 H* (0.000-0.034) ng/mL NT-Pro-B Natriuret Pep 2840 pg/mL Total Protein (6.3-8.2) g/dL Albumin (3.5-5.0) g/dL Disposition Clinical Impression: NSTEMI (non-ST elevated myocardial infarction), CHF (congestive heart failure), Cellulitis Disposition: ADMITTED IP TO THIS HOSP Condition: Serious Time of Disposition: 22:58
[2023-02-06] MEDS: HYDROcodone/APAP 5-325MG 1 EACH TAB PO PRN ×2 (04:44→10:38)
[2023-02-06 04:53] LABS: Basophils % (A) 1 %; Eosinophils # (A) 0.3 k/uL (0-0.7); Eosinophils % (A) 6 %; HCT 35.2 % (34.0-46.0); HGB 11.9 gm/dL (11.4-16.0); Lymphocytes # (A) 1.9 k/uL (1.0-4.8); Lymphocytes % (A) 40 %; MCH 30.3 pg (25.0-35.0); MCHC 33.9 g/dL (31.0-37.0); MCV 89.5 fL (80.0-100.0); Mean Platelet Volume 8.5; Monocytes # (A) 0.4 k/uL (0-1.0); Monocytes % (A) 8 %; Neutrophils % (A) 43 %; Platelet Count 238 k/uL (150-450); RBC 3.93 m/uL (3.80-5.40); RDW 13.4 % (11.5-15.5); WBC 4.8 k/uL (3.8-10.6)
[2023-02-06 05:02] LABS: Partial Thromboplastin Time 55.3 sec (22.0-30.0); Prothrombin Time 10.7 sec (9.0-12.0)
[2023-02-06 05:52] LABS: ALT 15 U/L (4-34); AST 29 U/L (14-36); African American GFR (CKD) >90 (>60 ml/min/1.73 sqM); Alkaline Phosphatase 94 U/L (38-126); Anion Gap 6 mmol/L; Blood Urea Nitrogen 10 mg/dL (7-17); Calcium 8.2 mg/dL (8.4-10.2); Carbon Dioxide 28 mmol/L (22-30); Chloride 105 mmol/L (98-107); Glucose 91 mg/dL (74-99); Magnesium 1.8 mg/dL (1.6-2.3); Non-African American GFR(CKD) 84 (>60 ml/min/1.73 sqM); Potassium 3.4 mmol/L (3.5-5.1); Sodium 139 mmol/L (137-145); Total Bilirubin 0.7 mg/dL (0.2-1.3); Total Protein 5.5 g/dL (6.3-8.2)
[2023-02-06] MEDS ORDERED: TIOTROPIUM 2.5 MCG INHALER INHALATION STA (07:20)
--- NOTE | 2023-02-06 07:30 | P.HPIM ---
History of Present Illness This is a pleasant 77 years old female with past medical history of Asthma, CVA/TIA, Deep Vein Thrombosis not on anticoagulation, GERD/Reflux, Hypertension, Osteoarthritis , restless leg syndrome, Hx of Rheumatic Fever, Measles x5 and several occurances of Mumps when she was a child., KI sep 2021 Patient went to cruise for 4 days where she has an accident in the chair hit the back of her both legs, she has a small blister on her right leg but left leg developed ulcer with surrounding cellulitis redness and warmth suspicious for infection. Also she's been having little short of breath, she has history of asthma so she thinks this due to her asthma exacerbation and she wasn't born much about it, she has some little cough with clear phlegm. She has no orthopnea, no paroxysmal nocturnal dyspnea. She denies chest pain or pressure, no epigastric pain or tenderness, no vomiting or diarrhea. No urinary symptoms. She never smoked, no alcohol, no illicit drugs Vitals are stable Patient has unremarkable CBC, INR, BMP and liver enzymes. INR elevated at 0.5 and 0.6. ProBNP is elevated to 2840. Urine analysis iS suspicious for infection Ankle x-ray: No fracture osteoarthritic changes and soft tissue swelling chest x-ray showing minimal subsegmental atelectasis or scarring in the left mid lung. Normal heart Venous Doppler is negative for DVT On admission patient was given aspirin and heparin drip Review of Systems Review of systems CONSTITUTIONAL: No fever, no malaise, no fatigue. HEENT: No recent visual problems or hearing problems. Denied any sore throat. CARDIOVASCULAR: No orthopnea, PND, no palpitations, no syncope. PULMONARY: No chest wall tenderness, no hemoptysis. GASTROINTESTINAL: No diarrhea, no nausea, no vomiting, no abdominal pain. Normoactive bowel sounds. NEUROLOGICAL: No headaches, no weakness, no numbness. HEMATOLOGICAL: Denies any bleeding or petechiae. GENITOURINARY: Denies any burning micturition, frequency, or urgency. MUSCULOSKELETAL/RHEUMATOLOGICAL: Denies any joint pain, swelling, or any muscle pain. ENDOCRINE: Denies any polyuria or polydipsia. Past Medical History Past Medical History: Asthma, CVA/TIA, Deep Vein Thrombosis (DVT), GERD/Reflux, Hypertension, Osteoarthritis (OA) Additional Past Medical History / Comment(s): "mini stroke-no residual",urinary leakage, restless leg syndrome, "thickening in left lung per scan", "lung aneurysm", Hx of Rheumatic Fever, Measles x5 and several occurances of Mumps when she was a child., COVID sep 2021, hx "broken back". History of Any Multi-Drug Resistant Organisms: None Reported Past Surgical History: Hernia Repair, Tonsillectomy, Tubal Ligation Additional Past Surgical History / Comment(s): vein stripping left leg,left carpel tunnel Past Anesthesia/Blood Transfusion Reactions: No Reported Reaction, Motion Sickness Additional Past Anesthesia/Blood Transfusion Reaction / Comment(s): no hx blood transfusion Past Psychological History: Anxiety Smoking Status: Never smoker Past Alcohol Use History: None Reported Past Drug Use History: None Reported - Past Family History Mother Family Medical History: Cancer Additional Family Medical History / Comment(s): Lung cancer Father Family Medical History: Hypertension Medications and Allergies Home Medications Medication Instructions Recorded Confirmed Type ALPRAZolam [Xanax] 0.25 mg PO TID PRN 07/14/16 02/05/23 History Clopidogrel [Plavix] 75 mg PO DAILY 07/14/16 02/05/23 History Citalopram Hydrobromide [CeleXA] 20 mg PO HS 08/17/18 02/05/23 History Omeprazole 40 mg PO BID 08/17/18 02/05/23 History Montelukast Sodium [Singulair] 10 mg PO HS 10/13/21 02/05/23 History Tolterodine Tartrate [Tolterodine 4 mg PO DAILY 10/13/21 02/05/23 History Tartrate ER] amLODIPine [Norvasc] 5 mg PO DAILY 10/13/21 02/05/23 History rOPINIRole HCL [Requip] 0.5 mg PO HS 10/13/21 02/05/23 History Famotidine [Pepcid] 40 mg PO BID 11/17/22 02/05/23 History Albuterol Sulfate [Proventil Hfa] 2 puff INHALATION RT-Q6H PRN 01/04/23 02/05/23 History Celecoxib [CeleBREX] 200 mg PO DAILY 02/05/23 02/05/23 History Pantoprazole [Protonix] 40 mg PO DAILY 02/05/23 02/05/23 History Allergies Allergy/AdvReac Type Severity Reaction Status Date / Time albuterol Allergy Severe Rapid Verified 02/05/23 20:41 Heart Rate,see comment Physical Exam Vitals: Vital Signs Temp Pulse Pulse Resp BP BP Pulse Ox 02/06/23 04:00 98.1 F 78 16 112/70 94 L 02/06/23 03:00 78 18 02/05/23 23:00 97.9 F 78 18 114/63 93 L 02/05/23 22:22 93 L 02/05/23 21:00 74 16 129/65 95 02/05/23 19:00 97.8 F 90 20 124/82 94 L Intake and Output 02/05/23 02/06/23 02/06/23 21:59 06:59 14:59 Other: Voiding Method # Voids Weight GENERAL: The patient is alert and oriented x3, not in any acute distress. Well developed, well nourished. HEENT: Pupils are round and equally reacting to light. EOMI. No scleral icterus. No conjunctival pallor. Normocephalic, atraumatic. No pharyngeal erythema. No thyromegaly. CARDIOVASCULAR: S1 and S2 present. No murmurs, rubs, or gallops. -PULMONARY: Chest is clear to auscultation, no wheezing or crackles. Mild tac hypnea ABDOMEN: Soft, nontender, nondistended, normoactive bowel sounds. No palpable organomegaly. MUSCULOSKELETAL: No joint swelling or deformity. -EXTREMITIES: No cyanosis, clubbing, or pedal edema. 1.5- inch ulcer in the back of the left leg with surrounding cellulitis. Small blister on the back of the right leg with no evidence of cellulitis NEUROLOGICAL: Gross neurological examination did not reveal any focal deficits. SKIN: No rashes. no petechiae. Results CBC & Chem 7: 02/06/23 04:35 02/06/23 04:35 Labs: Abnormal Lab Results - Last 24 Hours (Table) 02/05/23 02/05/23 02/05/23 Range/Units 19:43 19:43 22:00 APTT (22.0-30.0) sec Sodium 136 L (137-145) mmol/L Potassium (3.5-5.1) mmol/L Glucose 132 H (74-99) mg/dL POC Glucose (mg/dL) (70-110) mg/dL Calcium (8.4-10.2) mg/dL Troponin I 0.539 H* 0.634 H* (0.000-0.034) ng/mL Total Protein 6.1 L (6.3-8.2) g/dL Albumin 3.3 L (3.5-5.0) g/dL Urine Blood (Negative) Ur Leukocyte Esterase (Negative) Urine WBC (0-5) /hpf Urine WBC Clumps (None) /hpf Urine Bacteria (None) /hpf Urine Mucus (None) /hpf 02/05/23 02/05/23 02/06/23 Range/Units 22:18 22:22 04:35 APTT 55.3 H (22.0-30.0) sec Sodium (137-145) mmol/L Potassium (3.5-5.1) mmol/L Glucose (74-99) mg/dL POC Glucose (mg/dL) 121 H (70-110) mg/dL Calcium (8.4-10.2) mg/dL Troponin I (0.000-0.034) ng/mL Total Protein (6.3-8.2) g/dL Albumin (3.5-5.0) g/dL Urine Blood Moderate H (Negative) Ur Leukocyte Esterase Large H (Negative) Urine WBC 44 H (0-5) /hpf Urine WBC Clumps Occasional H (None) /hpf Urine Bacteria Few H (None) /hpf Urine Mucus Rare H (None) /hpf 02/06/23 02/06/23 Range/Units 04:35 04:35 APTT (22.0-30.0) sec Sodium (137-145) mmol/L Potassium 3.4 L (3.5-5.1) mmol/L Glucose (74-99) mg/dL POC Glucose (mg/dL) (70-110) mg/dL Calcium 8.2 L (8.4-10.2) mg/dL Troponin I 0.631 H* (0.000-0.034) ng/mL Total Protein 5.5 L (6.3-8.2) g/dL Albumin 3.0 L (3.5-5.0) g/dL Urine Blood (Negative) Ur Leukocyte Esterase (Negative) Urine WBC (0-5) /hpf Urine WBC Clumps (None) /hpf Urine Bacteria (None) /hpf Urine Mucus (None) /hpf Thrombosis Risk Factor Assmnt - Choose All That Apply Any of the Below Risk Factors Present?: Yes Each Factor Represents 1 point: Minor surgery planned, Obesity (BMI >25), Swollen legs (current) Other Risk Factors: Yes Each Risk Factor Represents 3 Points: Age 75 years or older Other congenital or acquired thrombophilia - If yes, enter type in comment: No Thrombosis Risk Factor Assessment Total Risk Factor Score: 6 Thrombosis Risk Factor Assessment Level: High Risk Assessment and Plan Assessment: Left leg cellulitis with ulcer on the back of her leg Elevated troponin without chest pain, suspicious non- STEMI Hypertension asthma with mild exacerbation History of osteoarthritis History of CVA/TIA History of deep venous thrombosis not on anticoagulation History of rheumatic fever Plan: Continue with antibiotic and follow-up culture results Continue with heparin drip continue with aspirin Cardiology consult EchocardiogramCheck for heart function Bronchodilator ( patient is ALLERGIC to albuterol although it's was tachycardia which is mostly side effect, however we gave her ipratropium patient states) inhaled steroid given her history of asthma Labs and medication were reviewed.. Continue same treatment. Continue with symptomatic treatment. Resume home medication. Monitor labs and vitals. DVT and GI prophylaxis. Further recommendations as per clinical course of the patient DVT prophylaxis: Subcutaneous heparin GI Prophylaxis: Pepcid PT/OT: Pending Prognosis is guarded
[2023-02-06] MEDS ORDERED: SYMBICORT 80-4.5 MCG INHALER INHALATION SCH (08:00)
[2023-02-06] MEDS: BUDESONIDE 0.5 MG/2 ML NEBU INHALATION SCH ×2 (08:49→20:15)
[2023-02-06] MEDS ORDERED: FUROSEMIDE 10 MG/ML 4 ML VIAL IV SCH (09:00)
[2023-02-06] MEDS ORDERED: FUROSEMIDE 10 MG/ML 2 ML VIAL IV SCH (09:00)
[2023-02-06] MEDS ORDERED: amLODIPine 5 MG TAB PO SCH (09:00)
[2023-02-06] MEDS: PANTOPRAZOLE 40 MG TABLET PO SCH (10:38)
[2023-02-06] MEDS: CLOPIDOGREL 75 MG TAB PO SCH (10:38)
[2023-02-06] MEDS: METOPROLOL TARTRATE 25 MG TAB PO SCH ×2 (10:38→20:15)
[2023-02-06] MEDS: ASPIRIN 81 MG PO SCH (10:42)
[2023-02-06] MEDS: ALPRAZolam 0.25 MG TAB PO PRN (20:54)
[2023-02-06] MEDS: HEPARIN SOD,PORK IN 0.45% NACL 25,000 UNIT in 0.45% NACL 1 250ML.BAG IV SCH (20:55)
--- NOTE | 2023-02-06 21:53 | P.CONS ---
History of Present Illness - Reason for Consult Consult date: 02/06/23 Right leg cellulitis and ulcer Requesting physician: Claude E Sheet - Chief Complaint Increasing swelling redness to the leg x few days - History of Present Illness Patient is a 77-year-old female with multiple comorbidities including hypertension CVA TIA DVT GERD and asthma apparently the patient was recently on a cruise and has received traumatic laceration to the left posterior leg from the leg wheelchair that was pushed into the back of her leg few days before presentation to the hospital patient did have a skin breakdown and superficial ulceration patient is observed noticed to have increasing swelling and redness around the area of laceration and noted to have increased swelling in the leg patient complaining of pain to the affected area to be more of a dull aching 3-4 out of 10 head no radiation patient did have some clear drainage initially de nies having any bleeding or any purulent drainage with the symptom the patient was evaluated by the ER physician on arrival to the ER patient was afebrile and no fever has been recorded subsequently patient did have a normal white count kidney function has been normal liver enzymes are normal troponin is elevated did have a positive UA patient did have a lower extremity Doppler that was negative for DVT x-ray of the foot and ankle did not show any bony abnormality patient was started on cefazolin infectious disease was consulted for further management of antibiotic therapy Review of Systems Positive point has been mentioned in the HPI rest of the systems are negative Past Medical History Past Medical History: Asthma, CVA/TIA, Deep Vein Thrombosis (DVT), GERD/Reflux, Hypertension, Osteoarthritis (OA) Additional Past Medical History / Comment(s): "mini stroke-no residual",urinary leakage, restless leg syndrome, "thickening in left lung per scan", "lung aneurysm", Hx of Rheumatic Fever, Measles x5 and several occurances of Mumps when she was a child., COVID sep 2021, hx "broken back". History of Any Multi-Drug Resistant Organisms: None Reported Past Surgical History: Hernia Repair, Tonsillectomy, Tubal Ligation Additional Past Surgical History / Comment(s): vein stripping left leg,left carpel tunnel Past Anesthesia/Blood Transfusion Reactions: No Reported Reaction, Motion Sickness Additional Past Anesthesia/Blood Transfusion Reaction / Comm: no hx blood trans fusion Past Psychological History: Anxiety Smoking Status: Never smoker Past Alcohol Use History: None Reported Past Drug Use History: None Reported - Past Family History Mother Family Medical History: Cancer Additional Family Medical History / Comment(s): Lung cancer Father Family Medical History: Hypertension Medications and Allergies Home Medications Medication Instructions Recorded Confirmed Type ALPRAZolam [Xanax] 0.25 mg PO TID PRN 07/14/16 02/05/23 History Clopidogrel [Plavix] 75 mg PO DAILY 07/14/16 02/05/23 History Citalopram Hydrobromide [CeleXA] 20 mg PO HS 08/17/18 02/05/23 History Omeprazole 40 mg PO BID 08/17/18 02/05/23 History Montelukast Sodium [Singulair] 10 mg PO HS 10/13/21 02/05/23 History Tolterodine Tartrate [Tolterodine 4 mg PO DAILY 10/13/21 02/05/23 History Tartrate ER] rOPINIRole HCL [Requip] 0.5 mg PO HS 10/13/21 02/05/23 History Famotidine [Pepcid] 40 mg PO BID 11/17/22 02/05/23 History Celecoxib [CeleBREX] 200 mg PO DAILY 02/05/23 02/05/23 History Pantoprazole [Protonix] 40 mg PO DAILY 02/05/23 02/05/23 History Atorvastatin [Lipitor] 40 mg PO DAILY #30 tab 02/09/23 Rx Cephalexin [Keflex] 500 mg PO Q6HR 7 Days #28 cap 02/09/23 Rx Metoprolol Tartrate [Lopressor] 25 mg PO BID #60 tab 02/09/23 Rx Tiotropium 2.5 Mcg/Puff [Spiriva 2 puff INHALATION RT-DAILY PRN #1 02/09/23 Rx Respimat 2.5 Mcg] each amLODIPine [Norvasc] 5 mg PO DAILY #30 tab 02/09/23 Rx Allergies Allergy/AdvReac Type Severity Reaction Status Date / Time albuterol Allergy Severe Rapid Verified 02/05/23 20:41 Heart Rate,see comment Physical Exam Vitals: Vital Signs Temp Pulse Pulse Resp BP BP Pulse Ox 02/06/23 11:45 97.8 F 60 16 122/60 92 L 02/06/23 09:05 72 16 132/82 02/06/23 08:59 80 02/06/23 08:53 78 03/12/23 04:00 98.1 F 78 16 112/70 94 L 02/06/23 03:00 78 18 02/05/23 23:00 97.9 F 78 18 114/63 93 L 02/05/23 22:22 93 L 02/05/23 21:00 74 16 129/65 95 02/05/23 19:00 97.8 F 90 20 124/82 94 L Intake and Output 02/05/23 02/06/23 02/06/23 21:59 06:59 14:59 Intake Total 358 Output Total 450 Balance -92 Intake: Oral 358 Output: Urine 450 Other: Voiding Method Bedside Commode Diaper External Catheter # Voids Weight GENERAL DESCRIPTION: Elderly female male lying in bed, no distress. No tachypnea or accessory muscle of respiration use. HEENT: Shows Pallor , no scleral icterus. Oral mucous membrane is dry. No pharyngeal erythema or thrush NECK: Trachea central, no thyromegaly. LUNGS: Unlabored breathing. Clear to auscultation anteriorly. No wheeze or crackle. HEART: S1, S2, regular rate and rhythm. No loud murmur ABDOMEN: Soft, no tenderness , guarding or rigidity, no organomegaly EXTREMITIES: Diffuse swelling bilateral lower extremity did have a wound on the left posterior leg with surrounding redness no foul-smelling drainage. SKIN: No rash, no masses palpable. NEUROLOGICAL: The patient is awake, alert, oriented x3, mood and affect normal. Results CBC & Chem 7: 02/09/23 06:13 02/09/23 06:13 Labs: Abnormal Lab Results - Last 24 Hours (Table) 02/05/23 02/05/23 02/05/23 Range/Units 19:43 19:43 22:00 APTT (22.0-30.0) sec Sodium 136 L (137-145) mmol/L Potassium (3.5-5.1) mmol/L Glucose 132 H (74-99) mg/dL POC Glucose (mg/dL) (70-110) mg/dL Calcium (8.4-10.2) mg/dL Troponin I 0.539 H* 0.634 H* (0.000-0.034) ng/mL Total Protein 6.1 L (6.3-8.2) g/dL Albumin 3.3 L (3.5-5.0) g/dL Urine Blood (Negative) Ur Leukocyte Esterase (Negative) Urine WBC (0-5) /hpf Urine WBC Clumps (None) /hpf Urine Bacteria (None) /hpf Urine Mucus (None) /hpf 02/05/23 02/05/23 02/06/23 Range/Units 22:18 22:22 04:35 APTT 55.3 H (22.0-30.0) sec Sodium (137-145) mmol/L Potassium (3.5-5.1) mmol/L Glucose (74-99) mg/dL POC Glucose (mg/dL) 121 H (70-110) mg/dL Calcium (8.4-10.2) mg/dL Troponin I (0.000-0.034) ng/mL Total Protein (6.3-8.2) g/dL Albumin (3.5-5.0) g/dL Urine Blood Moderate H (Negative) Ur Leukocyte Esterase Large H (Negative) Urine WBC 44 H (0-5) /hpf Urine WBC Clumps Occasional H (None) /hpf Urine Bacteria Few H (None) /hpf Urine Mucus Rare H (None) /hpf 02/06/23 02/06/23 Range/Units 04:35 04:35 APTT (22.0-30.0) sec Sodium (137-145) mmol/L Potassium 3.4 L (3.5-5.1) mmol/L Glucose (74-99) mg/dL POC Glucose (mg/dL) (70-110) mg/dL Calcium 8.2 L (8.4-10.2) mg/dL Troponin I 0.631 H* (0.000-0.034) ng/mL Total Protein 5.5 L (6.3-8.2) g/dL Albumin 3.0 L (3.5-5.0) g/dL Urine Blood (Negative) Ur Leukocyte Esterase (Negative) Urine WBC (0-5) /hpf Urine WBC Clumps (None) /hpf Urine Bacteria (None) /hpf Urine Mucus (None) /hpf Microbiology - Last 24 Hours (Table) 02/05/23 22:22 Urine Culture - Preliminary Urine,Voided Assessment and Plan (1) Cellulitis of left leg without foot Status: Acute Code(s): L03.116 - CELLULITIS OF LEFT LOWER LIMB SNOMED Code(s): 190100764 Plan: 1patient presented to hospital bilateral lower extremity swelling redness especially involving the left leg in this patient who did have a traumatic wound to the left leg from a wheelchair few days ago now with evidence of cellulitis likely from gram-positive skin laurie less likely gram-negative infection. 2positive UA but no significant urinary symptoms possible asymptomatic bacteriuria. 3marked area of the redness. 4cefazolin 2 g every 8 hours to continue for now and will see clinical response. We will follow on clinical condition and cultures to further adjust medication if needed Thank you for this consultation we will follow the patient along with you Time with Patient: Greater than 30
[2023-02-07] MEDS: PANTOPRAZOLE 40 MG TABLET PO SCH (06:02)
[2023-02-07 06:50] LABS: Basophils # (A) 0.1 k/uL (0-0.2); Basophils % (A) 1 %; Eosinophils # (A) 0.3 k/uL (0-0.7); Eosinophils % (A) 5 %; HGB 11.5 gm/dL (11.4-16.0); Lymphocytes % (A) 37 %; MCH 29.5 pg (25.0-35.0); MCHC 32.8 g/dL (31.0-37.0); MCV 89.8 fL (80.0-100.0); Mean Platelet Volume 8.7; Monocytes # (A) 0.3 k/uL (0-1.0); Monocytes % (A) 6 %; Neutrophils # (A) 2.5 k/uL (1.3-7.7); Neutrophils % (A) 48 %; Platelet Count 229 k/uL (150-450); RDW 13.2 % (11.5-15.5); WBC 5.3 k/uL (3.8-10.6)
[2023-02-07 07:12] LABS: African American GFR (CKD) >90 (>60 ml/min/1.73 sqM); Anion Gap 7 mmol/L; Blood Urea Nitrogen 11 mg/dL (7-17); Carbon Dioxide 27 mmol/L (22-30); Chloride 105 mmol/L (98-107); Glucose 94 mg/dL (74-99); Non-African American GFR(CKD) 83 (>60 ml/min/1.73 sqM); Potassium 3.7 mmol/L (3.5-5.1); Sodium 139 mmol/L (137-145)
--- NOTE | 2023-02-07 08:22 | P.CRDCN ---
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 Presented to the emergency department with complaints of left posterior lower leg wound, bilateral lower leg erythema and edema. She had apparently been on a cruise recently and had an injury to her right foot from dropping a suitcase on it and subsequently injury to bilateral posterior lower legs from [place] an airport. She had significant lower extremity edema. She did complain of some shortness of breath but felt this was related to her asthma as she did have relief with her rescue inhaler. She denied any complaints of chest discomfort, orthopnea or PND. She's had no palpitations, dizziness, lightheadedness or syn cope. She has a history of reflux that is controlled and no complaints of heartburn. EKG on admission showed sinus mechanism with no evidence of acute ischemia. Labs on admission showed NT-proBNP of 2840. Troponins were abnormal at 0.539, 0.634 and 0.631. Vital Signs are stable. There is evidence of infection involving the wound on the left posterior lower leg. She spent initiated on IV antibiotics and ID has been consulted. She is also been started on IV heparin drip. Was given one dose of IV Lasix 20 mg and has had improvement in her lower extremity edema. At the Time of my examination she is lying flat in bed without any distress. Past Medical History Past Medical History: Asthma, CVA/TIA, Deep Vein Thrombosis (DVT), GERD/Reflux, Hypertension, Osteoarthritis (OA) Additional Past Medical History / Comment(s): "mini stroke-no residual",urinary leakage, restless leg syndrome, "thickening in left lung per scan", "lung aneurysm", Hx of Rheumatic Fever, Measles x5 and several occurances of Mumps when she was a child., COVID sep 2021, hx "broken back". History of Any Multi-Drug Resistant Organisms: None Reported Past Surgical History: Hernia Repair, Tonsillectomy, Tubal Ligation Additional Past Surgical History / Comment(s): vein stripping left leg,left carpel tunnel Past Anesthesia/Blood Transfusion Reactions: No Reported Reaction, Motion Sickness Additional Past Anesthesia/Blood Transfusion Reaction / Comment(s): no hx blood transfusion Past Psychological History: Anxiety Smoking Status: Never smoker Past Alcohol Use History: None Reported Past Drug Use History: None Reported - Past Family History Mother Family Medical History: Cancer Additional Family Medical History / Comment(s): Lung cancer Father Family Medical History: Hypertension Medications and Allergies Home Medications Medication Instructions Recorded Confirmed Type ALPRAZolam [Xanax] 0.25 mg PO TID PRN 07/14/16 02/05/23 History Clopidogrel [Plavix] 75 mg PO DAILY 07/14/16 02/05/23 History Citalopram Hydrobromide [CeleXA] 20 mg PO HS 08/17/18 02/05/23 History Omeprazole 40 mg PO BID 08/17/18 02/05/23 History Montelukast Sodium [Singulair] 10 mg PO HS 10/13/21 02/05/23 History Tolterodine Tartrate [Tolterodine 4 mg PO DAILY 10/13/21 02/05/23 History Tartrate ER] amLODIPine [Norvasc] 5 mg PO DAILY 10/13/21 02/05/23 History rOPINIRole HCL [Requip] 0.5 mg PO HS 10/13/21 02/05/23 History Famotidine [Pepcid] 40 mg PO BID 11/17/22 02/05/23 History Albuterol Sulfate [Proventil Hfa] 2 puff INHALATION RT-Q6H PRN 01/04/23 02/05/23 History Celecoxib [CeleBREX] 200 mg PO DAILY 02/05/23 02/05/23 History Pantoprazole [Protonix] 40 mg PO DAILY 02/05/23 02/05/23 History Allergies Allergy/AdvReac Type Severity Reaction Status Date / Time albuterol Allergy Severe Rapid Verified 02/05/23 20:41 Heart Rate,see comment Physical Exam Vitals: Vital Signs Temp Pulse Pulse Resp BP BP Pulse Ox 02/06/23 04:00 98.1 F 78 16 112/70 94 L 02/06/23 03:00 78 18 02/05/23 23:00 97.9 F 78 18 114/63 93 L 02/05/23 22:22 93 L 02/05/23 21:00 74 16 129/65 95 02/05/23 19:00 97.8 F 90 20 124/82 94 L Intake and Output 02/05/23 02/06/23 02/06/23 21:59 06:59 14:59 Other: Voiding Method # Voids Weight PHYSICAL EXAMINATION: This is a 77-year-old female in no apparent distress at the time of my examination. HEENT: Head is atraumatic, normocephalic. Pupils are equal, round. Sclerae anicteric. Conjunctivae are clear. Mucous membranes of the mouth are moist. Neck is supple. There is no elevated jugular venous pressure. No carotid bruit is heard. CHEST EXAMINATION: Clear to auscultation bilaterally. No wheezes rales or rhonchi. Respirations even and nonlabored. HEART EXAMINATION: Heart regular, positive S1 and S2. No S3. S4. Soft systolic murmur at the base. ABDOMEN: Soft, nontender. Bowel sounds are heard. No organomegaly noted. EXTREMITIES: 2+ peripheral pulses with evidence of trace bilateral lower extremity edema, bilateral erythema, wound noted to left posterior lower leg. NEUROLOGIC EXAMINATION: Patient is awake, alert and oriented x3. Results 02/07/23 05:54 02/07/23 05:54 Cardiac Enzymes 02/05/23 02/05/23 02/05/23 Range/Units 19:43 19:43 22:00 AST 30 (14-36) U/L Troponin I 0.539 H* 0.634 H* (0.000-0.034) ng/mL 02/06/23 02/06/23 Range/Units 04:35 04:35 AST 29 (14-36) U/L Troponin I 0.631 H* (0.000-0.034) ng/mL Coagulation 02/05/23 02/06/23 Range/Units 19:43 04:35 PT 10.0 10.7 (9.0-12.0) sec APTT 22.4 55.3 H (22.0-30.0) sec CBC 02/05/23 02/06/23 Range/Units 19:43 04:35 WBC 5.4 4.8 (3.8-10.6) k/uL RBC 4.33 3.93 (3.80-5.40) m/uL Hgb 12.9 11.9 (11.4-16.0) gm/dL Hct 38.8 35.2 (34.0-46.0) % Plt Count 250 238 (150-450) k/uL Comprehensive Metabolic Panel 02/05/23 02/06/23 Range/Units 19:43 04:35 Sodium 136 L 139 (137-145) mmol/L Potassium 3.6 3.4 L (3.5-5.1) mmol/L Chloride 103 105 (98-107) mmol/L Carbon Dioxide 27 28 (22-30) mmol/L BUN 11 10 (7-17) mg/dL Creatinine 0.72 0.66 (0.52-1.04) mg/dL Glucose 132 H 91 (74-99) mg/dL Calcium 8.5 8.2 L (8.4-10.2) mg/dL AST 30 29 (14-36) U/L ALT 18 15 (4-34) U/L Alkaline Phosphatase 104 94 (38-126) U/L Total Protein 6.1 L 5.5 L (6.3-8.2) g/dL Albumin 3.3 L 3.0 L (3.5-5.0) g/dL Current Medications Generic Name Dose Route Start Last Admin Trade Name Freq PRN Reason Stop Dose Admin Acetaminophen 650 mg 02/05/23 21:35 Acetaminophen Tab 325 Mg Tab PO Q6HR PRN Mild Pain or Fever > 100.5 Hydrocodone Bitart/Acetaminophen 1 each 02/05/23 21:35 02/06/23 04:44 Hydrocodone/Apap 5-325mg 1 Each Tab PO 1 each Q4HR PRN Administration Moderate Pain (Scale 4 to 6) Amlodipine Besylate 5 mg 02/06/23 09:00 Amlodipine 5 Mg Tab PO DAILY [facility] Budesonide 0.5 mg 02/06/23 08:00 02/06/23 08:49 Budesonide 0.5 Mg/2 Ml Nebu INHALATION 0.5 mg RT-BID [facility] Administration Clopidogrel Bisulfate 75 mg 02/06/23 09:00 Clopidogrel 75 Mg Tab PO DAILY [facility] Heparin Sodium (Porcine) 0 unit 02/05/23 20:54 Heparin Sodium 1,000 Un/Ml (10ml Vl) IV PER PROTOCOL PRN Low PTT Protocol Heparin Sodium/Sodium Chloride 250 mls @ 9.997 mls/hr 02/05/23 21:00 02/05/23 21:33 25,000 unit/ Sodium Chloride IV 11.6 units/kg/hr .Q24H [facility] 9.997 mls/hr Administration Protocol 11.6 UNITS/KG/HR Cefazolin Sodium 2 gm/ Sodium 50 mls @ 100 mls/hr 02/06/23 08:00 Chloride IVPB Q8HR [facility] Naloxone HCl 0.2 mg 02/05/23 21:35 Naloxone 0.4 Mg/Ml 1 Ml Vial IV Q2M PRN Opioid Reversal Pantoprazole Sodium 40 mg 02/06/23 07:30 Pantoprazole 40 Mg Tablet PO AC-BRKFST [facility] Ropinirole HCl 0.5 mg 02/06/23 21:00 Ropinirole Hcl 0.25 Mg Tab PO HS [facility] Tiotropium Mather 2 puff 02/07/23 07:00 Tiotropium 2.5 Mcg Inhaler INHALATION RT-DAILY PRN Shortness Of Breath Or Wheezing Intake and Output 02/05/23 02/06/23 02/06/23 21:59 06:59 14:59 Other: Voiding Method # Voids Weight 02/06/23 04:35 02/06/23 04:35 EKG Interpretations (text) Sinus rhythm Assessment and Plan Assessment: 1 Acute congestive heart failure, LV systolic function is unknown at this time 2 non-ST elevation IL 3 hypertension 4 infected left lower leg wound with evidence of cellulitis 5. Remote history of TIA Plan: From cardiology's perspective will obtain a 2-D echo with Doppler study to assess cardiac structure and function. We will discontinue amlodipine. Start the patient on beta khanh. Repeat the EKG. Continue IV heparin for another 24 hours. The patient may require cardiac catheterization however we favor waiting until cellulitis has cleared. We will continue to follow the patient and provide further recommendations accordingly. QUILT SEWER note has been reviewed, I agree with a documented findings and plan of care. Patient was seen and examined.
--- NOTE | 2023-02-07 08:44 | P.PN ---
Subjective Progress Note Date: 02/07/23 Principal diagnosis: Left leg wound This is a 77-year-old female who was recently on a cruise and had a wheelchair hit the back of her left leg and since has developed cellulitis and mild lower leg edema. On admission patient's troponins were elevated and cardiology has been consulted. Patient does admit some mild shortness of breath and fatigue. She is currently maintained on heparin drip. Infectious disease has been consult consulted and she is maintained on cefazolin. Objective - Vital Signs Vital signs: Vital Signs Temp 97.9 F 02/07/23 03:21 Pulse 76 02/07/23 03:21 Resp 18 02/07/23 03:21 BP 127/75 02/07/23 03:21 Pulse Ox 95 02/07/23 03:21 FiO2 Intake & Output 02/06/23 02/07/23 02/07/23 18:59 06:59 18:59 Intake Total 476 223.6 Output Total 450 Balance 26 223.6 Weight 89.5 kg Intake: Intake, IV Titration 223.6 Amount Heparin Sod,Pork in 0.45% 223.6 NaCl 25,000 unit In 0.45 % NaCl 1 250ml.bag @ 11.6 UNITS/KG/HR 9.997 mls/hr IV .Q24H [facility] Rx#: [id number] Oral 476 Output: Urine 450 Other: Voiding Method Bedside Commode Toilet Diaper Diaper # Voids 1 2 # Bowel Movements 1 - Constitutional General appearance: Present: cooperative, no acute distress - EENT Eyes: Present: EOMI, PERRLA - Neck Neck: Present: normal ROM. Absent: lymphadenopathy, rigidity - Respiratory Respiratory: bilateral: CTA - Cardiovascular Rhythm: regular Heart sounds: normal: S1, S2 - Gastrointestinal General gastrointestinal: Present: soft. Absent: tenderness - Integumentary Integumentary Comment(s): Wound to left posterior lower leg with surrounding erythema - Psychiatric Psychiatric: Present: A&O x's 3, appropriate affect, intact judgment & insight - Labs CBC & Chem 7: 02/07/23 05:54 02/07/23 05:54 Labs: Abnormal Lab Results - Last 24 Hours (Table) 02/07/23 02/07/23 Range/Units 05:54 05:54 APTT 55.3 H (22.0-30.0) sec Calcium 8.0 L (8.4-10.2) mg/dL Microbiology - Last 24 Hours (Table) 02/05/23 22:22 Urine Culture - Preliminary Urine,Voided Assessment and Plan (1) Cellulitis of left leg without foot Current Visit: Yes Status: Acute Code(s): L03.116 - CELLULITIS OF LEFT LOWER LIMB SNOMED Code(s): 595238615 (2) CHF (congestive heart failure) Current Visit: Yes Status: Acute Code(s): I50.9 - HEART FAILURE, UNSPECIFIED SNOMED Code(s): 08635262 (3) NSTEMI (non-ST elevated myocardial infarction) Current Visit: Yes Status: Acute Code(s): I21.4 - NON-ST ELEVATION (NSTEMI) MYOCARDIAL INFARCTION SNOMED Code(s): 51149723 (4) Hypertension Current Visit: No Status: Acute Code(s): I10 - ESSENTIAL (PRIMARY) HYPERTENSION SNOMED Code(s): 92546998 Plan: Check CBC and CMP in the morning. Continue IV antibiotics and follow recommendations from infectious disease. Cardiology has ordered an echo. Patient seen and evaluated by nurse practitioner, physician in agreement with plan
[2023-02-07] MEDS: METOPROLOL TARTRATE 25 MG TAB PO SCH ×2 (09:24→20:16)
[2023-02-07] MEDS: CLOPIDOGREL 75 MG TAB PO SCH (09:24)
[2023-02-07] MEDS: ATORVASTATIN 40 MG TAB PO SCH (09:24)
[2023-02-07] MEDS: ASPIRIN 81 MG PO SCH (09:24)
--- NOTE | 2023-02-07 10:58 | CA ---
Transthoracic Echo Report Name: Ana Avery Age: 77 Gender: F : 1945 Exam Date: 02/07/2023 07:48 Exam Location: [facility] Ht (in): 66 Wt (lb): 197 Ordering Physician: Claude Arreguin MD Attending/Referring Phys: [id number], [employer] Ethel Estrada, JAZMIN Procedure CPT: Indications: Rule out heart disease Cardiac Hx: Technical Quality: Fair Contrast 1: Total Dose (mL): Contrast 2: Total Dose (mL): MEASUREMENTS (Male / Female) Normal Values 2D ECHO LV Diastolic Diameter PLAX 4.2 cm 4.2 - 5.9 / 3.9 - 5.3 cm LV Systolic Diameter PLAX 3.3 cm IVS Diastolic Thickness 1.4 cm 0.6 - 1.0 / 0.6 - 0.9 cm LVPW Diastolic Thickness 1.3 cm 0.6 - 1.0 / 0.6 - 0.9 cm LV Relative Wall Thickness 0.6 RV Internal Dim ED PLAX 3.1 cm LA Systolic Diameter LX 3.6 cm 3.0 - 4.0 / 2.7 - 3.8 cm LV Diastolic Volume MOD BP 75.0 cm??? 67 - 155 / 56 - 104 cm??? LV Systolic Volume MOD BP 50.6 cm??? 22 - 58 / 19 - 49 cm??? LV Ejection Fraction MOD BP 32.5 % >= 55 % LV Diastolic Volume MOD 4C 69.3 cm??? LV Systolic Volume MOD 4C 38.5 cm??? LV Ejection Fraction MOD 4C 44.4 % LV Diastolic Length 4C 7.7 cm LV Systolic Length 4C 6.8 cm LV Diastolic Volume MOD 2C 80.6 cm??? LV Systolic Volume MOD 2C 58.6 cm??? LV Ejection Fraction MOD 2C 27.3 % LV Diastolic Length 2C 7.9 cm LV Systolic Length 2C 7.8 cm M-MODE Aortic Root Diameter MM 3.4 cm MV E Point Septal Separation 1.0 cm AV Cusp Separation MM 2.3 cm DOPPLER AV Peak Velocity 132.0 cm/s AV Peak Gradient 7.0 mmHg AI Peak Velocity 412.7 cm/s AI Peak Gradient 68.1 mmHg AI Pressure Half Time 581.3 ms MV Area PHT 2.8 cm??? Mitral E Point Velocity 66.4 cm/s Mitral A Point Velocity 124.1 cm/s Mitral E to A Ratio 0.5 MV Deceleration Time 270.4 ms MV E' Velocity 4.4 cm/s Mitral E to MV E' Ratio 15.3 TR Peak Velocity 285.3 cm/s TR Peak Gradient 32.5 mmHg Right Ventricular Systolic Press 37.0 mmHg FINDINGS Left Ventricle Left ventricular ejection fraction is estimated at 35-40 %. Left ventricular cavity size normal. Moderate concentric left ventricular hypertrophy. Apical anterior hypokinesis, apical septal hypokinesis, apical lateral hypokinesis, apical inferior hypokinesis Right Ventricle Normal right ventricular size and function. Mild pulmonary hypertension. Right Atrium Normal right atrial size. Left Atrium Normal left atrial size. Mitral Valve Mitral valve thickened. Mitral annular calcification. No mitral stenosis, regurgitation or prolapse. Aortic Valve Trileaflet aortic valve. Focal thickening of the aortic valve cusps. Mild aortic regurgitation. Tricuspid Valve Structurally normal tricuspid valve. Mild tricuspid regurgitation. Pulmonic Valve Structurally normal pulmonic valve. No pulmonic regurgitation. Pericardium Normal pericardium. No pericardial effusion. Aorta Normal size aortic root and proximal ascending aorta. CONCLUSIONS Impaired LV systolic function with EF between 35-40% with mid ventricle and apical hypokinesia Aortic sclerosis with no stenosis and with mild insufficiency Mitral annular calcification with mild mitral regurgitation Previewed by: Dr. Aden Santos MD (Electronically Signed) Final Date: 07 February 2023 10:57
--- NOTE | 2023-02-07 11:53 | P.PN ---
Subjective Progress Note Date: 02/07/23 Principal diagnosis: Bilateral lower extremity cellulitis left greater than right Patient is a 77 year old female with multiple comorbidities presented to the hospital with increasing swelling redness to bilateral lower extremity/the left leg with the patient did have a traumatic laceration before her symptoms started on today's evaluation that is 02/07/2023, the patient denies having any fever or any chills, the patient pain to the lower simply slightly decreased intensity, denies any chest pain shortness breath or cough no abdominal pain or diarrhea Objective - Vital Signs Vital signs: Vital Signs Temp 98.1 F 02/07/23 08:00 Pulse 76 02/07/23 08:00 Resp 18 02/07/23 08:00 BP 125/67 02/07/23 08:00 Pulse Ox 93 L 02/07/23 08:00 FiO2 Intake & Output 02/06/23 02/07/23 02/07/23 18:59 06:59 18:59 Intake Total 476 223.6 Output Total 450 Balance 26 223.6 Weight 89.5 kg Intake: Intake, IV Titration 223.6 Amount Heparin Sod,Pork in 0.45% 223.6 NaCl 25,000 unit In 0.45 % NaCl 1 250ml.bag @ 11.6 UNITS/KG/HR 9.997 mls/hr IV .Q24H [facility] Rx#: [id number] Oral 476 Output: Urine 450 Other: Voiding Method Bedside Commode Toilet Toilet Diaper Diaper Diaper # Voids 1 2 # Bowel Movements 1 - Exam GENERAL DESCRIPTION: An elderly female up in the chair in no distress RESPIRATORY SYSTEM: Unlabored breathing , decreased breath sounds at bases HEART: S1 S2 regular rate and rhythm , ABDOMEN: Soft , no tenderness EXTREMITIES: Bilateral lower extremity with swelling redness especially the left leg and a wound on the posterior leg - Labs CBC & Chem 7: 02/07/23 05:54 02/07/23 05:54 Labs: Abnormal Lab Results - Last 24 Hours (Table) 02/07/23 02/07/23 Range/Units 05:54 05:54 APTT 55.3 H (22.0-30.0) sec Calcium 8.0 L (8.4-10.2) mg/dL Microbiology - Last 24 Hours (Table) 02/05/23 22:22 Urine Culture - Preliminary Urine,Voided Gram Neg Bacilli Assessment and Plan (1) Cellulitis of left leg without foot Current Visit: Yes Status: Acute Code(s): L03.116 - CELLULITIS OF LEFT LOWER LIMB SNOMED Code(s): 521688258 Plan: 1patient presented to hospital bilateral lower extremity swelling redness especially involving the left leg in this patient who did have a traumatic wound to the left leg from a wheelchair few days ago now with evidence of cellulitis likely from gram-positive skin laurie less likely gram-negative infection. 2positive UA but no significant urinary symptoms possible asymptomatic bacteriuria. 3nursing staff has been advised to apply Ruben wrap to keep the swelling down 4patient to continue cefazolin 2 g every 8 hours and monitor clinical course closely Time with Patient: Less than 30
[2023-02-07] MEDS: TIOTROPIUM 2.5 MCG INHALER INHALATION PRN (12:15)
[2023-02-07] MEDS: BUDESONIDE 0.5 MG/2 ML NEBU INHALATION SCH ×2 (12:15→20:52)
[2023-02-07] MEDS: HYDROcodone/APAP 5-325MG 1 EACH TAB PO PRN (15:05)
[2023-02-07] MEDS: ALPRAZolam 0.25 MG TAB PO PRN (20:16)
[2023-02-07] MEDS: HEPARIN SOD,PORK IN 0.45% NACL 25,000 UNIT in 0.45% NACL 1 250ML.BAG IV SCH (20:19)
--- NOTE | 2023-02-07 21:57 | PN ---
PROGRESS NOTE SUBJECTIVE: Ms. Avery presented to the hospital with cellulitis, has active infection, on IV antibiotics. EKG revealed precordial T-wave inversion. She did not have any chest pain. Echo revealed multiple wall motion abnormalities, almost looks like an apical ballooning syndrome. Troponin elevation is noted. Clinical picture is that of a non- ST-elevation NC, but apical ballooning syndrome cannot be excluded. I will check some blood cultures to make sure there is no bacteremia, and if so, we can consider cardiac catheterization after we evaluate this. Renal function is good so far. Vitals are stable. The patient does not have any chest pain or shortness of breath. EKG revealed precordial T-wave inversion. OBJECTIVE: VITAL SIGNS: Stable. HEART: S1 and S2 heard normally. LUNGS: Clear lungs. ABDOMEN: Soft. LOWER EXTREMITIES: Reveal area of cellulitis appears to be less inflamed today. PLAN: To continue same medications. Check blood cultures, and based on clinical course, we will make further recommendations. MMODL / IJN: [id number] /
[2023-02-08 06:09] LABS: Basophils % (A) 1 %; Eosinophils # (A) 0.2 k/uL (0-0.7); Eosinophils % (A) 4 %; HCT 33.1 % (34.0-46.0); HGB 11.1 gm/dL (11.4-16.0); Lymphocytes # (A) 2.1 k/uL (1.0-4.8); Lymphocytes % (A) 41 %; MCH 30.1 pg (25.0-35.0); MCHC 33.5 g/dL (31.0-37.0); Mean Platelet Volume 8.6; Monocytes # (A) 0.3 k/uL (0-1.0); Monocytes % (A) 6 %; Neutrophils # (A) 2.4 k/uL (1.3-7.7); Neutrophils % (A) 47 %; Platelet Count 205 k/uL (150-450); RBC 3.68 m/uL (3.80-5.40); RDW 13.3 % (11.5-15.5); WBC 5.2 k/uL (3.8-10.6)
[2023-02-08] MEDS: PANTOPRAZOLE 40 MG TABLET PO SCH (06:14)
[2023-02-08] MEDS ORDERED: FUROSEMIDE 10 MG/ML 2 ML VIAL IV ONE (06:27)
[2023-02-08 06:33] LABS: ALT 11 U/L (4-34); AST 22 U/L (14-36); African American GFR (CKD) >90 (>60 ml/min/1.73 sqM); Albumin 2.7 g/dL (3.5-5.0); Alkaline Phosphatase 85 U/L (38-126); Anion Gap 3 mmol/L; Blood Urea Nitrogen 11 mg/dL (7-17); Calcium 7.8 mg/dL (8.4-10.2); Carbon Dioxide 29 mmol/L (22-30); Chloride 107 mmol/L (98-107); Glucose 95 mg/dL (74-99); Non-African American GFR(CKD) 85 (>60 ml/min/1.73 sqM); Potassium 3.6 mmol/L (3.5-5.1); Sodium 139 mmol/L (137-145); Total Bilirubin 0.4 mg/dL (0.2-1.3); Total Protein 5.1 g/dL (6.3-8.2)
[2023-02-08] MEDS: BUDESONIDE 0.5 MG/2 ML NEBU INHALATION SCH ×2 (08:42→21:12)
[2023-02-08] MEDS: TIOTROPIUM 2.5 MCG INHALER INHALATION PRN (08:42)
--- NOTE | 2023-02-08 08:49 | P.PN ---
Subjective Progress Note Date: 02/08/23 Principal diagnosis: Left leg wound This is a 77-year-old female who was recently on a cruise and had a wheelchair hit the back of her left leg and since has developed cellulitis and mild lower leg edema. On admission patient's troponins were elevated and cardiology has been consulted. Patient does admit some mild shortness of breath and fatigue. She is currently maintained on heparin drip. Infectious disease has been consult consulted and she is maintained on cefazolin. 02/08/2023 Patient is seen laying in bed this morning. She has Ruben wraps applied to bilateral legs. Ruben wraps removed and erythema has decreased. Patient reports pain is slightly improved as well. She is maintained on IV cefazolin Objective - Vital Signs Vital signs: Vital Signs Temp 97.4 F L 02/08/23 03:43 Pulse 75 02/08/23 03:43 Resp 16 02/08/23 03:43 BP 126/69 02/08/23 03:43 Pulse Ox 91 L 02/08/23 03:43 FiO2 Intake & Output 02/07/23 02/08/23 02/08/23 18:59 06:59 18:59 Intake Total 118 334.233 Balance 118 334.233 Weight 88.6 kg Intake: Intake, IV Titration 334.233 Amount Heparin Sod,Pork in 0.45% 334.233 NaCl 25,000 unit In 0.45 % NaCl 1 250ml.bag @ 11.6 UNITS/KG/HR 9.997 mls/hr IV .Q24H [facility] Rx#: [id number] Oral 118 Other: Voiding Method Toilet Toilet Diaper Diaper # Voids 2 1 - Constitutional General appearance: Present: cooperative, no acute distress - EENT Eyes: Present: EOMI, PERRLA - Neck Neck: Present: normal ROM. Absent: lymphadenopathy, rigidity - Respiratory Respiratory: bilateral: CTA - Cardiovascular Rhythm: regular Heart sounds: normal: S1, S2 - Gastrointestinal General gastrointestinal: Present: soft. Absent: tenderness - Integumentary Integumentary Comment(s): Improving erythema to left lower leg - Psychiatric Psychiatric: Present: A&O x's 3, appropriate affect, intact judgment & insight - Labs CBC & Chem 7: 02/08/23 05:33 02/08/23 05:33 Labs: Abnormal Lab Results - Last 24 Hours (Table) 02/08/23 02/08/23 02/08/23 Range/Units 05:33 05:33 05:33 RBC 3.68 L (3.80-5.40) m/uL Hgb 11.1 L (11.4-16.0) gm/dL Hct 33.1 L (34.0-46.0) % APTT 51.7 H (22.0-30.0) sec Calcium 7.8 L (8.4-10.2) mg/dL Total Protein 5.1 L (6.3-8.2) g/dL Albumin 2.7 L (3.5-5.0) g/dL Microbiology - Last 24 Hours (Table) 02/05/23 22:22 Urine Culture - Preliminary Urine,Voided Gram Neg Bacilli Assessment and Plan (1) Cellulitis of left leg without foot Current Visit: Yes Status: Acute Code(s): L03.116 - CELLULITIS OF LEFT LOWER LIMB SNOMED Code(s): 999311571 (2) CHF (congestive heart failure) Current Visit: Yes Status: Acute Code(s): I50.9 - HEART FAILURE, UNSPECIFIED SNOMED Code(s): 30638711 (3) NSTEMI (non-ST elevated myocardial infarction) Current Visit: Yes Status: Acute Code(s): I21.4 - NON-ST ELEVATION (NSTEMI) MYOCARDIAL INFARCTION SNOMED Code(s): 29150683 (4) Hypertension Current Visit: No Status: Acute Code(s): I10 - ESSENTIAL (PRIMARY) HYPERTENSION SNOMED Code(s): 33288812 Plan: Check CBC and CMP in the morning. Continue IV antibiotics and follow recommendations from infectious disease. Anticipate discharge in the next 24-48 hours. Patient seen and evaluated by nurse practitioner, physician in agreement with plan
[2023-02-08] MEDS: ATORVASTATIN 40 MG TAB PO SCH (09:08)
[2023-02-08] MEDS: CLOPIDOGREL 75 MG TAB PO SCH (09:08)
[2023-02-08] MEDS: ASPIRIN 81 MG PO SCH (09:08)
[2023-02-08] MEDS: METOPROLOL TARTRATE 25 MG TAB PO SCH ×2 (09:08→21:21)
--- NOTE | 2023-02-08 12:28 | P.PN ---
Subjective Progress Note Date: 02/08/23 Principal diagnosis: Bilateral lower extremity cellulitis left greater than right Patient is a 77 year old female with multiple comorbidities presented to the hospital with increasing swelling redness to bilateral lower extremity/the left leg with the patient did have a traumatic laceration before her symptoms started on today's evaluation that is 02/08/2023, the patient remains to be febrile, the patient pain to the lower extremity has decreased intensity, the patient denies any chest pain shortness breath however has been complaining of some dry cough no abdominal pain or diarrhea Objective - Vital Signs Vital signs: Vital Signs Temp 97.4 F L 02/08/23 03:43 Pulse 72 02/08/23 08:51 Resp 16 02/08/23 08:00 BP 137/79 02/08/23 08:00 Pulse Ox 95 02/08/23 08:00 FiO2 Intake & Output 02/07/23 02/08/23 02/08/23 18:59 06:59 18:59 Intake Total 118 334.233 120 Balance 118 334.233 120 Weight 88.6 kg Intake: Intake, IV Titration 334.233 Amount Heparin Sod,Pork in 0.45% 334.233 NaCl 25,000 unit In 0.45 % NaCl 1 250ml.bag @ 11.6 UNITS/KG/HR 9.997 mls/hr IV .Q24H [facility] Rx#: [id number] Oral 118 120 Other: Voiding Method Toilet Toilet Toilet Diaper Diaper Diaper # Voids 2 1 2 - Exam GENERAL DESCRIPTION: An elderly female up in the chair in no distress RESPIRATORY SYSTEM: Unlabored breathing , decreased breath sounds at bases HEART: S1 S2 regular rate and rhythm , ABDOMEN: Soft , no tenderness EXTREMITIES: Bilateral lower extremity with swelling redness especially the left leg and a wound on the posterior leg - Labs CBC & Chem 7: 02/08/23 05:33 02/08/23 05:33 Labs: Abnormal Lab Results - Last 24 Hours (Table) 02/08/23 02/08/23 02/08/23 Range/Units 05:33 05:33 05:33 RBC 3.68 L (3.80-5.40) m/uL Hgb 11.1 L (11.4-16.0) gm/dL Hct 33.1 L (34.0-46.0) % APTT 51.7 H (22.0-30.0) sec Calcium 7.8 L (8.4-10.2) mg/dL Total Protein 5.1 L (6.3-8.2) g/dL Albumin 2.7 L (3.5-5.0) g/dL Microbiology - Last 24 Hours (Table) 02/05/23 22:22 Urine Culture - Preliminary Urine,Voided Klebsiella pneumoniae Assessment and Plan (1) Cellulitis of left leg without foot Current Visit: Yes Status: Acute Code(s): L03.116 - CELLULITIS OF LEFT LOWER LIMB SNOMED Code(s): 869825445 Plan: 1patient presented to hospital bilateral lower extremity swelling redness especially involving the left leg in this patient who did have a traumatic wound to the left leg from a wheelchair few days ago now with evidence of cellulitis likely from gram-positive skin laurie less likely gram-negative infection. 2positive UA but no significant urinary symptoms possible asymptomatic bacteriuria, the urine culture currently growing Klebsiella that is sensitive to cefazolin 3patient to continue with Ruben wrap to keep the swelling down 4patient to continue cefazolin 2 g every 8 hours and plan to finish therapy with oral Keflex
[2023-02-08] MEDS: ALPRAZolam 0.25 MG TAB PO PRN (21:28)
--- NOTE | 2023-02-08 21:54 | PN ---
PROGRESS NOTE SUBJECTIVE: Ms. Avery is doing well. 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 However, she has gram-negative bacilli in the urine. Blood cultures are still pending. I am recommending that we continue treating with antibiotics. No cardiac catheterization, but upon discharge, she will come back and see Dr. Alonso in 2 weeks and will consider repeat echo and/or cardiac catheterization at that time. OBJECTIVE: VITAL SIGNS: Stable. HEART: S1 and S2 heard normally. LUNGS: Clear. ABDOMEN: Unchanged. LOWER EXTREMITIES: Unchanged. MMODL / IJN: [id number] /
[2023-02-09] MEDS: HEPARIN SOD,PORK IN 0.45% NACL 25,000 UNIT in 0.45% NACL 1 250ML.BAG IV SCH (01:03)
[2023-02-09 06:10] VITALS: TEMP 97.7
[2023-02-09] MEDS: PANTOPRAZOLE 40 MG TABLET PO SCH (06:31)
[2023-02-09 07:53] LABS: HCT 36.1 % (34.0-46.0); HGB 11.8 gm/dL (11.4-16.0); MCH 29.9 pg (25.0-35.0); MCHC 32.6 g/dL (31.0-37.0); MCV 91.9 fL (80.0-100.0); Platelet Count 265 k/uL (150-450); RBC 3.93 m/uL (3.80-5.40); RDW 13.2 % (11.5-15.5); WBC 7.8 k/uL (3.8-10.6)
[2023-02-09] MEDS: TIOTROPIUM 2.5 MCG INHALER INHALATION PRN (07:57)
[2023-02-09] MEDS: BUDESONIDE 0.5 MG/2 ML NEBU INHALATION SCH (07:57)
[2023-02-09 08:12] LABS: ALT 11 U/L (4-34); AST 22 U/L (14-36); African American GFR (CKD) >90 (>60 ml/min/1.73 sqM); Albumin 3.2 g/dL (3.5-5.0); Alkaline Phosphatase 106 U/L (38-126); Anion Gap 6 mmol/L; Blood Urea Nitrogen 10 mg/dL (7-17); Calcium 8.4 mg/dL (8.4-10.2); Carbon Dioxide 28 mmol/L (22-30); Chloride 106 mmol/L (98-107); Glucose 92 mg/dL (74-99); Non-African American GFR(CKD) 82 (>60 ml/min/1.73 sqM); Potassium 3.9 mmol/L (3.5-5.1); Sodium 140 mmol/L (137-145); Total Bilirubin 0.6 mg/dL (0.2-1.3); Total Protein 5.9 g/dL (6.3-8.2)
--- NOTE | 2023-02-09 08:28 | P.DS ---
Providers Date of admission: 02/05/23 20:46 Attending physician: Anmol Rey Consults: 02/05/23 21:35 Consult Physician Urgent Consulting Provider: [facility] Consult Reason/Comments: CHF, NSTEMI Do you want consulting provider notified?: Yes 02/06/23 07:30 Consult Physician Routine Consulting Provider: Abran Arce Consult Reason/Comments: Right leg cellulitis and ulcer Do you want consulting provider notified?: Yes Primary care physician: Anmol Rey Hospital Course: This is a discharge summary 77-year-old white female who came in with lower extremity cellulitis on left. Right. The patient also had significant troponin elevation. Cardiology and pulmonology were consulted. Workup was nominal. She is placed on appropriate Kefzol and did quite well. The white count tolerating dietsignificant diarrhea. Cellulitis with significant improvement. She was injured by inadvertent wheelchair and she'll when she was on vacation. The patient is now discharged stable condition to follow-up with me in about 5-7 days. Patient Condition at Discharge: Stable Plan - Discharge Summary Discharge Rx Participant: Yes New Discharge Prescriptions: New Atorvastatin [Lipitor] 40 mg PO DAILY #30 tab Metoprolol Tartrate [Lopressor] 25 mg PO BID #60 tab Tiotropium 2.5 Mcg/Puff [Spiriva Respimat 2.5 Mcg] 2 puff INHALATION RT-DAILY PRN #1 each PRN Reason: Shortness Of Breath Or Wheezing Cephalexin [Keflex] 500 mg PO Q6HR 7 Days #28 cap Continue ALPRAZolam [Xanax] 0.25 mg PO TID PRN PRN Reason: Anxiety Clopidogrel [Plavix] 75 mg PO DAILY Omeprazole 40 mg PO BID Citalopram Hydrobromide [CeleXA] 20 mg PO HS Tolterodine Tartrate [Tolterodine Tartrate ER] 4 mg PO DAILY Montelukast Sodium [Singulair] 10 mg PO HS Famotidine [Pepcid] 40 mg PO BID Celecoxib [CeleBREX] 200 mg PO DAILY Pantoprazole [Protonix] 40 mg PO DAILY rOPINIRole HCL [Requip] 0.5 mg PO HS amLODIPine [Norvasc] 5 mg PO DAILY #30 tab Discontinued Albuterol Sulfate [Proventil Hfa] 2 puff INHALATION RT-Q6H PRN PRN Reason: Shortness Of Breath Or Wheezing Discharge Medication List ALPRAZolam [Xanax] 0.25 mg PO TID PRN 07/14/16 [History] Clopidogrel [Plavix] 75 mg PO DAILY 07/14/16 [History] Citalopram Hydrobromide [CeleXA] 20 mg PO HS 08/17/18 [History] Omeprazole 40 mg PO BID 08/17/18 [History] Montelukast Sodium [Singulair] 10 mg PO HS 10/13/21 [History] Tolterodine Tartrate [Tolterodine Tartrate ER] 4 mg PO DAILY 10/13/21 [History] rOPINIRole HCL [Requip] 0.5 mg PO HS 10/13/21 [History] Famotidine [Pepcid] 40 mg PO BID 11/17/22 [History] Celecoxib [CeleBREX] 200 mg PO DAILY 02/05/23 [History] Pantoprazole [Protonix] 40 mg PO DAILY 02/05/23 [History] Atorvastatin [Lipitor] 40 mg PO DAILY #30 tab 02/09/23 [Rx] Cephalexin [Keflex] 500 mg PO Q6HR 7 Days #28 cap 02/09/23 [Rx] Metoprolol Tartrate [Lopressor] 25 mg PO BID #60 tab 02/09/23 [Rx] Tiotropium 2.5 Mcg/Puff [Spiriva Respimat 2.5 Mcg] 2 puff INHALATION RT-DAILY PRN #1 each 02/09/23 [Rx] amLODIPine [Norvasc] 5 mg PO DAILY #30 tab 02/09/23 [Rx] Follow up Appointment(s)/Referral(s): Anmol Rey MD [Primary Care Provider] - 1 Week Discharge Disposition: HOME SELF-CARE
[2023-02-09] MEDS: ATORVASTATIN 40 MG TAB PO SCH (08:29)
[2023-02-09] MEDS: CLOPIDOGREL 75 MG TAB PO SCH (08:29)
[2023-02-09] MEDS: ASPIRIN 81 MG PO SCH (08:29)
[2023-02-09] MEDS: METOPROLOL TARTRATE 25 MG TAB PO SCH (08:29)
[2023-02-09 08:32] VITALS: BP 126/76; PULSE 74; RESP 16
--- NOTE | 2023-02-09 09:00 | CDI ---
Documentation Clarification Form Date: 02/09/2023 From: Aviva Byrd Phone: [phone] Admit Date: 02/05/2023 8:46:00 PM Patient Name: Ana Avery Visit Number: [id number] Discharge Date: ATTENTION: The Clinical Documentation Specialists (CDI) and [facility] Coding Staff appreciate your assistance in clarifying documentation. Please respond to the clarification below the line at the bottom and electronically sign. The CDI & [facility] Coding staff will review the response and follow-up if needed. Please note: Queries are made part of the Legal Health Record. If you have any questions, please contact the author of this message via ITS. Dr. Lauren Frias Your patient has the documented diagnosis of Acute congestive heart failure in the cardiology consult on 02/07. Additional information regarding the acuity and type of CHF is requested. History/Risk Factors: 77yo presented w/ NSTEMI, cellulitis and acute exacerbation of CHF per the ER notes. Clinical Indicators: pt reports shortness of breath, B/L LE edema on admission BNP 02/05: 2840 Echocardiogram Results 02/07: EF 35-40%, mild concentric LVH, apical anterior/apical septal/apical lateral/apical inferior wall hypokinesis Chest X Ray 02/05: minimal subsegmental atelectasis or scarring in the left mid lung Treatment: Lasix IV x4 doses In your professional opinion, can you please clarify the acuity and type of CHF if known? [ ] Acute Systolic Heart Failure (reduced EF) [ ] Chronic Systolic Heart Failure (reduced EF) [ ] Acute on Chronic Systolic Heart Failure (reduced EF) [ ] Acute Diastolic Heart Failure (preserved EF) [ ] Chronic Diastolic Heart Failure (preserved EF) [ ] Acute on Chronic Diastolic Heart Failure (preserved EF) [ ] Other, please specify [ ] Unable to determine (Template Last Revised: December 2020) No CHF MTDD
--- NOTE | 2023-02-09 09:59 | PN ---
PROGRESS NOTE SUBJECTIVE: Mrs. Avery is in sinus rhythm, comfortable, doing well. No evidence of heart failure. She has a troponin elevation and echo suggestive of apical ballooning syndrome. I am recommending that upon discharge she should see Dr. Fields in 1 week. She does have Klebsiella growing in the urine, but blood cultures are negative so far. OBJECTIVE: VITAL SIGNS: Stable. NECK: No JVD. HEART: S1 and S2 heard normally. Short systolic murmur. LUNGS: Clear lungs. ABDOMEN: Soft. LOWER EXTREMITIES: Unchanged. MMODL / IJN: [id number] /
== END 2023-02-09 10:14 | disposition home or self-care (01) | DRG 602 ==
LOC: EC 18:58 → 3SCARD 20:46
PROVIDERS: ADMIT Family Medicine; ATTEND Family Medicine
DX: L03.116 Cellulitis of left lower limb (principal); I21.4 Non-ST elevation (NSTEMI) myocardial infarction; I51.81 Takotsubo syndrome; J45.901 Unspecified asthma with (acute) exacerbation; L97.229 Non-pressure chronic ulcer of left calf with unspecified severity; L03.115 Cellulitis of right lower limb; S80.821A Blister (nonthermal), right lower leg, initial encounter; S40.029A Contusion of unspecified upper arm, initial encounter; K21.9 Gastro-esophageal reflux disease without esophagitis; R82.71 Bacteriuria; B96.1 Klebsiella pneumoniae [K. pneumoniae] as the cause of diseases classified elsewhere; G25.81 Restless legs syndrome; I10 Essential (primary) hypertension; R32 Unspecified urinary incontinence; E66.9 Obesity, unspecified; Z68.31 Body mass index [BMI] 31.0-31.9, adult; I71.23 Aneurysm of the descending thoracic aorta, without rupture; R79.1 Abnormal coagulation profile; M19.90 Unspecified osteoarthritis, unspecified site; F41.9 Anxiety disorder, unspecified; Z28.310 Unvaccinated for COVID-19; Z88.8 Allergy status to other drugs, medicaments and biological substances; Z86.73 Personal history of transient ischemic attack (TIA), and cerebral infarction without residual deficits; Z86.718 Personal history of other venous thrombosis and embolism; Z79.899 Other long term (current) drug therapy; Z79.1 Long term (current) use of non-steroidal anti-inflammatories (NSAID); Z79.02 Long term (current) use of antithrombotics/antiplatelets; Z86.16 Personal history of COVID-19
CPT/HCPCS: 36415; 71046; 80048; 80053; 81001; 83605; 83735; 83880; 84484; 85025; 85027; 85610; 85730; 87040; 87077; 87086; 87186; 93005; 93306; 93970; 94640; 96374; 96375; 99285

== ENCOUNTER → 2023-10-21 | Outpatient (CLI) | payer MEDICARE ==
[2023-10-21 14:00] LABS: African American GFR (CKD) 68 (>60 ml/min/1.73 sqM); Blood Urea Nitrogen 18 mg/dL (7-17); Non-African American GFR(CKD) 59 (>60 ml/min/1.73 sqM)
--- NOTE | 2023-10-21 15:07 | CT ---
EXAMINATION TYPE: CT angio chest CT DLP: 669.1 mGycm, Automated exposure control for dose reduction was used. DATE OF EXAM: 10/21/2023 2:53 PM COMPARISON: 11/17/2022 CLINICAL INDICATION:Female, 78 years old with history of I71.20 Thoracic Aortic Aneurysm; Thoracic a ortic aneurysm. TECHNIQUE/CONTRAST: CTA scan of the thorax is performed with IV Contrast, patient injected with 80 ml mL of Isovue 370, M IP images are created and reviewed these are created on a separate workstation. FINDINGS: Lungs/Pleura: No evidence of focal consolidation, pleural effusion or pneumothorax. Scattered streaky atelectasis and/or scarring. Nodular changes anteriorly in the right midlung are unchanged. Pulmonar y nodules scattered throughout the lungs seen on prior on 11/17/2022 are thought to be similar. No samuels spicious enlarging pulmonary nodules. Airway: Large airways are patent. Heart: The heart is mildly enlarged for size. Moderate coronary artery atherosclerosis. Vasculature: No evidence for intramural hematoma on noncontrast imaging. No evidence of intimal flap to suggest dissection. No aneurysm identified. Scattered atherosclerotic disease. The ascending and d escending thoracic aorta is within normal limits for size. The major vessels of the abdominal aorta a re patent. Mediastinum: No gross evidence of adenopathy. Musculoskeletal: No acute osseous abnormalities Soft Tissues: Unremarkable. Lower neck: No significant findings. Upper Abdomen: Parapelvic left renal cyst. Multiple gallstones in the gallbladder lumen. Multiple div erticulum involving the second portion of the duodenum suspected. IMPRESSION: 1. No evidence for aortic aneurysm, dissection, or intramural hematoma No evidence for occlusion. No evidence for pulmonary embolus. 2. Scattered pulmonary nodules throughout the lungs yearly low-dose lung cancer screening recommende d. These are grossly stable to prior on 11/17/2022. 3. Cholelithiasis. 4. Second portion duodenal diverticulum. 5. Moderate coronary artery atherosclerosis.
== END | disposition home or self-care (01) ==
LOC: RADCTMAIN 13:15
PROVIDERS: ATTEND Internal Medicine
DX: I71.20 Thoracic aortic aneurysm, without rupture, unspecified (principal); K80.20 Calculus of gallbladder without cholecystitis without obstruction; K57.10 Diverticulosis of small intestine without perforation or abscess without bleeding; I25.10 Atherosclerotic heart disease of native coronary artery without angina pectoris; R91.8 Other nonspecific abnormal finding of lung field
CPT/HCPCS: 82565; 84520; 71275; 36415; Q9967

== ENCOUNTER 2024-11-22 22:04 | Inpatient (IN) | payer MEDICARE ==
[2024-11-22 22:21] VITALS: TEMP 98.1
--- NOTE | 2024-11-22 22:45 | ED ---
Fall HPI - General Chief Complaint: Fall Stated Complaint: fall Time Seen by Provider: 11/22/24 22:26 Source: patient Mode of arrival: ambulatory - History of Present Illness Initial Comments: Patient is an 79-year-old woman who presents to have evaluation after having fallen. Patient states she was returning from grocery store, going upstairs to her residence when she fell backwards. She states that she landed on her back, head and neck. She complains of pain to the low back and the head mainly also a little bit of neck pain. She denies any neurologic symptoms. The patient states she did not lose consciousness. She did require about 20 minutes to get up and back into her house. She states that she put on her pajamas called her family and they had her come to emergency department. Patient denies neurologic symptoms. No chest pain or dyspnea. MD Complaint: fall Onset/Timin -: hour(s) Fall From: down stairs (#) When Fall Occurred: 1-3 hours [employer]LOOR [employer] Fall Witnessed: no Place Fall Occurred: home Loss of Consciousness: none Prolonged Down Time?: minute(s) (30) Symptoms Prior to Fall: none Location: head, chest, back Severity: moderate Quality: aching Context: tripped/slipped - Related Data Home Medications Medication Instructions Recorded Confirmed ALPRAZolam [Xanax] 0.25 mg PO TID 07/14/16 11/23/24 Clopidogrel [Plavix] 75 mg PO DAILY 07/14/16 11/23/24 Citalopram Hydrobromide [CeleXA] 20 mg PO DAILY 08/17/18 11/23/24 Montelukast Sodium [Singulair] 10 mg PO HS 10/13/21 11/23/24 Tolterodine Tartrate [Tolterodine 4 mg PO DAILY 10/13/21 11/23/24 Tartrate ER] rOPINIRole HCL [Requip] 0.5 mg PO HS 10/13/21 11/23/24 Famotidine [Pepcid] 40 mg PO BID 11/17/22 11/23/24 Pantoprazole [Protonix] 40 mg PO DAILY 02/05/23 11/23/24 Albuterol Inhaler [Ventolin Hfa 2 puff INHALATION RT-Q6H PRN 11/23/24 11/23/24 Inhaler] Ascorbic Acid [Vitamin C] 500 mg PO DAILY 11/23/24 11/23/24 Beclomethasone Dipropionate [Qvar 2 puff INHALATION RT-BID 11/23/24 11/23/24 40 mcg Redihaler] Mirabegron [Myrbetriq] 25 mg PO DAILY 11/23/24 11/23/24 Multivit with Calcium,Iron,Min 1 tab PO DAILY 11/23/24 11/23/24 [Women's Multivitamin] Zinc Gluconate [Zinc] 50 mg PO DAILY 11/23/24 11/23/24 diphenhydrAMINE [Benadryl] 25 mg PO HS 11/23/24 11/23/24 Previous Rx's Medication Instructions Recorded Atorvastatin [Lipitor] 40 mg PO DAILY #30 tab 02/09/23 Metoprolol Tartrate [Lopressor] 25 mg PO BID #60 tab 02/09/23 amLODIPine [Norvasc] 5 mg PO DAILY #30 tab 02/09/23 Allergies Allergy/AdvReac Type Severity Reaction Status Date / Time albuterol Allergy Severe Rapid Verified 11/22/24 22:21 Heart Rate,see comment Review of Systems ROS Statement: Those systems with pertinent positive or pertinent negative responses have been documented in the HPI. ROS Other: All systems not noted in ROS Statement are negative. Constitutional: Denies: fever, weakness Eyes: Denies: vision change Respiratory: Denies: cough, dyspnea Cardiovascular: Denies: chest pain, palpitations, syncope Gastrointestinal: Denies: abdominal pain, vomiting, diarrhea Genitourinary: Denies: dysuria, hematuria Musculoskeletal: Reports: back pain Skin: Denies: rash Neurological: Reports: headache. Denies: weakness, numbness, confusion Past Medical History Past Medical History: Asthma, CVA/TIA, Deep Vein Thrombosis (DVT), GERD/Reflux, Hypertension, Osteoarthritis (OA) Additional Past Medical History / Comment(s): "mini stroke-no residual",urinary leakage, restless leg syndrome, "thickening in left lung per scan", "lung aneurysm", Hx of Rheumatic Fever, Measles x5 and several occurances of Mumps when she was a child., COVID sep 2021, hx "broken back". History of Any Multi-Drug Resistant Organisms: None Reported Past Surgical History: Hernia Repair, Tonsillectomy, Tubal Ligation Additional Past Surgical History / Comment(s): vein stripping left leg,left carpel tunnel Past Anesthesia/Blood Transfusion Reactions: No Reported Reaction, Motion Sickness Additional Past Anesthesia/Blood Transfusion Reaction / Comment(s): no hx blood transfusion Past Psychological History: Anxiety Smoking Status: Never smoker Past Alcohol Use History: None Reported Past Drug Use History: None Reported - Past Family History Mother Family Medical History: Cancer Additional Family Medical History / Comment(s): Lung cancer Father Family Medical History: Hypertension General Exam Limitations: no limitations General appearance: alert Head exam: Present: atraumatic, normocephalic Eye exam: Present: normal appearance. Absent: scleral icterus, conjunctival injection ENT exam: Present: normal oropharynx Neck exam: Present: normal inspection, tenderness, other (Cervical collar) Respiratory exam: Present: normal lung sounds bilaterally. Absent: respiratory distress, wheezes, rales, rhonchi, stridor, accessory muscle use Cardiovascular Exam: Present: regular rate, normal rhythm, normal heart sounds. Absent: systolic murmur, diastolic murmur, rubs, gallop GI/Abdominal exam: Present: soft. Absent: distended, tenderness, guarding, rebound, rigid, mass Extremities exam: Present: normal inspection, normal capillary refill. Absent: pedal edema, calf tenderness Back exam: Present: normal inspection, paraspinal tenderness, vertebral tenderness (Low lumbar). Absent: CVA tenderness (R), CVA tenderness (L) Neurological exam: Present: alert, oriented X3. Absent: motor sensory deficit Skin exam: Present: warm, dry, intact, normal color. Absent: rash Course Vital Signs 11/22/24 11/22/24 11/23/24 22:17 23:15 01:00 Temperature 98.1 F Pulse Rate 70 72 68 Respiratory 18 18 18 Rate Blood Pressure 149/69 144/67 140/60 O2 Sat by Pulse 95 95 95 Oximetry 11/23/24 11/23/24 11/23/24 02:28 04:00 06:00 Temperature Pulse Rate 62 61 66 Respiratory 18 18 18 Rate Blood Pressure 118/56 125/59 136/60 O2 Sat by Pulse 95 95 95 Oximetry 11/23/24 11/23/24 11/23/24 08:00 09:00 11:00 Temperature Pulse Rate 65 65 65 Respiratory 17 16 17 Rate Blood Pressure 149/56 137/60 128/45 O2 Sat by Pulse 92 L 92 L 93 L Oximetry 11/23/24 11/23/24 11/23/24 12:00 16:28 20:53 Temperature 98.1 F Pulse Rate 64 65 72 Respiratory 17 18 18 Rate Blood Pressure 138/74 151/77 153/74 O2 Sat by Pulse 94 L 92 L 92 L Oximetry 11/23/24 11/24/24 11/24/24 21:41 00:00 02:00 Temperature Pulse Rate 72 63 75 Respiratory 20 18 18 Rate Blood Pressure 146/69 125/69 118/71 O2 Sat by Pulse 92 L 96 96 Oximetry 11/24/24 11/24/24 11/24/24 04:00 06:15 10:00 Temperature Pulse Rate 60 74 73 Respiratory 18 18 18 Rate Blood Pressure 134/74 144/77 145/65 O2 Sat by Pulse 96 96 96 Oximetry 11/24/24 15:10 Temperature Pulse Rate 64 Respiratory 18 Rate Blood Pressure 131/80 O2 Sat by Pulse 94 L Oximetry Medical Decision Making - Medical Decision Making Patient is 79-year-old woman here with head and back pain after fall. The workup does reveal lucency to right of the flores radiata. Patient will be admitted to have neurology consultation with MRI to distinguish possibility of mass versus previous stroke. Was pt. sent in by a medical professional or institution ([facility], VA[employer]ER, urgent care, hospital, or senior care...) When possible be specific @ -[No] Did you speak to anyone other than the patient for history (EMS, parent, family, police, friend...)? What history was obtained from this source @ -[No] Did you review nursing and triage notes (agree or disagree)? Why? @ -[I reviewed and agree with nursing and triage notes] Were old charts reviewed (outside hosp., previous admission, EMS record, old EKG, old radiological studies, urgent care reports/EKG's, senior care records)? Report findings @ -[No old charts were reviewed] Differential Diagnosis (chest pain, altered mental status, abdominal pain women, abdominal pain men, vaginal bleeding, weakness, fever, dyspnea, syncope, headach e, dizziness, GI bleed, back pain, seizure, CVA, palpatations, mental health, musculoskeletal)? @ -[Differential Weakness: Hypoglycemia, shock, sepsis, hyponatremia, anemia, infection, PA, ETOH, adverse medicine reaction, overdose, stroke, this is not meant to be an all-inclusive list. EKG interpreted by me (3pts min.). @ -[I interpreted as above] X-rays interpreted by me (1pt min.). @ -[None done] CT interpreted by me (1pt min.). @ -[None done] U/S interpreted by me (1pt. min.). @ -[None done] What testing was considered but not performed or refused? (CT, X-rays, U/S, labs)? Why? @ -[None] What meds were considered but not given or refused? Why? @ -[None] Did you discuss the management of the patient with other professionals (professionals i.e. , PA, VAULT MAKER, lab, RT, psych nurse, social media job titles, elementary education tutor, teacher, juvenile probation officer, corrections caseworker)? Give summary @ -[No] Was smoking cessation discussed for >3mins.? @ -[No] Was critical care preformed (if so, how long)? @ -[No] Were there social determinants of health that impacted care today? How? (Homelessness, low income, unemployed, alcoholism, drug addiction, transportation, low edu. Level, literacy, decrease access to med. care, fci, rehab)? @ -[No] Was there de-escalation of care discussed even if they declined (Discuss DNR or withdrawal of care, Hospice)? DNR status @ -[No] What co-morbidities impacted this encounter? (DM, HTN, Smoking, COPD, CAD, Cancer, CVA, ARF, Chemo, Hep., AIDS, mental health diagnosis, sleep apnea, morbid obesity)? @ -[None] Was patient admitted / discharged? Hospital course, mention meds given and route, prescriptions, significant lab abnormalities, going to OR and other pertinent info. @ -[See above Undiagnosed new problem with uncertain prognosis? @ -[No] Drug Therapy requiring intensive monitoring for toxicity (Heparin, Nitro, Insulin, Cardizem)? @ -[No] Were any procedures done? @ -[No] Diagnosis/symptom? @ -[Acute fall Possible stroke versus brain mass Acute, or Chronic, or Acute on Chronic? @ -[Acute Uncomplicated (without systemic symptoms) or Complicated (systemic symptoms)? @ -[Uncomplicated Side effects of treatment? @ -[No] Exacerbation, Progression, or Severe Exacerbation? @ -[No] Poses a threat to life or bodily function? How? (Chest pain, USA, PA, pneumonia, PE, COPD, DKA, ARF, appy, cholecystitis, CVA, Diverticulitis, Homicidal, Suicidal, threat to staff... and all critical care pts) @ -[Yes, requires further neurology workup All treatments are based on ideal body weight as in ED triage - Lab Data Result diagrams: 11/24/24 12:10 11/24/24 12:10 Lab Results 11/23/24 11/23/24 11/23/24 Range/Units 01:40 01:40 01:40 WBC 16.0 H (3.8-10.6) k/uL RBC 4.23 (3.80-5.40) m/uL Hgb 12.2 (11.4-16.0) gm/dL Hct 37.5 (34.0-46.0) % MCV 88.5 (80.0-100.0) fL MCH 28.8 (25.0-35.0) pg MCHC 32.5 (31.0-37.0) g/dL RDW 13.6 (11.5-15.5) % Plt Count 262 (150-450) k/uL MPV 7.9 Neutrophils % 75 % Lymphocytes % 19 % Monocytes % 4 % Eosinophils % 1 % Basophils % 0 % Neutrophils # 12.0 H (1.3-7.7) k/uL Lymphocytes # 3.1 (1.0-4.8) k/uL Monocytes # 0.6 (0-1.0) k/uL Eosinophils # 0.1 (0-0.7) k/uL Basophils # 0.0 (0-0.2) k/uL PT 11.1 (10.0-12.5) sec INR 1.0 (<1.2) APTT 22.4 (22.0-30.0) sec Sodium 136 L (137-145) mmol/L Potassium 3.7 (3.5-5.1) mmol/L Chloride 105 (98-107) mmol/L Carbon Dioxide 27 (22-30) mmol/L Anion Gap 4 mmol/L BUN 16 (7-17) mg/dL Creatinine 0.74 (0.52-1.04) mg/dL Est GFR (CKD-EPI)AfAm 89 (>60 ml/min/1.73 sqM) Est GFR (CKD-EPI)NonAf 77 (>60 ml/min/1.73 sqM) Glucose 105 H (74-99) mg/dL Estimated Ave Glu mg/dL mg/dL Hemoglobin A1c (<=6.0) % Calcium 8.7 (8.4-10.2) mg/dL Total Bilirubin 0.8 (0.2-1.3) mg/dL AST 18 (14-36) U/L ALT 10 (4-34) U/L Alkaline Phosphatase 119 (38-126) U/L Total Protein 5.8 L (6.3-8.2) g/dL Albumin 3.2 L (3.5-5.0) g/dL Vitamin B12 (200.0-944.0) pg/mL Folate (4.40-31.00) ng/mL TSH (0.465-4.680) mIU/L 11/23/24 11/23/24 11/23/24 Range/Units 01:40 01:40 01:40 WBC (3.8-10.6) k/uL RBC (3.80-5.40) m/uL Hgb (11.4-16.0) gm/dL Hct (34.0-46.0) % MCV (80.0-100.0) fL MCH (25.0-35.0) pg MCHC (31.0-37.0) g/dL RDW (11.5-15.5) % Plt Count (150-450) k/uL MPV Neutrophils % % Lymphocytes % % Monocytes % % Eosinophils % % Basophils % % Neutrophils # (1.3-7.7) k/uL Lymphocytes # (1.0-4.8) k/uL Monocytes # (0-1.0) k/uL Eosinophils # (0-0.7) k/uL Basophils # (0-0.2) k/uL PT (10.0-12.5) sec INR (<1.2) APTT (22.0-30.0) sec Sodium (137-145) mmol/L Potassium (3.5-5.1) mmol/L Chloride (98-107) mmol/L Carbon Dioxide (22-30) mmol/L Anion Gap mmol/L BUN (7-17) mg/dL Creatinine (0.52-1.04) mg/dL Est GFR (CKD-EPI)AfAm (>60 ml/min/1.73 sqM) Est GFR (CKD-EPI)NonAf (>60 ml/min/1.73 sqM) Glucose (74-99) mg/dL Estimated Ave Glu mg/dL 128 mg/dL Hemoglobin A1c 6.1 H (<=6.0) % Calcium (8.4-10.2) mg/dL Total Bilirubin (0.2-1.3) mg/dL AST (14-36) U/L ALT (4-34) U/L Alkaline Phosphatase (38-126) U/L Total Protein (6.3-8.2) g/dL Albumin (3.5-5.0) g/dL Vitamin B12 <150.0 L (200.0-944.0) pg/mL Folate 10.80 (4.40-31.00) ng/mL TSH 2.670 (0.465-4.680) mIU/L Disposition Clinical Impression: Fall Narrative: Possible stroke Disposition: ADMITTED IP TO THIS HOSP Condition: Fair Is patient prescribed a controlled substance at d/c from ED?: No
[2024-11-22] MEDS: IBUPROFEN 600 MG TAB PO STA (23:16)
[2024-11-22] MEDS: HYDROcodone/APAP 5-325MG 1 EACH TAB PO STA (23:16)
--- NOTE | 2024-11-22 23:22 | XR ---
EXAM: XR Chest, 1 View CLINICAL HISTORY: fall injury TECHNIQUE: Frontal view of the chest. COMPARISON: CT chest from FINDINGS: Lungs: Small amount of airspace opacities over bilateral middle lung zones, similar on the prior study. Scattered brain nodules identified on comparison CT are not definitely visualized. Pleural space: Unremarkable. Mediastinum: Unremarkable. Normal mediastinal contour. Bones/joints: No acute findings. Vasculature: Calcified aorta. IMPRESSION: No acute findings. Persistent Small amount of scarring/atelectasis over bilateral middle lung zones, similar on the prior study.
--- NOTE | 2024-11-22 23:32 | CT ---
ADDENDUM - Added by Jayesh Arriaza M.D. on 11/22/2024 11:35 PM (-05:00) Additional comparison for cervical spine CT: MRI of the cervical spine on 06/15/2017 882 images EXAM: CT Head Without Intravenous Contrast CLINICAL HISTORY: fall injury TECHNIQUE: Axial computed tomography images of the head/brain without intravenous contrast. CTDI is 45.2 mGy and DLP is 1140 mGy-cm. This CT exam was performed using one or more of the following dose reduction techniques: automated exposure control, adjustment of the mA and/or kV according to patient size, and/or use of iterative reconstruction technique. Coronal and sagittal reconstructions are performed. COMPARISON: Head CT from 10/19/13. Brain MRI from 07/12/2017 FINDINGS: Brain: Moderate age-related generalized volume loss and chronic small vessel ischemic changes. Small hypodense region with poorly defined border is new measuring about 18 mm transverse, 15 mm AP of right coronal radiata region on series 202 image 39 may represent age-indeterminate infarct versus parenchymal edema related to underlying neoplasm. No hemorrhage. Ventricles: Unremarkable. No ventriculomegaly. Bones/joints: No acute findings. Soft tissues: Unremarkable. Sinuses: Unremarkable as visualized. No acute sinusitis. Mastoid air cells: Unremarkable as visualized. No mastoid effusion. Orbits: Bilateral cataract surgeries. Sella: Empty sella. IMPRESSION: No intracranial hemorrhage or skull fracture Small hypodense region with poorly defined border measuring about 18 mm transverse, 15 mm AP of right coronal radiata region may represent age- indeterminate infarct versus parenchymal edema related to underlying neoplasm. Contrast enhanced MRI may help to further evaluate if patient is a candidate. EXAM: CT Cervical Spine Without Intravenous Contrast CLINICAL HISTORY: fall injury TECHNIQUE: Axial computed tomography images of the cervical spine without intravenous contrast. CTDI is 12.4 mGy and DLP is 357.9 mGy-cm. This CT exam was performed using one or more of the following dose reduction techniques: automated exposure control, adjustment of the mA and/or kV according to patient size, and/or use of iterative reconstruction technique. Coronal and sagittal reconstructions are performed. COMPARISON: No relevant prior studies available. FINDINGS: Vertebrae: Osteopenia. No fracture. Discs/spinal canal/neural foramina: Moderate-advanced degenerative disc disease. Soft tissues: Unremarkable. IMPRESSION: No fracture or subluxation of the cervical spine. <MYCVCSECTION> Communications: 11/22/24 23:41 Verify Receipt Verified receipt with MAGAN Quiroga giving report to Dr. Murcia on 11/22 23:41 (-05:00)
--- NOTE | 2024-11-23 00:03 | CT ---
EXAM: CT Lumbar Spine Without Intravenous Contrast CLINICAL HISTORY: Patient states she fell going up the stairs. Patient states that she hit her head. States lower back pain. On thinners TECHNIQUE: Axial computed tomography images of the lumbar spine without intravenous contrast. CTDI is 31.2 mGy and DLP is 1175 mGy-cm. This CT exam was performed using one or more of the following dose reduction techniques: automated exposure control, adjustment of the mA and/or kV according to patient size, and/or use of iterative reconstruction technique. Coronal and sagittal reconstructions are performed. 540 images COMPARISON: CTA chest from 10/21/2023 FINDINGS: Vertebrae: Moderate chronic compression defect at T12 with about 30% loss in height and no retropulsion. Mild chronic compression defect at T10, L1, L2, L3 with about 10-20% loss in height and no retropulsion. 4 mm of anterolisthesis of L4 and L5. Discs/spinal canal/neural foramina: Moderate degenerative disc disease. Soft tissues: Diastases of anterior abdominal/pelvic wall. Vasculature: Moderate amount of atherosclerotic calcifications. Lungs: 4 mm subpleural nodule posterior left lower lobe is again noted. Gallbladder and bile ducts: Cholelithiasis. Kidneys and ureters: Small bilateral renal cysts, cannot be fully characterized due to lack of IV contrast, measuring up to 2 cm. Stomach and bowel: Colonic diverticulosis. Appendix: Normal. IMPRESSION: 1. No acute findings. No acute fracture or subluxation. 2. Cholelithiasis.
[2024-11-23 01:57] LABS: Basophils % (A) 0 %; Eosinophils # (A) 0.1 k/uL (0-0.7); Eosinophils % (A) 1 %; HCT 37.5 % (34.0-46.0); HGB 12.2 gm/dL (11.4-16.0); Lymphocytes # (A) 3.1 k/uL (1.0-4.8); Lymphocytes % (A) 19 %; MCH 28.8 pg (25.0-35.0); MCHC 32.5 g/dL (31.0-37.0); MCV 88.5 fL (80.0-100.0); Mean Platelet Volume 7.9; Monocytes # (A) 0.6 k/uL (0-1.0); Monocytes % (A) 4 %; Neutrophils % (A) 75 %; Platelet Count 262 k/uL (150-450); RBC 4.23 m/uL (3.80-5.40); RDW 13.6 % (11.5-15.5)
[2024-11-23 02:22] LABS: ALT 10 U/L (4-34); AST 18 U/L (14-36); African American GFR (CKD) 89 (>60 ml/min/1.73 sqM); Albumin 3.2 g/dL (3.5-5.0); Alkaline Phosphatase 119 U/L (38-126); Anion Gap 4 mmol/L; Blood Urea Nitrogen 16 mg/dL (7-17); Calcium 8.7 mg/dL (8.4-10.2); Carbon Dioxide 27 mmol/L (22-30); Chloride 105 mmol/L (98-107); Glucose 105 mg/dL (74-99); Non-African American GFR(CKD) 77 (>60 ml/min/1.73 sqM); Potassium 3.7 mmol/L (3.5-5.1); Sodium 136 mmol/L (137-145); Total Bilirubin 0.8 mg/dL (0.2-1.3); Total Protein 5.8 g/dL (6.3-8.2)
[2024-11-23 02:27] LABS: Partial Thromboplastin Time 22.4 sec (22.0-30.0); Prothrombin Time 11.1 sec (10.0-12.5)
[2024-11-23] MEDS: MORPHINE SULFATE 4 MG/ML SYRINGE IV STA (02:57)
[2024-11-23] MEDS ORDERED: ACETAMINOPHEN TAB 325 MG TAB PO PRN (03:21)
[2024-11-23] MEDS ORDERED: NALOXONE 0.4 MG/ML 1 ML VIAL IV PRN (03:21)
[2024-11-23] MEDS ORDERED: MORPHINE SULFATE 4 MG/ML SYRINGE IV PRN (03:21)
[2024-11-23] MEDS: SODIUM CHLORIDE 0.9% 1,000 ML IV SCH (03:36)
[2024-11-23] MEDS ORDERED: IPRATROPIUM 0.5 MG/2.5 ML NEBU INHALATION PRN (08:09)
[2024-11-23] MEDS ORDERED: ALPRAZolam 0.25 MG TAB PO PRN (08:23)
--- NOTE | 2024-11-23 08:31 | P.HPIM ---
History of Present Illness H&P Date: 11/23/24 Chief Complaint: Fall. The patient is an 79-year-old white female with known history of reflux esophagitis. The patient has an interesting history of anxiety asthma hypertens ion and previous history of CVA. The patient was outside her house and fell. She was unable to get up without assistance and laid there for about 25 to 30 minutes. Significant back pain that she fell flat and states she was seeing "stars." She states more back pain. Mild headache. No vision issues. No amaurosis fugax. CT scan shows possible minute CVA. She was admitted for appropriate observation and control of pain. Review of Systems Constitutional: Denies chills, Denies fever Eyes: denies blurred vision, denies pain Ears, nose, mouth and throat: Denies headache, Denies sore throat Cardiovascular: Denies chest pain, Denies shortness of breath Gastrointestinal: Denies abdominal pain, Denies diarrhea, Denies nausea, Denies vomiting Genitourinary: Denies dysuria, Denies hematuria Musculoskeletal: Denies myalgias Past Medical History Past Medical History: Asthma, CVA/TIA, Deep Vein Thrombosis (DVT), GERD/Reflux, Hypertension, Osteoarthritis (OA) Additional Past Medical History / Comment(s): "mini stroke-no residual",urinary leakage, restless leg syndrome, "thickening in left lung per scan", "lung aneurysm", Hx of Rheumatic Fever, Measles x5 and several occurances of Mumps when she was a child., COVID sep 2021, hx "broken back". History of Any Multi-Drug Resistant Organisms: None Reported Past Surgical History: Hernia Repair, Tonsillectomy, Tubal Ligation Additional Past Surgical History / Comment(s): vein stripping left leg,left carpel tunnel Past Anesthesia/Blood Transfusion Reactions: No Reported Reaction, Motion Sickness Additional Past Anesthesia/Blood Transfusion Reaction / Comment(s): no hx blood transfusion Past Psychological History: Anxiety Smoking Status: Never smoker Past Alcohol Use History: None Reported Past Drug Use History: None Reported - Past Family History Mother Family Medical History: Cancer Additional Family Medical History / Comment(s): Lung cancer Father Family Medical History: Hypertension Medications and Allergies Home Medications Medication Instructions Recorded Confirmed Type ALPRAZolam [Xanax] 0.25 mg PO TID PRN 07/14/16 02/05/23 History Clopidogrel [Plavix] 75 mg PO DAILY 07/14/16 02/05/23 History Citalopram Hydrobromide [CeleXA] 20 mg PO HS 08/17/18 02/05/23 History Omeprazole 40 mg PO BID 08/17/18 02/05/23 History Montelukast Sodium [Singulair] 10 mg PO HS 10/13/21 02/05/23 History Tolterodine Tartrate [Tolterodine 4 mg PO DAILY 10/13/21 02/05/23 History Tartrate ER] rOPINIRole HCL [Requip] 0.5 mg PO HS 10/13/21 02/05/23 History Famotidine [Pepcid] 40 mg PO BID 11/17/22 02/05/23 History Celecoxib [CeleBREX] 200 mg PO DAILY 02/05/23 02/05/23 History Pantoprazole [Protonix] 40 mg PO DAILY 02/05/23 02/05/23 History Atorvastatin [Lipitor] 40 mg PO DAILY #30 tab 02/09/23 Rx Cephalexin [Keflex] 500 mg PO Q6HR 7 Days #28 cap 02/09/23 Rx Metoprolol Tartrate [Lopressor] 25 mg PO BID #60 tab 02/09/23 Rx Tiotropium 2.5 Mcg/Puff [Spiriva 2 puff INHALATION RT-DAILY PRN #1 02/09/23 Rx Respimat 2.5 Mcg] each amLODIPine [Norvasc] 5 mg PO DAILY #30 tab 02/09/23 Rx Allergies Allergy/AdvReac Type Severity Reaction Status Date / Time albuterol Allergy Severe Rapid Verified 11/22/24 22:21 Heart Rate,see comment Physical Exam Vitals: Vital Signs Temp Pulse Resp BP Pulse Ox 11/23/24 06:00 66 18 136/60 95 11/23/24 04:00 61 18 125/59 95 11/23/24 02:28 62 18 118/56 95 11/23/24 01:00 68 18 140/60 95 11/22/24 23:15 72 18 144/67 95 11/22/24 22:17 98.1 F 70 18 149/69 95 Intake and Output 11/22/24 11/23/24 11/23/24 22:59 06:59 14:59 Other: Weight 87.09 kg - Constitutional General appearance: cooperative, no acute distress - EENT Eyes: no abnormal pupil - Neck Neck: no lymphadenopathy - Respiratory Respiratory: bilateral: CTA - Cardiovascular Rhythm: regular Heart sounds: normal: S1, S2 Abnormal Heart Sounds: no S3 Gallop - Gastrointestinal General gastrointestinal: no tenderness - Integumentary Integumentary: no cellulitis - Musculoskeletal Musculoskeletal: generalized weakness, strength equal bilaterally - Psychiatric Psychiatric: A&O x's 3, intact judgment & insight Results CBC & Chem 7: 11/23/24 01:40 11/23/24 01:40 Labs: Abnormal Lab Results - Last 24 Hours (Table) 11/23/24 11/23/24 Range/Units 01:40 01:40 WBC 16.0 H (3.8-10.6) k/uL Neutrophils # 12.0 H (1.3-7.7) k/uL Sodium 136 L (137-145) mmol/L Glucose 105 H (74-99) mg/dL Total Protein 5.8 L (6.3-8.2) g/dL Albumin 3.2 L (3.5-5.0) g/dL Assessment and Plan (1) CVA (cerebral vascular accident) Current Visit: Yes Status: Acute Code(s): I63.9 - CEREBRAL INFARCTION, UNSPECIFIED SNOMED Code(s): 407353246 (2) Asthma Current Visit: No Status: Acute Code(s): J45.909 - UNSPECIFIED ASTHMA, UNCOMPLICATED SNOMED Code(s): 445216197 (3) History of DVT (deep vein thrombosis) Current Visit: No Status: Acute Code(s): Z86.718 - PERSONAL HISTORY OF OTHER VENOUS THROMBOSIS AND EMBOLISM SNOMED Code(s): 995265274 (4) Hypertension Current Visit: No Status: Acute Code(s): I10 - ESSENTIAL (PRIMARY) HYPERTENSION SNOMED Code(s): 72728004 Plan: Restart home medication. Ask neurology to evaluate CT scan for possible CVA. PT evaluation for ambulatory strengthening. Will continue to follow. The patient is otherwise a full code. Time with Patient: Greater than 30
[2024-11-23] MEDS ORDERED: PANTOPRAZOLE 40 MG TABLET PO SCH (09:00)
[2024-11-23] MEDS ORDERED: MELOXICAM 7.5 MG TAB PO SCH (09:00)
[2024-11-23] MEDS: amLODIPine 5 MG TAB PO SCH (09:08)
[2024-11-23] MEDS: ATORVASTATIN 40 MG TAB PO SCH (09:08)
[2024-11-23] MEDS: CLOPIDOGREL 75 MG TAB PO SCH (09:08)
[2024-11-23] MEDS: FAMOTIDINE 20 MG TAB PO SCH (09:08)
[2024-11-23] MEDS: OXYBUTYNIN 10 MG TAB.ER.24 PO SCH (09:09)
[2024-11-23] MEDS: PANTOPRAZOLE 40 MG TABLET PO SCH (09:09)
[2024-11-23] MEDS: METOPROLOL TARTRATE 25 MG TAB PO SCH (09:09)
[2024-11-23] MEDS: traMADol 50 MG TAB PO PRN (09:10)
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
[2024-11-23] MEDS: MONTELUKAST 10 MG TAB PO SCH (20:57)
[2024-11-23] MEDS: CITALOPRAM HYDROBROMIDE 20 MG TAB PO SCH (20:57)
[2024-11-24 02:00] VITALS: RESP 18
[2024-11-24 02:58] LABS: Vitamin B12 <150.0 pg/mL (200.0-944.0)
[2024-11-24 12:25] LABS: RBC 3.96 m/uL (3.80-5.40); WBC 10.3 k/uL (3.8-10.6)
[2024-11-24 12:26] LABS: Basophils # (A) 0.1 k/uL (0-0.2); Basophils % (A) 1 %; Eosinophils # (A) 0.2 k/uL (0-0.7); Eosinophils % (A) 2 %; HCT 35.4 % (34.0-46.0); HGB 11.5 gm/dL (11.4-16.0); Lymphocytes # (A) 2.4 k/uL (1.0-4.8); Lymphocytes % (A) 24 %; MCH 29.1 pg (25.0-35.0); MCHC 32.6 g/dL (31.0-37.0); MCV 89.3 fL (80.0-100.0); Mean Platelet Volume 7.9; Monocytes # (A) 0.5 k/uL (0-1.0); Monocytes % (A) 5 %; Neutrophils % (A) 68 %; Platelet Count 251 k/uL (150-450); RDW 13.6 % (11.5-15.5)
[2024-11-24 12:37] LABS: ALT 9 U/L (4-34); AST 16 U/L (14-36); African American GFR (CKD) >90 (>60 ml/min/1.73 sqM); Albumin 3.2 g/dL (3.5-5.0); Alkaline Phosphatase 95 U/L (38-126); Anion Gap 5 mmol/L; Blood Urea Nitrogen 11 mg/dL (7-17); Calcium 8.7 mg/dL (8.4-10.2); Carbon Dioxide 26 mmol/L (22-30); Chloride 106 mmol/L (98-107); Glucose 108 mg/dL (74-99); Non-African American GFR(CKD) 81 (>60 ml/min/1.73 sqM); Potassium 3.3 mmol/L (3.5-5.1); Sodium 137 mmol/L (137-145); Total Bilirubin 1.6 mg/dL (0.2-1.3); Total Protein 5.6 g/dL (6.3-8.2)
[2024-11-24 13:42] LABS: Chol/HDL Ratio 2.44 Ratio; LDL Cholesterol,Calculated 46.4 mg/dL (0.0-131.0)
--- NOTE | 2024-11-24 14:11 | P.DS ---
Providers Date of admission: 11/23/24 03:24 Expected date of discharge: 11/24/24 Attending physician: Anmol Rey Consults: 11/23/24 03:21 Consult Physician Routine Consulting Provider: Sunshine Jaime Consult Reason/Comments: Ischemic stroke vs mass Do you want consulting provider notified?: Yes Primary care physician: Anmol Rey Hospital Course: Discharge diagnoses; Fall Back pain Cephalgia Asthma History of DVT Hypertension Hospital course; The patient is an 79-year-old white female with known history of reflux esophagitis. The patient has an interesting history of anxiety asthma hypertension and previous history of CVA. The patient was outside her house and fell. She was unable to get up without assistance and laid there for about 25 to 30 minutes. Significant back pain that she fell flat and states she was seeing "stars." She states more back pain. Mild headache. No vision issues. No amaurosis fugax. CT scan shows possible minute CVA. She was admitted for appropriate observation and control of pain. 11/24. Dr. Salas took over care. Patient was being seen by neurology, they reviewed patient imaging, at this time patient neuroexam is totally benign, patient had previous MRIs done as well with similar changes. At this time neurology cleared the patient for discharge, recommend outpatient follow-up. Patient was counseled to follow-up with orthopedic spine for for her back pain PHYSICAL EXAMINATION: GENERAL: The patient is alert and oriented x3, not in any acute distress. Well developed, well nourished. HEENT: Pupils are round and equally reacting to light. EOMI. No scleral icterus. No conjunctival pallor. Normocephalic, atraumatic. No pharyngeal erythema. No thyromegaly. CARDIOVASCULAR: S1 and S2 present. No murmurs, rubs, or gallops. PULMONARY: Chest is clear to auscultation, no wheezing or crackles. ABDOMEN: Soft, nontender, nondistended, normoactive bowel sounds. No palpable organomegaly. MUSCULOSKELETAL: No joint swelling or deformity. EXTREMITIES: No cyanosis, clubbing, or pedal edema. NEUROLOGICAL: Gross neurological examination did not reveal any focal deficits. SKIN: No rashes. Dictation was produced using [employer] dictation software. please excuse any grammatical, word or spelling errors. Patient Condition at Discharge: Fair Plan - Discharge Summary New Discharge Prescriptions: Continue ALPRAZolam [Xanax] 0.25 mg PO TID Clopidogrel [Plavix] 75 mg PO DAILY Citalopram Hydrobromide [CeleXA] 20 mg PO DAILY Tolterodine Tartrate [Tolterodine Tartrate ER] 4 mg PO DAILY Montelukast Sodium [Singulair] 10 mg PO HS Famotidine [Pepcid] 40 mg PO BID Pantoprazole [Protonix] 40 mg PO DAILY Atorvastatin [Lipitor] 40 mg PO DAILY #30 tab Metoprolol Tartrate [Lopressor] 25 mg PO BID #60 tab Ascorbic Acid [Vitamin C] 500 mg PO DAILY Albuterol Inhaler [Ventolin Hfa Inhaler] 2 puff INHALATION RT-Q6H PRN PRN Reason: Shortness Of Breath Mirabegron [Myrbetriq] 25 mg PO DAILY diphenhydrAMINE [Benadryl] 25 mg PO HS rOPINIRole HCL [Requip] 0.5 mg PO HS amLODIPine [Norvasc] 5 mg PO DAILY #30 tab Zinc Gluconate [Zinc] 50 mg PO DAILY Multivit with Calcium,Iron,Min [Women's Multivitamin] 1 tab PO DAILY Beclomethasone Dipropionate [Qvar 40 mcg Redihaler] 2 puff INHALATION RT-BID Discharge Medication List ALPRAZolam [Xanax] 0.25 mg PO TID 07/14/16 [History] Clopidogrel [Plavix] 75 mg PO DAILY 07/14/16 [History] Citalopram Hydrobromide [CeleXA] 20 mg PO DAILY 08/17/18 [History] Montelukast Sodium [Singulair] 10 mg PO HS 10/13/21 [History] Tolterodine Tartrate [Tolterodine Tartrate ER] 4 mg PO DAILY 10/13/21 [History] rOPINIRole HCL [Requip] 0.5 mg PO HS 10/13/21 [History] Famotidine [Pepcid] 40 mg PO BID 11/17/22 [History] Pantoprazole [Protonix] 40 mg PO DAILY 02/05/23 [History] Atorvastatin [Lipitor] 40 mg PO DAILY #30 tab 02/09/23 [Rx] Metoprolol Tartrate [Lopressor] 25 mg PO BID #60 tab 02/09/23 [Rx] amLODIPine [Norvasc] 5 mg PO DAILY #30 tab 02/09/23 [Rx] Albuterol Inhaler [Ventolin Hfa Inhaler] 2 puff INHALATION RT-Q6H PRN 11/23/24 [History] Ascorbic Acid [Vitamin C] 500 mg PO DAILY 11/23/24 [History] Beclomethasone Dipropionate [Qvar 40 mcg Redihaler] 2 puff INHALATION RT-BID 11/23/24 [History] Mirabegron [Myrbetriq] 25 mg PO DAILY 11/23/24 [History] Multivit with Calcium,Iron,Min [Women's Multivitamin] 1 tab PO DAILY 11/23/24 [History] Zinc Gluconate [Zinc] 50 mg PO DAILY 11/23/24 [History] diphenhydrAMINE [Benadryl] 25 mg PO HS 11/23/24 [History] Follow up Appointment(s)/Referral(s): Anmol Rey MD [Primary Care Provider] - 1-2 days Discharge Disposition: HOME SELF-CARE
[2024-11-24 15:11] VITALS: BP 131/80; PULSE 64
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
--- NOTE | 2024-11-25 11:15 | P.PN ---
Progress Note - Text Progress Note Date: 11/25/24 Telephone documentation: Called patient's home to inform about the newly arrived blood test results, also to inquire about her overall condition. B12 <150, folate 10.80, TSH 2.67. Patient continues to have significant low back pain. Patient states that she is very careful, using a cane. She lives with her son and [id number], and they are always there to watch her. With her significant back pain, patient was recommended to return to the ER for further evaluation, like an MRI of the lumbar spine and perhaps orthopedic surgery consultation. Patient states that she does not want to come to the hospital. Patient follows up with [facility] Dr. Araiza. Patient was strongly recommended to follow-up with her orthopedic surgeon in the morning. She may need an MRI of the lumbar spine to rule out any new compression fractures. She was strongly recommended to avoid any falls. She should continue using cane and either her son or [id number] should be close to her when she is even going to the bathroom. Also informed her about B12 deficiency. She was recommended to follow-up with her primary physician to start B12 injections. Also discussed with patient's son, who felt comfortable with the above plan.
== END 2024-11-24 15:10 | disposition home or self-care (01) | DRG 552 ==
LOC: EC 22:04 → 3SCARD 11-23 03:24
PROVIDERS: ADMIT Family Medicine; ATTEND Family Medicine
DX: M54.50 Low back pain, unspecified (principal); S09.8XXA Other specified injuries of head, initial encounter; M54.2 Cervicalgia; I10 Essential (primary) hypertension; J45.909 Unspecified asthma, uncomplicated; I77.89 Other specified disorders of arteries and arterioles; E53.8 Deficiency of other specified B group vitamins; F41.9 Anxiety disorder, unspecified; K21.00 Gastro-esophageal reflux disease with esophagitis, without bleeding; W10.9XXA Fall (on) (from) unspecified stairs and steps, initial encounter; Y92.008 Other place in unspecified non-institutional (private) residence as the place of occurrence of the external cause; Y99.8 Other external cause status; Z79.02 Long term (current) use of antithrombotics/antiplatelets; Z79.1 Long term (current) use of non-steroidal anti-inflammatories (NSAID); Z79.899 Other long term (current) drug therapy; Z86.16 Personal history of COVID-19; Z86.718 Personal history of other venous thrombosis and embolism; Z86.73 Personal history of transient ischemic attack (TIA), and cerebral infarction without residual deficits; Z88.8 Allergy status to other drugs, medicaments and biological substances; Z87.81 Personal history of (healed) traumatic fracture; Z82.49 Family history of ischemic heart disease and other diseases of the circulatory system
CPT/HCPCS: 36415; 70450; 71045; 72125; 72131; 80053; 80061; 82607; 82746; 83036; 84443; 85025; 85610; 85730

== ENCOUNTER → 2024-12-21 | Outpatient (CLI) | payer MEDICARE ==
--- NOTE | 2024-12-21 14:52 | XR ---
EXAMINATION TYPE: XR tibia fibula LT DATE OF EXAM: 12/21/2024 2:41 PM COMPARISON: 08/17/2018 left knee CLINICAL INDICATION: Female, 79 years old with history of S80.12XA CONTUSION OF LEFT LOWER LEG, INITI AL ENCO, pain TECHNIQUE: 2 view(s) obtained. FINDINGS: No acute fractures or dislocations. No acute joint space abnormality is evident. There is prior left knee prosthesis placement. No acute fractures or loosening evident. There is some soft tissue prominence over the anterior and lateral proximal to mid foreleg. Clinical correlation recommended IMPRESSION: 1. No suspicious acute osseous abnormality left foreleg. 2. There may be some soft tissue swelling over the mid diaphyseal left leg. Clinical correlation zafar mmended. [facility], , 12/21/2024 2:50 PM
== END | disposition home or self-care (01) ==
LOC: RADXRMAIN 14:22
PROVIDERS: ATTEND Family Medicine
DX: S80.12XA Contusion of left lower leg, initial encounter (principal)

== ENCOUNTER → 2025-02-08 | Outpatient (CLI) | payer MEDICARE ==
--- NOTE | 2025-02-08 15:36 | XR ---
EXAMINATION TYPE: XR hand complete LT, XR wrist complete LT DATE OF EXAM: 02/08/2025 CLINICAL INDICATION: Female, 79 years old with history of M79.642 PAIN L HAND M25.532 PAIN L WRIST, p ain TECHNIQUE: Frontal, lateral and oblique images of the left wrist and hand are obtained. Fourth scaph oid view left wrist. COMPARISON: None. FINDINGS: Osseous structures are demineralized. There is no acute fracture/dislocation evident in he left wrist or hand. Severe degenerative change at the triscaphe joint. Moderate to severe degenerativ e change at base of first metacarpal. Prominent spur at the first interphalangeal joint. Mild narrowi ng throughout the PIP and the IP joints of the fingers. Punctate round 2 mm density projects between the second and third metacarpals could reflect soft tissue foreign body is not as well-seen on latera l view suggesting it is more superficial in location. IMPRESSION: As above. [facility], , 02/08/2025 3:33 PM
== END | disposition home or self-care (01) ==
LOC: RADXRMAIN 14:57
PROVIDERS: ATTEND Family Medicine
DX: M18.12 Unilateral primary osteoarthritis of first carpometacarpal joint, left hand (principal)

== ENCOUNTER → 2025-04-04 | Outpatient (CLI) | payer MEDICARE ==
--- NOTE | 2025-04-04 13:41 | US ---
EXAMINATION TYPE: US carotid duplex BILAT DATE OF EXAM: 04/04/2025 COMPARISON: US 2011 CLINICAL INDICATION: Female, 79 years old with history of G45.9 TRANSIENT CEREBRAL ISCHEMIC ATTACK, U NSPECIF; TECHNIQUE: Grayscale, color Doppler and spectral Doppler evaluation of the bilateral carotid systems and vertebral arteries. Indirect Doppler criteria was utilized. FINDINGS: EXAM MEASUREMENTS: RIGHT: Peak Systolic Velocity (PSV) cm/sec ----- Right CCA: 64.3 ----- Right ICA: 58.0 ----- Right ECA: 68.3 ICA/CCA ratio: 0.9 RIGHT: End Diastole cm/sec ----- Right CCA: 4.6 ----- Right ICA: 7.6 ----- Right ECA: 0.0 LEFT: Peak Systolic Velocity (PSV) cm/sec ----- Left CCA: 63.9 ----- Left ICA: 115.0 ----- Left ECA: 55.4 ICA/CCA ratio: 1.8 LEFT: End Diastole cm/sec ----- Left CCA: 4.1 ----- Left ICA: 12.5 ----- Left ECA: 0.0 VERTEBRALS (direction of flow): Right Vertebral: Antegrade Left Vertebral: Antegrade Rhythm: Normal IMPRESSION: Right: No hemodynamically significant stenosis. Left: No hemodynamically significant stenosis. Criteria for Assigning % of Stenosis / Diameter reduction (Estimation based on the indirect measurements of the internal carotid artery velocities (ICA PSV). 1. Normal (no stenosis)=ICA PSV < 180 cm/s: ratio < 2.0: ICA EDV<40 cm/s. 2. Less than 50% stenosis=ICA PSV < 180 cm/s: ratio < 2.0: ICA EDV<40 cm/s. 3. 50 to 69% stenosis=ICA PSV of 180 to 230 cm/s: ration 2.0 ? 4.0: ICA EDV 40-100 cm/s. PSV 125-180 cm/sec and ICA/CCA PSV Ratio ? 2.0 is also consistent with 50-69% stenosis 4. Greater than 70% stenosis to near occlusion= ICA PSV > 230 cm/s: ratio > 4.0: ICA EDV > 100 cm/s. 5. Near occlusion= ICA PSV velocities may be low or undetectable: variable ratio and ICA EDV. 6. Total occlusion=unable to detect flow. [facility], , 04/04/2025 1:38 PM
--- NOTE | 2025-04-04 14:05 | CT ---
EXAMINATION TYPE: CT brain wo con DATE OF EXAM: 04/04/2025 COMPARISON: CT brain and C-spine dated 11/22/2024 CLINICAL INDICATION: Female, 79 years old with history of G45.9, R42; PHH, TIA CT DLP: 1217.1 mGycm Automated exposure control for dose reduction was used.. FINDINGS: The ventricles, basal cisterns and sulci over the convexities are mildly enlarged consistent with mil d generalized age-appropriate atrophy. There is no mass effect or shift in midline structures. There is mild to moderate decreased density in the periventricular white matter consistent with chron ic ischemic white matter evaluation. There is no acute intra or extra-axial hemorrhage. The posterior fossa and brainstem, fourth ventricle and cerebellar pontine angles appear normal. The intraorbital contents appear normal and symmetric. Visualized paranasal sinuses and mastoid air cells are well aerated. IMPRESSION: 1. No acute bleed or mass effect. 2. Mild to moderate age appropriate senescent changes. [facility], , 04/04/2025 2:03 PM
== END | disposition home or self-care (01) ==
LOC: RADUSWWP 12:57
PROVIDERS: ATTEND Family Medicine
DX: G45.9 Transient cerebral ischemic attack, unspecified (principal); R42 Dizziness and giddiness
CPT/HCPCS: 70450; 93880